=== PATIENT | female | born 1960 | race Caucasian/White ===

== ENCOUNTER → 2016-05-12 | Outpatient (CLI) | payer OTHER ==
[~2016-05-12] MED LIST: /ESOM40CA OR; /MOM400 PO; /MOXI40TA OR; /MOXI40TA PO; /ONDA4TA OR; ALBU17IN INH; ALBU17IN2 INH; ALLE25CA OR; AMBI12.52 PO; ASPI81TA85 PO; BUTRAN TD; BUTRANS PATCH TOP; CARA1TAB2 PO; CIPR500T3 PO; CIPROFLOXACIN AD; CYCL10TA PO; DEXAMETHASONE AD; DEXI60CA PO; DIPH2.5L PO; DULC10SU9 PR; EAR6.5SO3 AS; EYEDRO OD; FENT25DI22 TD; FLEXERIL PO; FLON1SPR; FLUT50SP; HYDROCORTISONE0.5 % TOP; INDE80CA PO; LEVO500T PO; LEVO750T PO; LEVO88TA3 PO; LORA10TA2 PO; LYRI150C PO; LYRI200C PO; LYRI75CA PO; MEDR8TAB PO; METH750T PO; MOME50SP; OXYC15TA76 PO; OXYC30TA84 PO; OXYCONTIN PO; OXYCPOW25 PO; PANT40TA2 PO; PENN1.5S2 TD; PEPC20TA2 OR; PERC5TAB6 PO; PROP60TA OR; PROP80TA PO; RANI300T PO; RIZA10TA2 PO; RIZATRIPTAN PO; SENO8.6T9 PO; SOMA350T PO; STOO100C PO; SUCR1SUS PO; SYNT75TA OR; VICO5TAB PO; VOLT1GEL TOP; ZANA4CAP PO; ZANA4TAB PO; ZEGERID PO; ZOFR4TAB3 PO; ZOLM5TAB PO; [UNRECOGNIZED DRUG - CODE] PO; [UNRECOGNIZED DRUG - CODE] PO; [UNRECOGNIZED DRUG - CODE] PO; [UNRECOGNIZED DRUG - OTHER] PO; [UNRECOGNIZED DRUG - OTHER] PO; [UNRECOGNIZED DRUG - REMARK] PO; depo-provera IM; propanolol PO
[2016-05-12 12:28] LABS: ANION GAP 8 MEQ/L (8-16); BLOOD UREA NITROGEN 4 MG/DL (7-18); CALCIUM LEVEL 8.7 MG/DL (8.5-10.1); CARBON DIOXIDE LEVEL 28 MEQ/L (21-32); CHLORIDE LEVEL 112 MEQ/L (98-107); CREATININE FOR GFR 0.62 MG/DL (0.55-1.02); GLOMERULAR FILTRATION RATE > 60.0 (>51); GLUCOSE, FASTING 81 MG/DL (70-105); POTASSIUM SERUM 3.4 MEQ/L (3.5-5.1); SODIUM LEVEL 148 MEQ/L (136-145)
== END ==
LOC: M LAB 10:55
PROVIDERS: ATTEND Psychiatry & Neurology Neurology
DX: Z86.73 Personal history of transient ischemic attack (TIA), and cerebral infarction without residual deficits (principal)

== ENCOUNTER → 2016-06-14 | Outpatient (CLI) | payer OTHER ==
--- NOTE | 2016-06-14 09:05 | REP ---
Complete abdominal sonography: History: Dysphasia, weight loss, epigastric abdominal pain. Comparison abdominal CT study February 19, 2016. Comparison sonography April 21, 2010. Findings: Scanning through the right upper quadrant of the abdomen in this patient who is status post cholecystectomy demonstrates normal homogeneous liver parenchyma. Common bile duct is at the upper range of normal post cholecystectomy measured at 9.5 mm. This is unchanged from the comparison CT study. Limited views of the pancreas show no abnormality. The pancreatic tail is obscured by abdominal gas. Homogeneous spleen parenchyma is seen. The spleen is not enlarged, 11.5 cm. A normal caliber aorta is seen with atherosclerotic irregularity. No ascites is seen. Renal cortical echogenicity pattern is normal and renal contours are smooth. No evidence of hydronephrosis seen. The right kidney measures 11.1 x 4.8 x 4.0 cm. Left renal dimensions are 11.3 x 4.8 x 3.3 cm. Impression: Post cholecystectomy. Aortic atherosclerosis. No other abnormality. Signed by Axel Barker MD 06/14/2016 02:59 P
== END ==
LOC: M RAD 07:22
PROVIDERS: ATTEND Internal Medicine Gastroenterology
DX: R63.4 Abnormal weight loss (principal); R10.13 Epigastric pain; R13.10 Dysphagia, unspecified

== ENCOUNTER → 2016-06-24 | Outpatient (CLI) | payer OTHER ==
[2016-06-24 10:15] LABS: BASO # 0.1 K/mm3 (0.0-0.2); BASO % 0.9 % (0.0-1.0); EOS # 0.4 K/mm3 (0.0-0.50); EOS % 4.6 % (0.0-3.0); LARGE UNSTAINED CELL # 0.1 K/mm3 (0.0-0.4); LARGE UNSTAINED CELL % 0.9 % (0.0-4.0); LYMPH # 1.8 K/mm3 (1.5-4.5); LYMPH % 20.7 % (24.0-44.0); MEAN CORPUSCULAR HEMOGLOBIN 30.4 pg (27.0-33.0); MEAN CORPUSCULAR HGB CONC 34.7 g/dl (32.0-36.5); MEAN CORPUSCULAR VOLUME 87.6 fl (80.0-96.0); MONO # 0.3 K/mm3 (0.0-0.8); NEUTROPHILS # 5.7 K/mm3 (1.8-7.7); NEUTROPHILS % 68.8 % (36.0-66.0); PLATELET COUNT, AUTOMATED 211 k/mm3 (150-450); RED CELL DISTRIBUTION WIDTH 13.4 % (11.5-14.5); WHITE BLOOD COUNT 8.3 K/mm3 (4.0-10.0)
[2016-06-24 10:49] LABS: ALBUMIN 4.2 GM/DL (3.2-5.2); ALBUMIN/GLOBULIN RATIO 1.56 (1.00-1.93); ALKALINE PHOSPHATASE 153 U/L (45-117); ALT/SGPT 25 U/L (12-78); ANION GAP 11 MEQ/L (8-16); AST/SGOT 35 U/L (15-37); BILIRUBIN,TOTAL 0.9 MG/DL (0.2-1.0); BLOOD UREA NITROGEN 11 MG/DL (7-18); CALCIUM LEVEL 9.2 MG/DL (8.5-10.1); CARBON DIOXIDE LEVEL 29 MEQ/L (21-32); CHLORIDE LEVEL 103 MEQ/L (98-107); CHOLESTEROL LEVEL 153 MG/DL (<200); CREATININE FOR GFR 0.77 MG/DL (0.55-1.02); FREE T4 2.04 NG/DL (0.76-1.46); GLOMERULAR FILTRATION RATE > 60.0 (>51); GLUCOSE, FASTING 91 MG/DL (70-105); POTASSIUM SERUM 3.2 MEQ/L (3.5-5.1); SODIUM LEVEL 143 MEQ/L (136-145); TOTAL PROTEIN 6.9 GM/DL (6.4-8.2); TRIGLYCERIDES LEVEL 135 MG/DL (<150)
== END ==
LOC: M LAB 09:49
PROVIDERS: ATTEND Nurse Practitioner Family
DX: E78.4 Other hyperlipidemia (principal); E55.9 Vitamin D deficiency, unspecified; E03.9 Hypothyroidism, unspecified; K21.9 Gastro-esophageal reflux disease without esophagitis

== ENCOUNTER → 2016-08-04 | Outpatient (CLI) | payer OTHER ==
[2016-08-04 07:36] LABS: ANION GAP 10 MEQ/L (8-16); BLOOD UREA NITROGEN 6 MG/DL (7-18); CALCIUM LEVEL 8.5 MG/DL (8.5-10.1); CARBON DIOXIDE LEVEL 27 MEQ/L (21-32); CHLORIDE LEVEL 109 MEQ/L (98-107); CREATININE FOR GFR 0.65 MG/DL (0.55-1.02); FREE T4 1.42 NG/DL (0.76-1.46); GLOMERULAR FILTRATION RATE > 60.0 (>51); GLUCOSE, FASTING 82 MG/DL (70-105); POTASSIUM SERUM 4.4 MEQ/L (3.5-5.1); SODIUM LEVEL 146 MEQ/L (136-145)
== END ==
LOC: M LAB 06:10
PROVIDERS: ATTEND Nurse Practitioner Family
DX: E03.9 Hypothyroidism, unspecified (principal); I10 Essential (primary) hypertension

== ENCOUNTER 2016-09-25 14:37 | Inpatient (IN) | payer OTHER ==
[~2016-09-25] VITALS: Ht 160 cm; Wt 49.9 kg
[2016-09-25] MEDS ORDERED: CLOPIDOGREL (14:50)
[2016-09-25] MEDS ORDERED: LEVO75TA4 PO (14:50)
[2016-09-25] MEDS ORDERED: TIZANIDINE (14:50)
[2016-09-25] MEDS ORDERED: fentaNYL 100 MCG/2 ML INJECTION (J3010) IM ONE (16:45)
[2016-09-25] MEDS ORDERED: NS 1,000 ML IV ONE (16:45)
[2016-09-25] MEDS ORDERED: METOCLOPRAMIDE INJ 10MG/2ML VIAL (J2765) IV ONE (16:45)
[2016-09-25] MEDS ORDERED: READI-CAT 2 PO ONE (18:00)
--- NOTE | 2016-09-25 18:11 | ED PDOC ---
Post-Departure Follow-Up ASKED TO SPEAK TO PT AT THIS TIME REGARDING IV PLACEMENT. NURSING STAFF WAS UNABLE TO PLACE IV SITE IN THE LEFT ARM AND PT INITIALLY REFUSING USE OF RIGHT ARM DUE TO PRIOR HX OF STROKE AFFECTING THAT SIDE. SPOKE WITH PT AND ASKED PERMISSION TO UTILIZE RIGHT ARM TO ATTEMPT IV PLACEMENT SO WE CAN TREAT WITH FLUIDS AND MEDICATIONS. PT AND DAUGHTER IN AGREEMENT AT THIS TIME. LEW ALVARES PA-C September 25, 2016 18:11
[2016-09-25 19:31] LABS: BASO % 0.1 % (0.0-1.0); EOS # 0.1 K/mm3 (0.0-0.50); EOS % 1.5 % (0.0-3.0); LARGE UNSTAINED CELL # 0.1 K/mm3 (0.0-0.4); LARGE UNSTAINED CELL % 1.1 % (0.0-4.0); LYMPH # 1.2 K/mm3 (1.5-4.5); LYMPH % 24.5 % (24.0-44.0); MEAN CORPUSCULAR HGB CONC 34.2 g/dl (32.0-36.5); MEAN CORPUSCULAR VOLUME 87.8 fl (80.0-96.0); MONO # 0.2 K/mm3 (0.0-0.8); MONO % 4.1 % (0.0-5.0); NEUTROPHILS # 3.3 K/mm3 (1.8-7.7); NEUTROPHILS % 68.6 % (36.0-66.0); PLATELET COUNT, AUTOMATED 182 k/mm3 (150-450); RED CELL DISTRIBUTION WIDTH 13.9 % (11.5-14.5); WHITE BLOOD COUNT 4.8 K/mm3 (4.0-10.0)
[2016-09-25 19:56] LABS: ALBUMIN 3.5 GM/DL (3.2-5.2); ALBUMIN/GLOBULIN RATIO 1.06 (1.00-1.93); ALKALINE PHOSPHATASE 142 U/L (45-117); ALT/SGPT 18 U/L (12-78); AMYLASE 42 U/L (25-115); ANION GAP 19 MEQ/L (8-16); AST/SGOT 27 U/L (15-37); BILIRUBIN,DIRECT 0.2 MG/DL (0.0-0.2); BILIRUBIN,TOTAL 0.7 MG/DL (0.2-1.0); BLOOD UREA NITROGEN 11 MG/DL (7-18); CALCIUM LEVEL 8.4 MG/DL (8.5-10.1); CARBON DIOXIDE LEVEL 15 MEQ/L (21-32); CHLORIDE LEVEL 107 MEQ/L (98-107); CREATININE FOR GFR 0.58 MG/DL (0.55-1.02); GLOMERULAR FILTRATION RATE > 60.0 (>51); GLUCOSE, FASTING 58 MG/DL (70-105); POTASSIUM SERUM 3.7 MEQ/L (3.5-5.1); SODIUM LEVEL 141 MEQ/L (136-145); TOTAL PROTEIN 6.8 GM/DL (6.4-8.2)
[2016-09-25] MEDS ORDERED: TRIMETHOBENZAMIDE HCL INJ 200 MG/2 ML VIAL (J3250) IM ONE (20:30)
--- NOTE | 2016-09-25 21:42 | ECGEPIP ---
Stationary ECG Study [facility] - ED Test Date: 2016-09-25 Pat Name: SINDY ROY Department: Room: - Gender: F Manager Gift: lakhwinder : [id number] Requested By: LEW Tian PA-C Order Number: [id number] Reading MD: Genaro Alberts Measurements Intervals [place] Rate: 66 P: 63 [place]: 124 QRS: 36 QRSD: 90 T: 22 QT: 436 QTc: 458 Interpretive Statements SINUS RHYTHM NONSPECIFIC T-WAVE ABNORMALITY SIMILAR TO 12/02/15 Electronically Signed On 09-25-2016 21:41:56 EDT by Genaro Alberts
[2016-09-25] MEDS ORDERED: DEXTROSE 50% 50 ML SYRINGE IV STA (23:49)
[2016-09-26] MEDS ORDERED: NS 1,000 ML IV SCH
[2016-09-26] MEDS ORDERED: BISACODYL 5 MG TAB PO PRN
[2016-09-26] MEDS ORDERED: ACETAMINOPHEN TAB 650MG DOSE (2X325MG) PO PRN
[2016-09-26] MEDS ORDERED: D5W/0.45% SODIUM CHLORIDE 1,000 ML IV SCH (00:15)
[2016-09-26] MEDS ORDERED: CLOP75TA2 PO (00:23)
[2016-09-26] MEDS ORDERED: TRAM50TA2 PO (00:32)
[2016-09-26] MEDS ORDERED: MOXIFLOXACIN HCL 400 MG in APPROPRIATE DILUENT 1 EA IV ONE (00:45)
[2016-09-26 01:31] LABS: ANION GAP 14 MEQ/L (8-16); BLOOD UREA NITROGEN 8 MG/DL (7-18); CALCIUM LEVEL 8.5 MG/DL (8.5-10.1); CARBON DIOXIDE LEVEL 18 MEQ/L (21-32); CHLORIDE LEVEL 111 MEQ/L (98-107); CREATININE FOR GFR 0.57 MG/DL (0.55-1.02); GLOMERULAR FILTRATION RATE > 60.0 (>51); GLUCOSE, FASTING 127 MG/DL (70-105); POTASSIUM SERUM 3.3 MEQ/L (3.5-5.1); SODIUM LEVEL 143 MEQ/L (136-145)
[2016-09-26] MEDS: SODIUM BICARBONATE 325 MG TAB PO SCH ×4 (01:38→16:09)
[2016-09-26] MEDS ORDERED: LORATADINE 10 MG TAB PO PRN (01:45)
[2016-09-26] MEDS ORDERED: tiZANidine 4 MG TAB PO PRN (01:45)
[2016-09-26] MEDS ORDERED: ALBUTEROL 90 MCG/ACT 8GM HFA INHALER INH PRN (01:45)
[2016-09-26] MEDS ORDERED: RIZATRIPTAN BENZOATE 10 MG TAB PO PRN (01:45)
[2016-09-26] MEDS ORDERED: FLUTICASONE PROP 0.05% NASAL SPRAY 16 GM (FLONASE) PRN (01:45)
[2016-09-26 02:10] VITALS: BP 116/66
--- NOTE | 2016-09-26 02:31 | HPEPDOC ---
General Date of Admission September 26, 2016 at 00:00 Primary Care Physician: Panda Ordaz [facility] Attending Physician: MISTI DE SANTIAGO MD Chief Complaint The patient is a 56-year-old female admitted with a reason for visit of Hypoglycemia/Metabolic Acidosis. Source: Patient, RN notes reviewed, Old records Exam Limitations: No limitations Associated Symptoms: Cough (nonproductive), Loss of appetite, Nausea, Vomiting History of Present Illness Ms. Aguilar is a 56-year-old female presents to [facility]'s emergency Department with vomiting. Past medical history significant for cerebrovascular accident, gastroesophageal reflux disease, asthma, fibromyalgia, chronic back pain, migraine, hiatal hernia , seasonal allergies, hypothyroidism, chronic sinusitis, history of ASCUS, history of HGSIL. Patient reports that vomiting started 4 days ago. Denies prior episodes. She has vomited 2-3 times per day for the last 4 days. Nonbloody vomitus. Reports feeling nauseous with associated abdominal pain. Patient denies any aggravating or alleviating factors. Denies taking any OTC's. Has not been able to keep anything down. Oral intake has been decreased. Patient reports a typical intake of a ham sandwich for lunch and soup for dinner. Denies eating breakfast. Patient reports to the emergency department today secondary to a voluminous episode of emesis. She states that she did fall asleep on the couch and when she woke up she started vomiting. She has noted a nonproductive cough that started today. Patient is alert and oriented to person, place, time, event. Patient does have some difficulty articulating secondary to cerebrovascular accident. Patient admits to a frontal headache, runny nose, mild sore throat, nausea, abdominal pain, chronic joint pain, chronic back pain, unexplained bruising, weakness, lightheadedness, fall secondary to cerebrovascular accident. Patient denies fever, night sweats, chills, blurry vision, diplopia, acute transient vision loss, tinnitus, acute transient hearing loss, chest pain, palpitations, urinary frequency, urinary urgency, hematuria, melena, hematochezia, constipation, diarrhea, peripheral edema, rashes, lesions, dizziness. Hospitalist service was consulted and patient was admitted for further medical management. Home Medications Scheduled Clopidogrel Bisulfate (Clopidogrel) 75 Mg Tab, 75 MG PO DAILY, (Reported) BEEN OFF OF IT SINCE 09/22; FOR A WEEK PRIOR TO SURGERY Levothyroxine Sodium (Synthroid) 75 Mcg Tab, 75 MCG PO DAILY, (Reported) Pregabalin (Lyrica) 200 Mg Cap, 200 MG PO TID, (Reported) Scheduled PRN (Flonase Allergy Relief) 50 Mcg/Act Spr, 2 SPRAYS NA QHS PRN for ALLERGIES, ( Reported) Albuterol Sulfate (Ventolin Hfa) 200 Puff/8 Gm Aers, 2 PUFF INH Q4H PRN for SHORTNESS OF BREATH, (Reported) Loratadine (Loratadine) 10 Mg Tab, 10 MG PO DAILY PRN for ALLERGIES, (Reported) Ondansetron (Zofran Odt) 4 Mg Tab, 4 MG PO Q8H PRN for NAUSEA OR VOMITING, ( Reported) Pantoprazole Sodium (Pantoprazole Sodium) 40 Mg Tab, 40 MG PO QHS PRN for ACID REFLUX, (Reported) Rizatriptan Benzoate (Rizatriptan Benzoate) 10 Mg Tab, 10 MG PO ASDIRECTED PRN for MIGRAINE, (Reported) Tizanidine Hydrochloride (Zanaflex) 4 Mg Tab, 8 MG PO TID PRN for MUSCLE SPASMS, (Reported) Tramadol HCl (Tramadol HCl) 50 Mg Tab, 100 MG PO Q6H PRN for PAIN, (Reported) Allergies Coded Allergies: FISH (Verified Allergy, Severe, TONGUE SWELLING, 09/25/16) Sulfa Drugs (Unverified Allergy, Severe, DYSNPEA/HIVES/VOMITING, 12/27/12) Cephalosporins (Unverified Allergy, Intermediate, HIVES, 09/25/16) Clavulanic Acid (Unverified Allergy, Intermediate, HIVES, 09/25/16) Contrast Media (Verified Allergy, Intermediate, HIVES, 09/25/16) Metronidazole (Verified Allergy, Intermediate, HIVES, 08/06/12) Nitrates, Organic (Verified Allergy, Intermediate, HIVES, 09/25/16) Nitrofurantoin (Verified Allergy, Intermediate, HIVES, 09/25/16) Penicillins (Unverified Allergy, Intermediate, HIVES, 09/25/16) Chlorhexidine (Verified Allergy, Unknown, 08/06/12) Ibuprofen (Verified Allergy, Unknown, 02/12/15) Lidocaine (Verified Allergy, Unknown, 02/12/15) Morphine (Verified Allergy, Unknown, 02/12/15) Procaine (Verified Allergy, Unknown, 02/12/15) TAPE (Verified Allergy, Unknown, 02/12/15) Clarithromycin (Verified Adverse Reaction, Mild, GI UPSET, 09/25/16) Low Fat Milk (Verified Adverse Reaction, Mild, VOMITING, DIARRHEA, 09/25/16 ) Quinolones (Verified Adverse Reaction, Mild, GI UPSET, 09/25/16) Past Medical History Medical History 1. Cerebrovascular accident 2. Asthma 3. Gastroesophageal reflux disease 4. Fibromyalgia 5. Chronic back pain 6. Hypothyroidism 7. Seasonal allergies 8. Migraine 9. Chronic sinusitis 10. Hiatal hernia 11. ASCUS 12. HGSIL Surgical History 1. EGD 2. Colonoscopy 3. Cholecystectomy 4. Surgical removal of teeth 5. Prior epidural steroid injections 6. Partial gastrectomy Family History Father: Colon cancer Mother: Healthy Social History * Smoker: Denies Alcohol: Denies Drugs: denies Recent Travel/Sick Contacts: Denies: Recent travel, Recent sick contacts Pets in the home: Cat(s) Lives independently Review of Symptoms Constitutional: Reports: Weakness, Denies: Chills, Fever, Night Sweats Eyes: Denies: Vision change ENT: Reports: Head Aches (frontal), Sore Throat, Denies: Dysphagia, Sinus Congestion, Post Nasal Drip, Epistaxis Skin: Reports: Bruising, Denies: Rash, Lesions Pulmonary: Reports: Cough (nonproductive), Denies: Dyspnea Cardiovascular: Reports: Lt Headedness, Denies: Chest Pain, Palpitations, Orthopnea, Paroxysmal Noc. Dyspnea, Edema Gastrointestinal: Reports: Nausea, Vomiting, Abdominal Pain, Denies: Diarrhea, Constipation, Melena, Hematochezia Genitourinary: Denies: Dysuria, Frequency, Incontinence, Hematuria Hematologic: Reports: Bruising Musculoskeletal: Reports: Back Pain (chronic), Joint Pain (chronic) Neurological: Reports: Weakness, Denies: Numbness Physical Examination General Exam: Positive: Alert, Cooperative, No Acute Distress Eye Exam: Positive: PERRLA, Conjunctiva & lids normal, EOMI, Negative: Sclera icteric ENT Exam: Positive: Atraumatic, Mucous membr. moist/pink, Tongue Midline, Pharyngeal Edema, Nares Patent, Negative: Pharynx Normal Neck Exam: Positive: Supple, Negative: JVD, thyromegaly, Lymphadenopathy Chest Exam: Positive: Other (coarse breath sounds noted throughout) Heart Exam: Positive: Rate Normal, Regular Rhythm, Normal S1, Normal S2, Negative: Gallops, Murmurs, Rubs Telemetry: Positive: No significant arrhythmia, Sinus Abdomen Exam: Positive: BS Hypoactive, Soft, Tenderness (to palpation), Negative: Hepatospenomegaly, Mass, Hernia Extremity Exam: Positive: Normal pulses, Other (persistent right sided weakness secondary to CVA), Negative: Clubbing, Cyanosis, Edema, Tenderness, Swelling Skin Exam: Negative: Rash, Lesion Neuro Exam: Positive: Strength at 5/5 X4 ext (left side only), Cranial Nerves 3 -12 NL Psych Exam: Positive: Oriented x 3 Vital Signs Vital Signs Date Time Temp Pulse Resp B/P (MAP) Pulse Ox O2 Delivery O2 Flow Rate FiO2 09/25/16 23:43 98.9 70 18 119/67 (84) 99 Room Air Height (in): 68 Weight (kg): 54.431 BMI (kg): 18.2 Laboratory Data Labs 24H Laboratory Tests 2 09/25/16 19:22: White Blood Count 4.8, Red Blood Count 4.82, Hemoglobin 14.4, Hematocrit 42.3, Mean Corpuscular Volume 87.8, Mean Corpuscular Hemoglobin 30.0, Mean Corpuscular Hemoglobin Concent 34.2, Red Cell Distribution Width 13.9, Platelet Count 182, Neutrophils (%) (Auto) 68.6H, Lymphocytes (%) (Auto) 24.5, Monocytes (%) (Auto) 4.1, Eosinophils (%) (Auto) 1.5, Basophils (%) (Auto) 0.1, Neutrophils # (Auto) 3.3, Lymphocytes # (Auto) 1.2L, Monocytes # (Auto) 0.2, Eosinophils # (Auto) 0.1, Basophils # (Auto) 0.0, Large Unclassified Cells % 1.1 , Large Unclassified Cells # 0.1, Anion Gap 19H, Glomerular Filtration Rate > 60.0, Estimated Mean Plasma Glucose 103, Hemoglobin A1c 5.2, Calcium Level 8.4L , Aspartate Amino Transf (AST/SGOT) 27, Alanine Aminotransferase (ALT/SGPT) 18, Alkaline Phosphatase 142H, Total Bilirubin 0.7, Direct Bilirubin 0.2, Total Creatine Kinase 67, Creatine Kinase MB 1.0, Creatine Kinase MB Relative Index 1.49, Troponin I < 0.02, C-Reactive Protein, Quantitative 2.04H, Total Protein 6.8, Albumin 3.5, Albumin/Globulin Ratio 1.06, Amylase Level 42, Lipase 66L, Thyroid Stimulating Hormone (TSH) 0.053L 09/25/16 22:43: Urine Appearance CLEAR, Urine Color YELLOW, Urine pH 6.0, Urine Specific [place] 1.021, Urine Protein 1+H, Urine Glucose (UA) NEGATIVE, Urine Ketones 2+H , Urine Urobilinogen 0.2, Urine Bilirubin NEGATIVE, Urine Leukocyte Esterase NEGATIVE, Urine Blood NEGATIVE, Urine Nitrite NEGATIVE, Urine WBC (Auto) 1, Urine RBC (Auto) 1, Urine Hyaline Casts (Auto) 0, Urine Bacteria (Auto) NEGATIVE , Urine Squamous Epithelial Cells 0, Urine Mucus (Auto) SMALL, Urine Sperm (Auto ) 09/25/16 23:40: Bedside Glucose (Misc Panel) 49L 09/26/16 00:43: Anion Gap 14, Glomerular Filtration Rate > 60.0, Calcium Level 8.5, Lactic Acid Level 0.9, Blood Urea Nitrogen 8, Creatinine 0.57, Sodium Level 143, Potassium Level 3.3L, Chloride Level 111H, Carbon Dioxide Level 18L 09/26/16 01:29: Bedside Glucose (Misc Panel) 92 CBC/BMP Laboratory Tests 09/25/16 19:22 Red Blood Count 4.82, Mean Corpuscular Volume 87.8, Mean Corpuscular Hemoglobin 30.0, Mean Corpuscular Hemoglobin Concent 34.2, Red Cell Distribution Width 13.9 , Neutrophils (%) (Auto) 68.6 H, Lymphocytes (%) (Auto) 24.5, Monocytes (%) ( Auto) 4.1, Eosinophils (%) (Auto) 1.5, Basophils (%) (Auto) 0.1, Neutrophils # ( Auto) 3.3, Lymphocytes # (Auto) 1.2 L, Monocytes # (Auto) 0.2, Eosinophils # ( Auto) 0.1, Basophils # (Auto) 0.0 09/26/16 00:43 Calcium Level 8.5 Assessment/Plan Ms. Aguilar is a 56-year-old female with a past medical history significant for cerebrovascular accident, gastroesophageal reflux disease, asthma, fibromyalgia, chronic back pain, migraine, hiatal hernia, seasonal allergies, hypothyroidism, chronic sinusitis, history of ASCUS, history of HGSIL who presents with vomiting resulting in a metabolic acidosis as well as hypoglycemia secondary to decreased oral intake. Plan / VTE VTE Prophylaxis Ordered?: Yes (heparin 5000 units subcutaneous daily) Plan Plan Vomiting Likely resulting in metabolic acidosis noted on laboratory evaluation. Patient denies alcohol intake, diabetes mellitus, salicylate ingestion, isoniazid administration. Obtain ABG. Provide fluid resuscitation with D5/0.45 NS/K20 and 100 mLs per hour. Hypoglycemia Patient is not a diabetic. Likely related to poor oral intake. Intravenous fluid resuscitation of 100 mLs per hour. Diet with no salt added. Hypokalemia Likely secondary to persistent emesis. EKG shows normal sinus rhythm. Supplementation provided in intravenous fluid resuscitation. Could consider adjusting fluids once potassium stabilizes. Nonproductive cough WBC was in optimal range. Oxygen saturation appropriate. Chest x-ray indicates possible left lower lobe infiltrate. Started patient on moxifloxacin. Obtaining Legionella, MRSA, respiratory panel, sputum culture and Gram stain. Cerebrovascular accident Patient has persistent right-sided weakness. Continue patient on Plavix. Obtain speech therapy evaluation. Obtain esophagram. Aspiration precautions. Hypothyroidism TSH was low and free T4 was high. Holding levothyroxine for the time being. Asthma Continue patient on current home medication regimen. Fibromyalgia Continue patient on current home medication regimen. Migraine Continue patient on current home medication regimen. Seasonal allergies Continue patient on current home medication regimen. Disposition Admit: Progressive care unit Anticipated hospitalization: 2 nights Attending: Dr. Barton IVF: Initiate (K20Meq/D5/0.45NS @ 100 mLs/HR) Diet: Continue Current (no added salt) Activity: Continue Current Therapy: Speech Diagnostics: Check Labs, Repeat Labs in AM, Obtain Cultures Anticipated Discharge: Home LATRELL RUIZ September 26, 2016 02:31
[2016-09-26] MEDS: PREGABALIN 100 MG CAP (LYRICA) PO SCH ×3 (02:33→15:15)
[2016-09-26] MEDS: KCL 20MEQ IN D5/0.45NS 1000ML 1,000 ML IV SCH ×2 (02:33→11:39)
[2016-09-26] MEDS: traMADol 50 MG TAB PO PRN ×3 (02:34→15:16)
[2016-09-26 02:56] LABS: ABG BASE EXCESS -9.5 (-2.0-2.0); ABG HCO3 11.4 MEQ/L (22.0-26.0); ABG PARTIAL PRESSURE O2 132.5 mmHg (75.0-100.0); ABG TOTAL CO2 11.9 MEQ/L (22.0-29.0); ABG pH (ARTERIAL) 7.467 UNITS (7.350-7.450)
[2016-09-26 02:57] LABS: ABG PARTIAL PRESSURE CO2 16.2 mmHg (35.0-45.0)
[2016-09-26 04:52] VITALS: BP 110/66
[2016-09-26 05:39] LABS: BASO % 0.2 % (0.0-1.0); LARGE UNSTAINED CELL # 0.1 K/mm3 (0.0-0.4); LARGE UNSTAINED CELL % 1.3 % (0.0-4.0); LYMPH # 0.7 K/mm3 (1.5-4.5); LYMPH % 15.2 % (24.0-44.0); MEAN CORPUSCULAR HEMOGLOBIN 30.2 pg (27.0-33.0); MEAN CORPUSCULAR HGB CONC 34.1 g/dl (32.0-36.5); MEAN CORPUSCULAR VOLUME 88.6 fl (80.0-96.0); MONO # 0.3 K/mm3 (0.0-0.8); MONO % 6.1 % (0.0-5.0); NEUTROPHILS # 3.3 K/mm3 (1.8-7.7); NEUTROPHILS % 76.3 % (36.0-66.0); PLATELET COUNT, AUTOMATED 149 k/mm3 (150-450); RED CELL DISTRIBUTION WIDTH 13.9 % (11.5-14.5); WHITE BLOOD COUNT 4.3 K/mm3 (4.0-10.0)
[2016-09-26 05:57] LABS: ERYTHROCYTE SEDIMENTATION RATE 11 mm/hr (0-30)
[2016-09-26 05:58] LABS: ANION GAP 11 MEQ/L (8-16); BLOOD UREA NITROGEN 8 MG/DL (7-18); CALCIUM LEVEL 7.8 MG/DL (8.5-10.1); CARBON DIOXIDE LEVEL 18 MEQ/L (21-32); CHLORIDE LEVEL 115 MEQ/L (98-107); CREATININE FOR GFR 0.52 MG/DL (0.55-1.02); GLOMERULAR FILTRATION RATE > 60.0 (>51); GLUCOSE, FASTING 102 MG/DL (70-105); MAGNESIUM LEVEL 1.7 MG/DL (1.8-2.4); POTASSIUM SERUM 3.7 MEQ/L (3.5-5.1); SODIUM LEVEL 144 MEQ/L (136-145)
[2016-09-26] MEDS ORDERED: LEVOTHYROXINE 0.075 MG TAB (75 MCG) PO SCH (06:00)
[2016-09-26] MEDS: HEPARIN SOD (PORCINE) 5000 UNITS/ML VIAL SC SCH ×2 (06:14→14:21)
[2016-09-26 08:00] VITALS: BP 111/71
[2016-09-26] MEDS ORDERED: CALCIUM GLUCONATE 1,000 MG in D5W MINI-BAG PLUS 100 ML IV ONE (08:00)
[2016-09-26] MEDS ORDERED: MAG SULF 1GM/100ML (MAG RUN) 1 GM in APPROPRIATE DILUENT 1 EA IV ONE (08:00)
--- NOTE | 2016-09-26 08:09 | REP ---
Clinical: Lower chest and abdominal pain . Comparison: 04/17/2016 . Technique: PA and lateral. Findings: The mediastinum and cardiac silhouette are normal. The lung rizzo demonstrate stable chronic changes without acute consolidation, effusion, or pneumothorax. The skeletal structures are intact and normal. Impression: No acute cardiopulmonary process. If the patient remains symptomatic consider chest CT for further investigation. Signed by Ron Willett MD 09/26/2016 08:00 A
[2016-09-26] MEDS ORDERED: E-Z-PAQUE 96% w/w SUSP 176GM BTL As Ordered ONE (08:10)
[2016-09-26] MEDS ORDERED: E-Z-GAS II EFFERVESCENT PACKET (SODIUM BICARB./CITRIC ACID/SIMETHICONE) As Ordered ONE (08:11)
[2016-09-26] MEDS ORDERED: E-Z-HD 98% w/w 340GM SUSP BTL As Ordered ONE (08:11)
[2016-09-26] MEDS: CLOPIDOGREL 75 MG TAB PO SCH ×2 (08:14→08:16)
[2016-09-26 09:06] LABS: ABG BASE EXCESS -6.4 (-2.0-2.0); ABG HCO3 16.1 MEQ/L (22.0-26.0); ABG PARTIAL PRESSURE CO2 24.6 mmHg (35.0-45.0); ABG PARTIAL PRESSURE O2 86.7 mmHg (75.0-100.0); ABG STANDARD HCO3 19.2 MEQ/L (22.0-26.0); ABG TOTAL CO2 16.9 MEQ/L (22.0-29.0); ABG pH (ARTERIAL) 7.434 UNITS (7.350-7.450)
[2016-09-26] MEDS: ONDANSETRON 4MG/2ML VIAL (J2405) IV PRN ×2 (10:04→16:09)
[2016-09-26 11:56] VITALS: BP 107/64
--- NOTE | 2016-09-26 12:33 | IPNPDOC ---
Subjective Date Seen The patient was seen on 09/26/16. Subjective Chief Complaint/HPI The patient is a 56-year-old female admitted with a reason for visit of Hypoglycemia/Metabolic Acidosis. General: Denies: Chills, Night Sweats Constitutional: Denies: Chills, Fever Eyes: Denies: Pain, Vision change ENT: Denies: Head Aches, Ear Pain Skin: Denies: Rash, Lesions Pulmonary: Denies: Dyspnea, Cough Cardiovascular: Denies: Chest Pain, Palpitations Gastrointestinal: Reports: Nausea, Vomiting, Denies: Abdominal Pain, Diarrhea Genitourinary: Denies: Dysuria, Frequency Hematologic: Denies: Bruising, Bleeding Excessively Endocrine: Denies: Polydipsia, Polyphagia Objective Physical Examination General Exam: Positive: Alert, Cooperative, No Acute Distress Eye Exam: Positive: PERRLA, Conjunctiva & lids normal, EOMI, Negative: Sclera icteric ENT Exam: Positive: Atraumatic, Mucous membr. moist/pink, Tongue Midline, Pharyngeal Edema, Nares Patent, Negative: Pharynx Normal Neck Exam: Positive: Supple, Negative: JVD, thyromegaly, Lymphadenopathy Chest Exam: Positive: Other (coarse breath sounds noted throughout) Heart Exam: Positive: Rate Normal, Regular Rhythm, Normal S1, Normal S2, Negative: Gallops, Murmurs, Rubs Telemetry: Positive: Sinus Abdomen Exam: Positive: Soft, Negative: Tenderness, Hepatospenomegaly, Mass, Hernia Extremity Exam: Positive: Other (persistent right sided weakness secondary to CVA), Negative: Edema, Tenderness, Swelling Skin Exam: Negative: Rash, Lesion Neuro Exam: Positive: Strength at 5/5 X4 ext (left side only), Cranial Nerves 3 -12 NL Psych Exam: Positive: Oriented x 3 Assessment /Plan Plan/VTE VTE Prophylaxis Ordered?: Yes (heparin 5000 units subcutaneous daily) Plan IVF: Initiate (K20Meq/D5/0.45NS @ 100 mLs/HR) Diet: Continue Current (no added salt) Activity: Continue Current Therapy: Speech Diagnostics: Check Labs, Repeat Labs in AM, Obtain Cultures Anticipated Discharge: Home Nausea and Vomiting 2/2 Rhinovirus/Enterovirus Patient feeling much better this morning after IVF hydration and repletion of electrolytes CT Abd with no acute GI abnormalities Patient advanced to PO diet Hypoglycemia likely 2/2 above Blood Sugar levels have normalized s/p IVF hydration PO Diet started Hx of Cerebrovascular accident Continue Plavix Hypothyroidism TSH was low and free T4 was high Will hold levothyroxine for now Asthma Continue albuterol Fibromyalgia Continue Zanaflex, tramadol, Lyrica Migraine Continue Maxalt prn Seasonal allergies Continue Claritin DVT prophylaxis Heparin subcutaneous Disposition-anticipate discharge in the next 24 hours pending clinical improvement. VS, I&O, 24H, Fishbone Vital Signs/I&O Vital Signs Date Time Temp Pulse Resp B/P (MAP) Pulse Ox O2 Delivery O2 Flow Rate FiO2 09/26/16 11:56 97.0 86 20 107/64 (78) 96 Room Air I&O- Last 24 Hours up to 6 AM 09/26/16 06:00 Intake Total 1690 ml Balance 1690 ml Laboratory Data 24H LABS Laboratory Tests 2 09/25/16 19:22: White Blood Count 4.8, Red Blood Count 4.82, Hemoglobin 14.4, Hematocrit 42.3, Mean Corpuscular Volume 87.8, Mean Corpuscular Hemoglobin 30.0, Mean Corpuscular Hemoglobin Concent 34.2, Red Cell Distribution Width 13.9, Platelet Count 182, Neutrophils (%) (Auto) 68.6H, Lymphocytes (%) (Auto) 24.5, Monocytes (%) (Auto) 4.1, Eosinophils (%) (Auto) 1.5, Basophils (%) (Auto) 0.1, Neutrophils # (Auto) 3.3, Lymphocytes # (Auto) 1.2L, Monocytes # (Auto) 0.2, Eosinophils # (Auto) 0.1, Basophils # (Auto) 0.0, Large Unclassified Cells % 1.1 , Large Unclassified Cells # 0.1, Anion Gap 19H, Glomerular Filtration Rate > 60.0, Estimated Mean Plasma Glucose 103, Hemoglobin A1c 5.2, Calcium Level 8.4L , Aspartate Amino Transf (AST/SGOT) 27, Alanine Aminotransferase (ALT/SGPT) 18, Alkaline Phosphatase 142H, Total Bilirubin 0.7, Direct Bilirubin 0.2, Total Creatine Kinase 67, Creatine Kinase MB 1.0, Creatine Kinase MB Relative Index 1.49, Troponin I < 0.02, C-Reactive Protein, Quantitative 2.04H, Total Protein 6.8, Albumin 3.5, Albumin/Globulin Ratio 1.06, Amylase Level 42, Lipase 66L, Thyroid Stimulating Hormone (TSH) 0.053L 09/25/16 22:43: Urine Appearance CLEAR, Urine Color YELLOW, Urine pH 6.0, Urine Specific [place] 1.021, Urine Protein 1+H, Urine Glucose (UA) NEGATIVE, Urine Ketones 2+H , Urine Urobilinogen 0.2, Urine Bilirubin NEGATIVE, Urine Leukocyte Esterase NEGATIVE, Urine Blood NEGATIVE, Urine Nitrite NEGATIVE, Urine WBC (Auto) 1, Urine RBC (Auto) 1, Urine Hyaline Casts (Auto) 0, Urine Bacteria (Auto) NEGATIVE , Urine Squamous Epithelial Cells 0, Urine Mucus (Auto) SMALL, Urine Sperm (Auto ) 09/25/16 23:40: Bedside Glucose (Misc Panel) 49L 09/26/16 00:43: Anion Gap 14, Glomerular Filtration Rate > 60.0, Calcium Level 8.5, Lactic Acid Level 0.9, Blood Urea Nitrogen 8, Creatinine 0.57, Sodium Level 143, Potassium Level 3.3L, Chloride Level 111H, Carbon Dioxide Level 18L 09/26/16 01:29: Bedside Glucose (Misc Panel) 92 09/26/16 02:23: Free Thyroxine 1.66H 09/26/16 02:46: Blood Gas Bicarbonate Standard 17.0L, Arterial Blood pH 7.467H, Arterial Blood Partial Pressure CO2 16.2*L, Arterial Blood Partial Pressure O2 132.5H, Arterial Blood Total CO2 11.9L, Arterial Blood HCO3 11.4L, Arterial Blood Base Excess -9.5L, Arterial Blood Oxygen Saturation 98.6 09/26/16 05:14: White Blood Count 4.3, Red Blood Count 4.12, Hemoglobin 12.5, Hematocrit 36.5, Mean Corpuscular Volume 88.6, Mean Corpuscular Hemoglobin 30.2, Mean Corpuscular Hemoglobin Concent 34.1, Red Cell Distribution Width 13.9, Platelet Count 149L, Neutrophils (%) (Auto) 76.3H, Lymphocytes (%) (Auto) 15.2L, Monocytes (%) (Auto) 6.1H, Eosinophils (%) (Auto) 1.0, Basophils (%) (Auto) 0.2 , Neutrophils # (Auto) 3.3, Lymphocytes # (Auto) 0.7L, Monocytes # (Auto) 0.3, Eosinophils # (Auto) 0.0, Basophils # (Auto) 0.0, Large Unclassified Cells % 1.3 , Large Unclassified Cells # 0.1, Erythrocyte Sedimentation Rate 11, Anion Gap 11, Glomerular Filtration Rate > 60.0, Blood Urea Nitrogen 8, Creatinine 0.52L, Sodium Level 144, Potassium Level 3.7, Chloride Level 115H, Carbon Dioxide Level 18L, Calcium Level 7.8L, Total Creatine Kinase 214#H, Magnesium Level 1.7L , Creatine Kinase MB 2.8, Creatine Kinase MB Relative Index 1.30, Troponin I < 0.02, Thyroid Stimulating Hormone (TSH) 0.049L 09/26/16 08:56: Blood Gas Bicarbonate Standard 19.2L, Arterial Blood pH 7.434, Arterial Blood Partial Pressure CO2 24.6L, Arterial Blood Partial Pressure O2 86.7, Arterial Blood Total CO2 16.9L, Arterial Blood HCO3 16.1L, Arterial Blood Base Excess - 6.4L, Arterial Blood Oxygen Saturation 96.9 CBC/BMP Laboratory Tests 09/25/16 19:22 Red Blood Count 4.82, Mean Corpuscular Volume 87.8, Mean Corpuscular Hemoglobin 30.0, Mean Corpuscular Hemoglobin Concent 34.2, Red Cell Distribution Width 13.9 , Neutrophils (%) (Auto) 68.6 H, Lymphocytes (%) (Auto) 24.5, Monocytes (%) ( Auto) 4.1, Eosinophils (%) (Auto) 1.5, Basophils (%) (Auto) 0.1, Neutrophils # ( Auto) 3.3, Lymphocytes # (Auto) 1.2 L, Monocytes # (Auto) 0.2, Eosinophils # ( Auto) 0.1, Basophils # (Auto) 0.0 09/26/16 00:43 Calcium Level 8.5 09/26/16 05:14 Red Blood Count 4.12, Mean Corpuscular Volume 88.6, Mean Corpuscular Hemoglobin 30.2, Mean Corpuscular Hemoglobin Concent 34.1, Red Cell Distribution Width 13.9 , Neutrophils (%) (Auto) 76.3 H, Lymphocytes (%) (Auto) 15.2 L, Monocytes (%) ( Auto) 6.1 H, Eosinophils (%) (Auto) 1.0, Basophils (%) (Auto) 0.2, Neutrophils # (Auto) 3.3, Lymphocytes # (Auto) 0.7 L, Monocytes # (Auto) 0.3, Eosinophils # (Auto) 0.0, Basophils # (Auto) 0.0, Calcium Level 7.8 L, Total Creatine Kinase 214 #H Microbiology Microbiology 09/26/16 Blood Culture, Received Pending 09/26/16 Blood Culture, Received Pending 09/26/16 MRSA Screen, Resulted Pending 09/26/16 Respiratory Virus Panel (PCR) ([facility]) - Final, Resulted Human Rhinovirus/Enterovirus MARLENY DUMAS MD September 26, 2016 12:33
[2016-09-27] MEDS ORDERED: MOXIFLOXACIN 400 MG TAB PO SCH (06:00)
--- NOTE | 2016-10-06 07:56 | REP ---
Clinical: Upper abdominal pain with nausea and vomiting. Findings: A very subtle ground-glass opacities in the left lower lobe may reflect acute infiltrate. Liver, spleen, pancreas, bilateral adrenal glands and kidneys are normal. The enteric system is without obstruction or acute inflammatory process. Normal terminal ileum and appendix identified in the right lower quadrant. Pelvis demonstrates normal bladder and age-appropriate uterus/adnexa. No ascites. No free air. No adenopathy. Abdominal aorta without aneurysm. Surrounding musculoskeletal structures intact. Impression: 1. Cannot exclude a very subtle early left lower lobe pneumonia/infiltrate. 2. No acute intra-abdominal or pelvic pathology appreciated. Signed by Ron Willett MD 10/06/2016 07:47 A
== END 2016-09-26 16:56 | disposition left against medical advice (07) | DRG 425 ==
LOC: M ED 16:37 → M ED INP 09-26 → M PCU 09-26 02:03
PROVIDERS: ADMIT General Practice; ATTEND Hospitalist
DX: E87.2 Acidosis (principal); I69.351 Hemiplegia and hemiparesis following cerebral infarction affecting right dominant side; B34.9 Viral infection, unspecified; E16.2 Hypoglycemia, unspecified; E87.6 Hypokalemia; R11.10 Vomiting, unspecified; B97.10 Unspecified enterovirus as the cause of diseases classified elsewhere; E03.9 Hypothyroidism, unspecified; K21.9 Gastro-esophageal reflux disease without esophagitis; J45.909 Unspecified asthma, uncomplicated; M79.7 Fibromyalgia; M54.5 Low back pain; Z79.899 Other long term (current) drug therapy; Z88.2 Allergy status to sulfonamides; Z88.8 Allergy status to other drugs, medicaments and biological substances; Z88.5 Allergy status to narcotic agent; Z91.041 Radiographic dye allergy status; Z91.013 Allergy to seafood; Z88.0 Allergy status to penicillin; Z91.011 Allergy to milk products; K44.9 Diaphragmatic hernia without obstruction or gangrene; J32.9 Chronic sinusitis, unspecified

== ENCOUNTER → 2017-05-03 | Outpatient (CLI) | payer OTHER ==
[2017-05-03 07:15] LABS: BASO # 0.1 10^3/uL (0.0-0.2); BASO % 1.6 % (0.0-1.0); EOS # 0.3 10^3/uL (0.0-0.50); EOS % 3.9 % (0.0-3.0); IMMATURE GRANULOCYTE % 0.2 % (0-0); LYMPH # 1.8 10^3/uL (1.5-4.5); LYMPH % 27.6 % (24.0-44.0); MEAN CORPUSCULAR HEMOGLOBIN 28.9 pg (27.0-33.0); MEAN CORPUSCULAR HGB CONC 33.6 g/dl (32.0-36.5); MEAN CORPUSCULAR VOLUME 86.2 fl (80.0-96.0); MONO # 0.3 10^3/uL (0.0-0.8); MONO % 4.2 % (0.0-5.0); NEUTROPHILS % 62.5 % (36.0-66.0); PLATELET COUNT, AUTOMATED 224 10^3/uL (150-450); RED CELL DISTRIBUTION WIDTH 13.1 % (11.5-14.5); WHITE BLOOD COUNT 6.4 10^3/uL (4.0-10.0)
[2017-05-03 07:48] LABS: ALBUMIN 3.6 GM/DL (3.2-5.2); ALBUMIN/GLOBULIN RATIO 1.44 (1.00-1.93); ALKALINE PHOSPHATASE 142 U/L (45-117); ALT/SGPT 21 U/L (12-78); ANION GAP 6 MEQ/L (8-16); AST/SGOT 33 U/L (7-37); BILIRUBIN,TOTAL 0.7 MG/DL (0.2-1.0); BLOOD UREA NITROGEN 6 MG/DL (7-18); CALCIUM LEVEL 8.6 MG/DL (8.5-10.1); CARBON DIOXIDE LEVEL 28 MEQ/L (21-32); CHLORIDE LEVEL 112 MEQ/L (98-107); CHOLESTEROL LEVEL 98 MG/DL (<200); CREATININE FOR GFR 0.54 MG/DL (0.55-1.02); FREE T4 1.48 NG/DL (0.76-1.46); GLOMERULAR FILTRATION RATE > 60.0 (>51); GLUCOSE, FASTING 104 MG/DL (70-105); POTASSIUM SERUM 3.8 MEQ/L (3.5-5.1); SODIUM LEVEL 146 MEQ/L (136-145); TOTAL PROTEIN 6.1 GM/DL (6.4-8.2); TRIGLYCERIDES LEVEL 73 MG/DL (<150)
== END ==
LOC: M LAB 06:38
DX: I10 Essential (primary) hypertension (principal); E55.9 Vitamin D deficiency, unspecified; E03.9 Hypothyroidism, unspecified; E78.4 Other hyperlipidemia
CPT/HCPCS: 84443

== ENCOUNTER → 2017-07-04 | Outpatient (CLI) | payer OTHER | LOC: M RAD 08:22 | DX: J32.9 Chronic sinusitis, unspecified (principal) | CPT/HCPCS: 70486 ==

== ENCOUNTER → 2017-09-06 | Outpatient (CLI) | payer OTHER ==
[2017-09-06 08:58] LABS: BASO # 0.1 10^3/uL (0.0-0.2); BASO % 0.6 % (0.0-1.0); EOS # 0.1 10^3/uL (0.0-0.50); EOS % 0.8 % (0.0-3.0); HEMATOCRIT 43.6 % (36.0-47.0); HEMOGLOBIN 14.4 g/dl (12.0-15.5); IMMATURE GRANULOCYTE % 0.3 % (0-3.0); LYMPH # 1.5 10^3/uL (1.5-4.5); LYMPH % 16.5 % (24.0-44.0); MEAN CORPUSCULAR HEMOGLOBIN 29.1 pg (27.0-33.0); MEAN CORPUSCULAR VOLUME 88.1 fl (80.0-96.0); MONO # 0.4 10^3/uL (0.0-0.8); MONO % 4.3 % (0.0-5.0); NEUTROPHILS # 6.9 10^3/uL (1.8-7.7); NEUTROPHILS % 77.5 % (36.0-66.0); PLATELET COUNT, AUTOMATED 207 10^3/uL (150-450); RED BLOOD COUNT 4.95 10^6/uL (4.00-5.40); RED CELL DISTRIBUTION WIDTH 13.1 % (11.5-14.5); WHITE BLOOD COUNT 8.9 10^3/uL (4.0-10.0)
[2017-09-06 09:26] LABS: ALBUMIN 4.3 GM/DL (3.2-5.2); ALBUMIN/GLOBULIN RATIO 1.48 (1.00-1.93); ALKALINE PHOSPHATASE 138 U/L (45-117); ALT/SGPT 19 U/L (12-78); ANION GAP 9 MEQ/L (8-16); AST/SGOT 25 U/L (7-37); BILIRUBIN,TOTAL 0.7 MG/DL (0.2-1.0); BLOOD UREA NITROGEN 6 MG/DL (7-18); CALCIUM LEVEL 9.4 MG/DL (8.5-10.1); CARBON DIOXIDE LEVEL 29 MEQ/L (21-32); CHLORIDE LEVEL 108 MEQ/L (98-107); CHOLESTEROL LEVEL 134 MG/DL (<200); FREE T3 2.3 PG/ML (2.2-4.0); FREE T4 1.33 NG/DL (0.76-1.46); GLOMERULAR FILTRATION RATE > 60.0 (>51); GLUCOSE, FASTING 86 MG/DL (70-100); HDL CHOLESTEROL 68 MG/DL (>40); LDL CHOLESTEROL 47.8 MG/DL (<100); MAGNESIUM LEVEL 2.3 MG/DL (1.8-2.4); NON-HDL-C 66 MG/DL; POTASSIUM SERUM 4.3 MEQ/L (3.5-5.1); SODIUM LEVEL 146 MEQ/L (136-145); THYROID STIMULATING HORMONE 0.261 uIU/ML (0.358-3.740); TOTAL PROTEIN 7.2 GM/DL (6.4-8.2); TRIGLYCERIDES LEVEL 91 MG/DL (<150)
== END ==
LOC: M LAB 08:08
DX: E78.4 Other hyperlipidemia (principal); E55.9 Vitamin D deficiency, unspecified; K21.9 Gastro-esophageal reflux disease without esophagitis; E03.9 Hypothyroidism, unspecified
CPT/HCPCS: 83735

== ENCOUNTER 2017-10-01 17:45 | Emergency (ER) | payer OTHER ==
[2017-10-01 18:52] LABS: BASO # 0.1 10^3/uL (0.0-0.2); BASO % 0.6 % (0.0-1.0); EOS # 0.2 10^3/uL (0.0-0.50); EOS % 1.7 % (0.0-3.0); HEMATOCRIT 39.1 % (36.0-47.0); HEMOGLOBIN 13.3 g/dl (12.0-15.5); IMMATURE GRANULOCYTE % 0.3 % (0-3.0); LYMPH # 2.2 10^3/uL (1.5-4.5); LYMPH % 18.1 % (24.0-44.0); MEAN CORPUSCULAR HEMOGLOBIN 29.7 pg (27.0-33.0); MEAN CORPUSCULAR VOLUME 87.3 fl (80.0-96.0); MONO # 0.6 10^3/uL (0.0-0.8); MONO % 4.8 % (0.0-5.0); NEUTROPHILS # 9.1 10^3/uL (1.8-7.7); NEUTROPHILS % 74.5 % (36.0-66.0); PLATELET COUNT, AUTOMATED 231 10^3/uL (150-450); RED BLOOD COUNT 4.48 10^6/uL (4.00-5.40); RED CELL DISTRIBUTION WIDTH 13.4 % (11.5-14.5); WHITE BLOOD COUNT 12.2 10^3/uL (4.0-10.0)
[2017-10-01 19:03] LABS: INR 0.95; PROTHROMBIN TIME 12.8 SECONDS (12.4-14.5)
[2017-10-01 19:04] LABS: PARTIAL THROMBOPLASTIN TIME 29.7 SECONDS (26.8-37.9)
[2017-10-01 19:11] LABS: ANION GAP 6 MEQ/L (8-16); BLOOD UREA NITROGEN 7 MG/DL (7-18); CALCIUM LEVEL 9.3 MG/DL (8.5-10.1); CARBON DIOXIDE LEVEL 29 MEQ/L (21-32); CHLORIDE LEVEL 107 MEQ/L (98-107); CK-MB VALUE MASS < 1.0 NG/ML (<3.6); CPK CREATINE PHOSPHOKINASE 77 U/L (26-192); CREATININE FOR GFR 0.82 MG/DL (0.55-1.30); GLOMERULAR FILTRATION RATE > 60.0 (>51); GLUCOSE, FASTING 69 MG/DL (70-100); MB/CK RELATIVE INDEX 1.29 (< OR =4); POTASSIUM SERUM 3.6 MEQ/L (3.5-5.1); SODIUM LEVEL 142 MEQ/L (136-145); TROPONIN I < 0.02 NG/ML (< 0.10)
[2017-10-01] MEDS: ONDANSETRON 4MG/2ML VIAL (J2405) IV (19:53)
[2017-10-01] MEDS: HYDROmorphone HCL 1 MG/ML SYRINGE (J1170) IV ×2 (19:54→21:21)
[2017-10-01] MEDS: NS 1,000 ML IV (20:00)
== END 2017-10-01 22:50 | disposition left against medical advice (07) ==
LOC: M ED 17:45
DX: R55 Syncope and collapse (principal); M25.571 Pain in right ankle and joints of right foot; R51 Headache; Z86.73 Personal history of transient ischemic attack (TIA), and cerebral infarction without residual deficits; Z76.5 Malingerer [conscious simulation]; Z91.041 Radiographic dye allergy status; Z91.013 Allergy to seafood; Z91.011 Allergy to milk products; Z88.8 Allergy status to other drugs, medicaments and biological substances; Z88.5 Allergy status to narcotic agent; Z88.4 Allergy status to anesthetic agent; Z88.1 Allergy status to other antibiotic agents; Z88.0 Allergy status to penicillin; Z88.2 Allergy status to sulfonamides; Z91.048 Other nonmedicinal substance allergy status; Z79.899 Other long term (current) drug therapy; Z79.02 Long term (current) use of antithrombotics/antiplatelets
CPT/HCPCS: J1170

== ENCOUNTER 2017-10-22 21:15 | Emergency (ER) | payer OTHER ==
[2017-10-22] MEDS: NS 1,000 ML IV (20:31)
[2017-10-22] MEDS: GI COCKTAIL 50ML BTL(HYOSCYAMINE/MAALOX/LIDOCAINE VISCOUS)(1:3:1) PO (20:35)
[2017-10-22 20:38] LABS: BASO # 0.1 10^3/uL (0.0-0.2); BASO % 0.3 % (0.0-1.0); HEMATOCRIT 39.4 % (36.0-47.0); HEMOGLOBIN 13.5 g/dl (12.0-15.5); IMMATURE GRANULOCYTE % 0.3 % (0-3.0); LYMPH # 0.7 10^3/uL (1.5-4.5); LYMPH % 4.6 % (24.0-44.0); MEAN CORPUSCULAR HEMOGLOBIN 29.2 pg (27.0-33.0); MEAN CORPUSCULAR HGB CONC 34.3 g/dl (32.0-36.5); MEAN CORPUSCULAR VOLUME 85.3 fl (80.0-96.0); MONO # 0.6 10^3/uL (0.0-0.8); MONO % 4.2 % (0.0-5.0); NEUTROPHILS # 13.5 10^3/uL (1.8-7.7); NEUTROPHILS % 90.6 % (36.0-66.0); PLATELET COUNT, AUTOMATED 245 10^3/uL (150-450); RED BLOOD COUNT 4.62 10^6/uL (4.00-5.40); RED CELL DISTRIBUTION WIDTH 12.9 % (11.5-14.5); WHITE BLOOD COUNT 14.9 10^3/uL (4.0-10.0)
[2017-10-22 20:48] LABS: ALBUMIN 3.5 GM/DL (3.2-5.2); BLOOD UREA NITROGEN 9 MG/DL (7-18); CALCIUM LEVEL 8.8 MG/DL (8.5-10.1); CARBON DIOXIDE LEVEL 24 MEQ/L (21-32); CHLORIDE LEVEL 104 MEQ/L (98-107); GLUCOSE, FASTING 73 MG/DL (70-100); POTASSIUM SERUM 4.9 MEQ/L (3.5-5.1); SODIUM LEVEL 141 MEQ/L (136-145)
[2017-10-22 20:53] LABS: D-DIMER QUANT 1066.8 ng/ml (<500)
[2017-10-22 20:55] LABS: LACTIC ACID SEPSIS PROTOCOL 1.6 MMOL/L (0.4-2.0)
[2017-10-22 21:02] LABS: ALKALINE PHOSPHATASE 186 U/L (45-117); ALT/SGPT 12 U/L (12-78); AST/SGOT 39 U/L (7-37); BILIRUBIN,DIRECT 0.1 MG/DL (0.0-0.2); BILIRUBIN,TOTAL 1.2 MG/DL (0.2-1.0); CK-MB VALUE MASS < 1.0 NG/ML (<3.6); CPK CREATINE PHOSPHOKINASE 102 U/L (26-192); CREATININE FOR GFR 0.69 MG/DL (0.55-1.30); TOTAL PROTEIN 7.1 GM/DL (6.4-8.2)
[2017-10-22] MEDS: ACETAMINOPHEN TAB 650MG DOSE (2X325MG) PO (21:07)
[2017-10-22 21:24] LABS: LIPASE 55 U/L (73-393); TROPONIN I < 0.02 NG/ML (< 0.10)
[2017-10-22 22:11] LABS: ANION GAP 13 MEQ/L (8-16); MB/CK RELATIVE INDEX 0.98 (< OR =4)
[2017-10-22 22:12] LABS: ALBUMIN/GLOBULIN RATIO 0.97 (1.00-1.93)
[2017-10-22 22:20] LABS: INR 1.03; PROTHROMBIN TIME 13.6 SECONDS (12.4-14.5)
[2017-10-22] MEDS ORDERED: ISOVUE-370 76% 100ML VIAL (Q9967) As Ordered (23:42)
[2017-10-23] MEDS: AZITHROMYCIN INJ 500 MG, VIAL MATE ADAPTER 1 EACH in D5W 250 ML IV (01:15)
[2017-10-23] MEDS: cefTRIAXone SOD 1 GM in D5W MINI-BAG PLUS 50 ML IV (01:28)
== END 2017-10-23 03:15 | disposition home or self-care (01) ==
LOC: M ED 10-23 03:15
DX: J18.9 Pneumonia, unspecified organism (principal); R00.0 Tachycardia, unspecified; E07.9 Disorder of thyroid, unspecified; K21.9 Gastro-esophageal reflux disease without esophagitis; M79.7 Fibromyalgia; M54.9 Dorsalgia, unspecified; K44.9 Diaphragmatic hernia without obstruction or gangrene; G43.909 Migraine, unspecified, not intractable, without status migrainosus; Z86.73 Personal history of transient ischemic attack (TIA), and cerebral infarction without residual deficits; Z91.041 Radiographic dye allergy status; Z91.013 Allergy to seafood; Z91.011 Allergy to milk products; Z88.1 Allergy status to other antibiotic agents; Z88.8 Allergy status to other drugs, medicaments and biological substances; Z88.5 Allergy status to narcotic agent; Z88.4 Allergy status to anesthetic agent; Z88.0 Allergy status to penicillin; Z88.2 Allergy status to sulfonamides; Z79.899 Other long term (current) drug therapy; Z79.02 Long term (current) use of antithrombotics/antiplatelets
CPT/HCPCS: J0456

== ENCOUNTER 2018-01-02 10:14 | Emergency (ER) | payer OTHER ==
[2018-01-02 13:09] LABS: ANION GAP 6 MEQ/L (8-16); BLOOD UREA NITROGEN 4 MG/DL (7-18); CALCIUM LEVEL 9.3 MG/DL (8.5-10.1); CARBON DIOXIDE LEVEL 28 MEQ/L (21-32); CHLORIDE LEVEL 107 MEQ/L (98-107); CPK CREATINE PHOSPHOKINASE 65 U/L (26-192); CREATININE FOR GFR 0.68 MG/DL (0.55-1.30); GLOMERULAR FILTRATION RATE > 60.0 (>51); GLUCOSE, FASTING 76 MG/DL (70-100); POTASSIUM SERUM 3.4 MEQ/L (3.5-5.1); SODIUM LEVEL 141 MEQ/L (136-145)
== END 2018-01-02 13:41 | disposition home or self-care (01) ==
LOC: M ED 10:14
DX: R55 Syncope and collapse (principal); K21.9 Gastro-esophageal reflux disease without esophagitis; G89.4 Chronic pain syndrome; M79.7 Fibromyalgia; Z86.73 Personal history of transient ischemic attack (TIA), and cerebral infarction without residual deficits; F17.200 Nicotine dependence, unspecified, uncomplicated; Z91.041 Radiographic dye allergy status; Z91.013 Allergy to seafood; Z88.3 Allergy status to other anti-infective agents; Z88.8 Allergy status to other drugs, medicaments and biological substances; Z88.4 Allergy status to anesthetic agent; Z88.1 Allergy status to other antibiotic agents; Z88.5 Allergy status to narcotic agent; Z88.0 Allergy status to penicillin; Z88.2 Allergy status to sulfonamides; Z91.048 Other nonmedicinal substance allergy status; Z79.899 Other long term (current) drug therapy; Z79.02 Long term (current) use of antithrombotics/antiplatelets
CPT/HCPCS: 70450

== ENCOUNTER 2018-06-03 15:47 | Emergency (ER) | payer OTHER ==
[~2018-06-03] VITALS: Ht 172.7 cm; Wt 45.5 kg
[~2018-06-03 15:47] MED LIST changes: +CLOP75TA2 PO; +CLOPIDOGREL; +LEVO75TA4 PO; +LORA-243 PO; -LORA10TA2 PO; -PANT40TA2 PO; +PANT40TA3 PO; +PERC5TAB12 PO; -PERC5TAB6 PO; +TIZANIDINE; +TRAM50TA2 PO; +ZITHTAB PO; +ZOFR4TAB14 PO; -ZOFR4TAB3 PO
--- NOTE | 2018-06-03 16:40 | REP ---
CHEST, SINGLE VIEW: AP view of the chest was performed and compared to prior study of 10/22/2017. There is no acute infiltrate or pulmonary edema. The heart is normal in size. There is tortuosity of the thoracic aorta. Mediastinal silhouette is unchanged. IMPRESSION: No acute infiltrate. Electronically Signed by Vickey Blevins MD 06/03/2018 04:57 P
--- NOTE | 2018-06-03 16:52 | REP ---
CT study of the brain without contrast: History: Altered mental status. Comparison CT studies are reviewed. The most recent of these is from January 02, 2018. 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 There is a benign rim calcification superior to the left carotid siphon unchanged from multiple prior CT studies. There is exvacuo enlargement of the left lateral ventricle and there is diffuse cerebral atrophy. There is no evidence of intracranial hemorrhage. Cisterna magna is developmentally prominent as before. There is no mass or extra-axial fluid collection. No midline shift is seen. Vascular calcifications again noted. Visualized paranasal sinuses are clear. No bony defect is seen. Impression: Stable chronic changes including old infarction. Diffuse atrophy and vascular calcification. No acute intracranial abnormality. Electronically Signed by Axel Barker MD 06/03/2018 04:56 P
[2018-06-03 17:21] LABS: BASO # 0.1 10^3/uL (0.0-0.2); BASO % 0.5 % (0.0-1.0); EOS # 0.1 10^3/uL (0.0-0.50); EOS % 0.5 % (0.0-3.0); HEMATOCRIT 45.6 % (36.0-47.0); HEMOGLOBIN 15.8 g/dl (12.0-15.5); LYMPH # 2.2 10^3/uL (1.5-4.5); LYMPH % 13.4 % (24.0-44.0); MEAN CORPUSCULAR HEMOGLOBIN 31.3 pg (27.0-33.0); MEAN CORPUSCULAR HGB CONC 34.6 g/dl (32.0-36.5); MEAN CORPUSCULAR VOLUME 90.3 fl (80.0-96.0); MONO # 0.7 10^3/uL (0.0-0.8); MONO % 4.4 % (0.0-5.0); NEUTROPHILS % 80.8 % (36.0-66.0); PLATELET COUNT, AUTOMATED 315 10^3/uL (150-450); RED BLOOD COUNT 5.05 10^6/uL (4.00-5.40); WHITE BLOOD COUNT 16.1 10^3/uL (4.0-10.0)
[2018-06-03 18:05] LABS: ACETAMINOPHEN LEVEL < 2.0 UG/ML (10.0-30.0); ALBUMIN 4.4 GM/DL (3.2-5.2); ALT/SGPT 14 U/L (12-78); BILIRUBIN,DIRECT 0.3 MG/DL (0.0-0.2); BILIRUBIN,TOTAL 0.7 MG/DL (0.2-1.0); BLOOD UREA NITROGEN 22 MG/DL (7-18); CALCIUM LEVEL 9.9 MG/DL (8.5-10.1); CARBON DIOXIDE LEVEL 23 MEQ/L (21-32); CHLORIDE LEVEL 110 MEQ/L (98-107); CPK CREATINE PHOSPHOKINASE 52 U/L (26-192); CREATININE FOR GFR 0.54 MG/DL (0.55-1.30); ETHYL ALCOHOL (ETHANOL) < 0.003 % (0.000-0.010); GLOMERULAR FILTRATION RATE > 60.0 (>51); GLUCOSE, FASTING 89 MG/DL (70-100); MB/CK RELATIVE INDEX 2.12 (< OR =4); POTASSIUM SERUM 3.6 MEQ/L (3.5-5.1); SALICYLATE LEVEL < 1.7 MG/DL (5.0-30.0); SODIUM LEVEL 146 MEQ/L (136-145); THYROID STIMULATING HORMONE 0.044 uIU/ML (0.358-3.740); TOTAL PROTEIN 7.4 GM/DL (6.4-8.2); TROPONIN I < 0.02 NG/ML (< 0.10)
[2018-06-03 20:12] LABS: AMPHETAMINES LEVEL URINE NEGATIVE (NEGATIVE); BARBITURATES URINE NEGATIVE (NEGATIVE); BENZODIAZEPINES URINE NEGATIVE (NEGATIVE); CANNABINOIDS URINE NEGATIVE (NEGATIVE); COCAINE METABOLITE URINE NEGATIVE (NEGATIVE); METHADONE URINE NEGATIVE (NEGATIVE); OPIATES URINE POSITIVE (NEGATIVE); PHENCYCLIDINE URINE NEGATIVE (NEGATIVE)
[2018-06-03] MEDS ORDERED: NS 1,000 ML IV ONE (20:15)
[2018-06-03 20:28] LABS: FREE THYROXINE INDEX 5.6 % (1.3-4.8); T UPTAKE 33 % (30-39); THYROXINE (T4) 16.9 UG/DL (4.5-12.0)
[2018-06-03 21:57] VITALS: BP 132/87
--- NOTE | 2018-06-04 21:12 | ECGEPIP ---
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
== END 2018-06-03 22:03 | disposition home or self-care (01) ==
LOC: M ED 15:47
DX: E86.0 Dehydration (principal); J45.909 Unspecified asthma, uncomplicated; K21.9 Gastro-esophageal reflux disease without esophagitis; M79.7 Fibromyalgia; G89.29 Other chronic pain; M54.9 Dorsalgia, unspecified; G43.909 Migraine, unspecified, not intractable, without status migrainosus; J30.2 Other seasonal allergic rhinitis; J01.90 Acute sinusitis, unspecified; Z86.19 Personal history of other infectious and parasitic diseases; Z79.899 Other long term (current) drug therapy; Z91.013 Allergy to seafood; Z88.2 Allergy status to sulfonamides; Z88.8 Allergy status to other drugs, medicaments and biological substances; Z91.041 Radiographic dye allergy status; Z88.0 Allergy status to penicillin; Z88.6 Allergy status to analgesic agent; Z88.5 Allergy status to narcotic agent; Z91.89 Other specified personal risk factors, not elsewhere classified; Z91.011 Allergy to milk products
CPT/HCPCS: 51701; 70450; 71045; 80048; 80076; 80307; 81001; 82140; 82550; 82553; 84436; 84443; 84479; 85025; 87040; 87086; 93005; 93041; 94760; 96360; 96361; 99285; G0480

== ENCOUNTER 2018-06-26 09:04 | Emergency (ER) | payer OTHER ==
[~2018-06-26] VITALS: Ht 172.7 cm; Wt 48.2 kg
[2018-06-26] MEDS ORDERED: PROP80TA (09:25)
[2018-06-26] MEDS ORDERED: ATOR80TA59 (09:25)
[2018-06-26] MEDS ORDERED: ARNU1INH (09:25)
[2018-06-26] MEDS ORDERED: PROC10TA4 (09:25)
[2018-06-26] MEDS ORDERED: LIDOCAINE 1% MDV 20ML VIAL As Ordered ONE (09:28)
[2018-06-26] MEDS ORDERED: LIDOCAINE 1% MDV 20ML VIAL SC ONE (09:30)
[2018-06-26 09:44] LABS: BASO # 0.1 10^3/uL (0.0-0.2); BASO % 1.1 % (0.0-1.0); EOS # 0.3 10^3/uL (0.0-0.50); EOS % 3.1 % (0.0-3.0); HEMOGLOBIN 14.2 g/dl (12.0-15.5); LYMPH # 2.1 10^3/uL (1.5-4.5); LYMPH % 25.3 % (24.0-44.0); MEAN CORPUSCULAR HEMOGLOBIN 30.6 pg (27.0-33.0); MEAN CORPUSCULAR VOLUME 92.7 fl (80.0-96.0); MONO # 0.5 10^3/uL (0.0-0.8); MONO % 5.4 % (0.0-5.0); NEUTROPHILS # 5.4 10^3/uL (1.8-7.7); NEUTROPHILS % 64.9 % (36.0-66.0); PLATELET COUNT, AUTOMATED 240 10^3/uL (150-450); RED BLOOD COUNT 4.64 10^6/uL (4.00-5.40); WHITE BLOOD COUNT 8.4 10^3/uL (4.0-10.0)
[2018-06-26] MEDS ORDERED: NS 500 ML IV ONE (09:45)
[2018-06-26 09:57] LABS: INR 0.92; PROTHROMBIN TIME 12.4 SECONDS (12.1-14.4)
[2018-06-26 09:58] LABS: PARTIAL THROMBOPLASTIN TIME 27.8 SECONDS (25.4-37.6)
[2018-06-26 10:06] LABS: BLOOD UREA NITROGEN 7 MG/DL (7-18); CALCIUM LEVEL 8.8 MG/DL (8.5-10.1); CARBON DIOXIDE LEVEL 26 MEQ/L (21-32); CHLORIDE LEVEL 106 MEQ/L (98-107); CK-MB VALUE MASS < 1.0 NG/ML (<3.6); CPK CREATINE PHOSPHOKINASE 66 U/L (26-192); CREATININE FOR GFR 0.64 MG/DL (0.55-1.30); FREE T4 1.38 NG/DL (0.76-1.46); GLOMERULAR FILTRATION RATE > 60.0 (>51); GLUCOSE, FASTING 98 MG/DL (70-100); MAGNESIUM LEVEL 1.8 MG/DL (1.8-2.4); MB/CK RELATIVE INDEX 1.52 (< OR =4); SODIUM LEVEL 140 MEQ/L (136-145); TROPONIN I < 0.02 NG/ML (< 0.10)
--- NOTE | 2018-06-26 10:26 | REP ---
CT Head without contrast HISTORY: Trauma COMPARISON: 06/03/2018 An area of decreased attenuation is present in the anterior left temporal lobe. There is dilatation of the overlying cortical sulci and body of the left lateral ventricle. This represents an old infarction. Areas of decreased attenuation are present in the periventricular white matter. This represents small-vessel ischemic disease. There is no intraparenchymal hemorrhage, acute infarct, mass or midline shift. The ventricular system and cortical sulci are dilated consistent with mild volume loss. A nadiya cisterna magna is present. There is no extra cerebral collection. A 12 mm calcification is present in the left parasellar suprasellar area. There is no fracture. The visualized sinuses are clear. IMPRESSION: 1. 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 2. Small vessel ischemic disease. 3. Mild volume loss. Electronically Signed by Saturnino Mccall MD 06/26/2018 10:17 A
--- NOTE | 2018-06-26 10:37 | REP ---
CT Lumbar Spine without contrast HISTORY: Trauma COMPARISON: None There is no disc bulge or herniation at the L1-2 through L3-4 levels. The nerves exit the neural foramina without compression. A diffuse disc bulge is present at the L4-5 level. There is hypertrophy of the ligamenta flava and posterior articulating facets. These findings produce minimal central canal stenosis. The L4 nerves exit the neural foramina without compression. A diffuse disc bulge is present at the L5 S1 level. There is minimal compression of the thecal sac. There is hypertrophy of the posterior to the facets. The L5 nerves exit the neural foramina without compression. The L4-5 intervertebral disc is decreased in height consistent with disc degeneration. There is no fracture or subluxation. IMPRESSION: Minimal central canal stenosis at the L4-5 level secondary to disc bulge, ligamentous and facet hypertrophy. Electronically Signed by Saturnino Mccall MD 06/26/2018 10:29 A
--- NOTE | 2018-06-26 10:44 | REP ---
CT thoracic spine without contrast. HISTORY: Trauma COMPARISON : None There is no acute fracture or subluxation. There is an old compression fracture of the T11 vertebral body with minimal height loss. There is no disc bulge or herniation. The spinal canal and neural foramina are patent. The intervertebral discs are normal in height. IMPRESSION: There is no acute fracture or subluxation. Electronically Signed by Saturnino Mccall MD 06/26/2018 10:37 A
--- NOTE | 2018-06-26 10:56 | REP ---
CT cervical spine without contrast HISTORY: Trauma COMPARISON: 10/01/2017 There is no acute fracture or subluxation. A disc bulge is present at the C3-4 level. Disc bulges with osteophyte formation are present at the C4-5 and C5-6 levels. There is minimal narrowing of the spinal canal. Uncinate process hypertrophy is present at the C4-5 and C5-6 levels. This produces minimal narrowing of the neural foramina. There is no other disc bulge or herniation. The remaining neural foramina are patent. The C5-6 intervertebral disc is decreased in height consistent with disc degeneration. IMPRESSION: 1. There is no acute fracture or subluxation. 2. There is cervical spondylosis at the C3-4 through C6-7 levels. Electronically Signed by Saturnino Mccall MD 06/26/2018 10:48 A
[2018-06-26 16:12] VITALS: BP 95/65
--- NOTE | 2018-06-27 07:52 | ECGEPIP ---
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
== END 2018-06-26 16:19 | disposition home or self-care (01) ==
LOC: M ED 09:04 → EDBD 09:04 → M ED 16:19
DX: S01.81XA Laceration without foreign body of other part of head, initial encounter (principal); W01.198A Fall on same level from slipping, tripping and stumbling with subsequent striking against other object, initial encounter; Y92.012 Bathroom of single-family (private) house as the place of occurrence of the external cause; R90.82 White matter disease, unspecified; J45.909 Unspecified asthma, uncomplicated; K21.9 Gastro-esophageal reflux disease without esophagitis; M79.7 Fibromyalgia; E07.9 Disorder of thyroid, unspecified; Z79.899 Other long term (current) drug therapy; Z88.1 Allergy status to other antibiotic agents; Z88.5 Allergy status to narcotic agent; Z88.8 Allergy status to other drugs, medicaments and biological substances; Z91.011 Allergy to milk products; Z91.013 Allergy to seafood

== ENCOUNTER → 2018-06-27 | Outpatient (CLI) | payer OTHER ==
[~2018-06-27] MED LIST changes: +ARNU1INH; +ATOR80TA59; +PROC10TA4; +PROP80TA
[2018-06-27 10:51] LABS: BASO # 0.1 10^3/uL (0.0-0.2); BASO % 0.6 % (0.0-1.0); EOS # 0.2 10^3/uL (0.0-0.50); EOS % 1.6 % (0.0-3.0); HEMATOCRIT 38.9 % (36.0-47.0); HEMOGLOBIN 13.2 g/dl (12.0-15.5); LYMPH # 1.8 10^3/uL (1.5-4.5); LYMPH % 12.5 % (24.0-44.0); MEAN CORPUSCULAR HEMOGLOBIN 31.1 pg (27.0-33.0); MEAN CORPUSCULAR HGB CONC 33.9 g/dl (32.0-36.5); MEAN CORPUSCULAR VOLUME 91.7 fl (80.0-96.0); MONO # 0.4 10^3/uL (0.0-0.8); MONO % 2.9 % (0.0-5.0); NEUTROPHILS % 82.1 % (36.0-66.0); PLATELET COUNT, AUTOMATED 202 10^3/uL (150-450); RED BLOOD COUNT 4.24 10^6/uL (4.00-5.40); WHITE BLOOD COUNT 14.7 10^3/uL (4.0-10.0)
[2018-06-27 11:39] LABS: BLOOD UREA NITROGEN 5 MG/DL (7-18); CARBON DIOXIDE LEVEL 26 MEQ/L (21-32); CHLORIDE LEVEL 107 MEQ/L (98-107); CREATININE FOR GFR 0.61 MG/DL (0.55-1.30); GLOMERULAR FILTRATION RATE > 60.0 (>51); GLUCOSE, FASTING 93 MG/DL (70-100); IRON (FE) 71 UG/DL (50-170); POTASSIUM SERUM 3.7 MEQ/L (3.5-5.1); SODIUM LEVEL 141 MEQ/L (136-145)
== END ==
LOC: M LAB 10:11
PROVIDERS: ATTEND Nurse Practitioner Family
DX: G25.3 Myoclonus (principal)

== ENCOUNTER → 2018-09-19 | Outpatient (CLI) | payer OTHER ==
[~2018-09-19] MED LIST changes: -/ESOM40CA OR; -/MOM400 PO; -/MOXI40TA OR; -/MOXI40TA PO; -/ONDA4TA OR; +AVEL1TAB2 OR; +AVEL1TAB2 PO; +MILK10SU PO; +NEXI1CAP3 OR; +ONDA-1 OR
[2018-09-19 08:27] LABS: BASO # 0.1 10^3/uL (0.0-0.2); BASO % 1.9 % (0.0-1.0); EOS # 0.2 10^3/uL (0.0-0.50); EOS % 2.9 % (0.0-3.0); HEMATOCRIT 39.1 % (36.0-47.0); HEMOGLOBIN 12.2 g/dl (12.0-15.5); LYMPH # 1.9 10^3/uL (1.5-4.5); LYMPH % 33.2 % (24.0-44.0); MEAN CORPUSCULAR HEMOGLOBIN 31.9 pg (27.0-33.0); MEAN CORPUSCULAR HGB CONC 31.2 g/dl (32.0-36.5); MEAN CORPUSCULAR VOLUME 102.1 fl (80.0-96.0); MONO # 0.5 10^3/uL (0.0-0.8); MONO % 7.8 % (0.0-5.0); NEUTROPHILS # 3.1 10^3/uL (1.8-7.7); PLATELET COUNT, AUTOMATED 184 10^3/uL (150-450); RED BLOOD COUNT 3.83 10^6/uL (4.00-5.40); WHITE BLOOD COUNT 5.8 10^3/uL (4.0-10.0)
[2018-09-19 09:06] LABS: ALBUMIN 3.2 GM/DL (3.2-5.2); ALT/SGPT 10 U/L (12-78); BILIRUBIN,TOTAL 0.4 MG/DL (0.2-1.0); BLOOD UREA NITROGEN 17 MG/DL (7-18); CALCIUM LEVEL 8.8 MG/DL (8.5-10.1); CARBON DIOXIDE LEVEL 30 MEQ/L (21-32); CHLORIDE LEVEL 108 MEQ/L (98-107); CHOLESTEROL LEVEL 144 MG/DL (<200); CHOLESTEROL RISK RATIO 2.618 (<5); CREATININE FOR GFR 0.49 MG/DL (0.55-1.30); FREE T3 2.9 PG/ML (2.2-4.0); FREE T4 1.15 NG/DL (0.76-1.46); GLOMERULAR FILTRATION RATE > 60.0 (>51); GLUCOSE, FASTING 67 MG/DL (70-100); HDL CHOLESTEROL 55 MG/DL (>40); LDL CHOLESTEROL 67 MG/DL (<100); NON-HDL-C 89 MG/DL; POTASSIUM SERUM 4.5 MEQ/L (3.5-5.1); SODIUM LEVEL 143 MEQ/L (136-145); THYROID STIMULATING HORMONE 0.209 uIU/ML (0.358-3.740); TOTAL PROTEIN 5.5 GM/DL (6.4-8.2); TRIGLYCERIDES LEVEL 110 MG/DL (<150)
[2018-09-19 10:20] LABS: TOTAL 25(OH) VITAMIN D 24.4 NG/ML (30.0-100.0)
== END ==
LOC: M LAB 07:32
PROVIDERS: ATTEND Nurse Practitioner Family
DX: K21.9 Gastro-esophageal reflux disease without esophagitis (principal); E55.9 Vitamin D deficiency, unspecified; E03.9 Hypothyroidism, unspecified; E78.49 Other hyperlipidemia

== ENCOUNTER 2018-10-05 12:56 | Emergency (ER) | payer OTHER ==
[2018-10-05] MEDS ORDERED: IPRATROPIUM 0.5MG/ALBUTEROL 2.5MG INH SOL UD 3ML (DUONEB)(J7620) NEB ONE (13:30)
--- NOTE | 2018-10-05 13:39 | REP ---
Clinical: Cough and shortness of breath . Comparison: 06/03/2018 Findings: The mediastinum and cardiac silhouette are stable and within normal limits for portable technique. The lung rizzo demonstrate chronic changes without acute consolidation, effusion, or pneumothorax. Skeletal structures are intact. Impression: No acute cardiopulmonary process appreciated. Electronically Signed by Ron Willett MD 10/05/2018 01:30 P
[2018-10-05 14:15] LABS: VENOUS BASE EXCESS -1.7 (-2.0-2.0); VENOUS HCO3 26.3 MEQ/L (23.0-27.0); VENOUS O2 SATURATION 86.2 % (60.0-80.0); VENOUS PARTIAL PRESSURE CO2 58.4 mmHg (38.0-50.0); VENOUS PARTIAL PRESSURE O2 58.8 mmHg (30.0-50.0); VENOUS PH 7.272 UNITS (7.330-7.430); VENOUS STANDARD HCO3 22.8 MEQ/L; VENOUS TOTAL CO2 28.1 MEQ/L (24.0-28.0)
[2018-10-05 14:21] LABS: HEMATOCRIT 43.8 % (36.0-47.0); MEAN CORPUSCULAR HEMOGLOBIN 31.7 pg (27.0-33.0); MEAN CORPUSCULAR VOLUME 99.3 fl (80.0-96.0); PLATELET COUNT, AUTOMATED 246 10^3/uL (150-450); RED BLOOD COUNT 4.41 10^6/uL (4.00-5.40)
[2018-10-05 14:51] LABS: ALBUMIN 3.3 GM/DL (3.2-5.2); ALT/SGPT 23 U/L (12-78); BILIRUBIN,TOTAL 0.3 MG/DL (0.2-1.0); BLOOD UREA NITROGEN 7 MG/DL (7-18); CALCIUM LEVEL 8.4 MG/DL (8.5-10.1); CARBON DIOXIDE LEVEL 28 MEQ/L (21-32); CHLORIDE LEVEL 108 MEQ/L (98-107); CREATININE FOR GFR 0.61 MG/DL (0.55-1.30); GLOMERULAR FILTRATION RATE > 60.0 (>51); GLUCOSE, FASTING 90 MG/DL (70-100); POTASSIUM SERUM 3.4 MEQ/L (3.5-5.1); SODIUM LEVEL 143 MEQ/L (136-145); TOTAL PROTEIN 6.8 GM/DL (6.4-8.2)
[2018-10-05 15:30] VITALS: BP 116/73
--- NOTE | 2018-10-05 19:22 | ECGEPIP ---
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
== END 2018-10-05 15:55 | disposition home or self-care (01) ==
LOC: EDBD 12:56 → M ED 12:56
DX: T17.928A Food in respiratory tract, part unspecified causing other injury, initial encounter (principal); X58.XXXA Exposure to other specified factors, initial encounter; Y92.89 Other specified places as the place of occurrence of the external cause; K21.9 Gastro-esophageal reflux disease without esophagitis; J45.909 Unspecified asthma, uncomplicated; M79.7 Fibromyalgia; M54.9 Dorsalgia, unspecified; G43.909 Migraine, unspecified, not intractable, without status migrainosus; E03.9 Hypothyroidism, unspecified; Z86.73 Personal history of transient ischemic attack (TIA), and cerebral infarction without residual deficits; Z91.041 Radiographic dye allergy status; Z88.0 Allergy status to penicillin; Z88.1 Allergy status to other antibiotic agents; Z88.2 Allergy status to sulfonamides; Z88.8 Allergy status to other drugs, medicaments and biological substances; Z88.5 Allergy status to narcotic agent; Z88.6 Allergy status to analgesic agent; Z88.4 Allergy status to anesthetic agent; Z91.011 Allergy to milk products; Z91.013 Allergy to seafood; Z91.048 Other nonmedicinal substance allergy status; Z79.899 Other long term (current) drug therapy; Z79.02 Long term (current) use of antithrombotics/antiplatelets

== ENCOUNTER → 2018-11-13 | Outpatient (CLI) | payer OTHER ==
--- NOTE | 2018-11-13 15:28 | NUR ---
Pt seen for swallow evaluation d/t recent downgrade in consistency to ground solids. Modified Barium Swallow Study to determine safest/least restrictive diet. Pt study was unremarkable for dysphagia. Study included trials of thin liquid (vis straw), puree, sandwich, canned fruit, saltine cracker and barium tablet (taken whole with thin liquid wash). Recommend: Regular solids and liquids. Meds whole with thin liquid wash. Recommend: Slow intake pace. Chew foods thoroughly. Alternate solids/liquids more frequently throughout meals. Addendum: 11/13/18 at 1531 by JOSE DAVIS [facility] Amended: Links added.
--- NOTE | 2018-11-13 20:37 | REP ---
COOKIE SWALLOW The procedure was performed under the direct supervision of Dr. Blevins. The procedure was performed with Poppy Galvez from speech pathology present. 5 ml aliquots of thin, pudding, mixed fruit, solid, soft food and a barium pill were administered. With thin consistency barium there is laryngeal penetration. The detailed report of this examination will be provided by speech pathology. 1 minute of fluoroscopy time was utilized for this procedure. Reviewed by TERA Smith 11/13/2018 02:54 P Electronically Signed by Vickey Blevins MD 11/13/2018 08:28 P
== END ==
LOC: M ST 13:01
PROVIDERS: ATTEND Family Medicine
DX: R13.12 Dysphagia, oropharyngeal phase (principal)

== ENCOUNTER 2018-12-02 13:40 | Outpatient (RCR) | payer OTHER | END 2018-12-04 | LOC: M ST 13:40 | PROVIDERS: ATTEND Family Medicine | DX: Z51.89 Encounter for other specified aftercare (principal); I63.50 Cerebral infarction due to unspecified occlusion or stenosis of unspecified cerebral artery ==

== ENCOUNTER 2019-01-02 14:15 | Outpatient (RCR) | payer OTHER | END 2019-01-04 | LOC: M PT 14:15 | PROVIDERS: ATTEND Family Medicine | DX: Z51.89 Encounter for other specified aftercare (principal); I63.50 Cerebral infarction due to unspecified occlusion or stenosis of unspecified cerebral artery ==

== ENCOUNTER 2019-01-09 13:45 | Emergency (ER) | payer OTHER ==
[~2019-01-09] VITALS: Ht 172.7 cm; Wt 52.1 kg
[2019-01-09] MEDS ORDERED: RANI1SYP PO (15:28)
--- NOTE | 2019-01-09 15:56 | REP ---
Clinical: Weakness . Comparison: 10/05/2018 . Technique: PA and lateral. Findings: The mediastinum and cardiac silhouette are normal. The lung rizzo are clear and without acute consolidation, effusion, or pneumothorax. The skeletal structures are intact and normal. Impression: 1. No acute cardiopulmonary process. Electronically Signed by Ron Willett MD 01/09/2019 03:47 P
[2019-01-09 17:03] LABS: BASO # 0.1 10^3/uL (0.0-0.2); BASO % 0.5 % (0.0-1.0); EOS % 0.2 % (0.0-3.0); HEMATOCRIT 43.8 % (36.0-47.0); HEMOGLOBIN 14.1 g/dl (12.0-15.5); LYMPH # 0.9 10^3/uL (1.5-5.0); LYMPH % 8.3 % (24.0-44.0); MEAN CORPUSCULAR HEMOGLOBIN 28.5 pg (27.0-33.0); MEAN CORPUSCULAR HGB CONC 32.2 g/dl (32.0-36.5); MEAN CORPUSCULAR VOLUME 88.5 fl (80.0-96.0); MONO # 0.5 10^3/uL (0.0-0.8); MONO % 4.6 % (0.0-5.0); NEUTROPHILS # 9.4 10^3/uL (1.5-8.5); PLATELET COUNT, AUTOMATED 196 10^3/uL (150-450); RED BLOOD COUNT 4.95 10^6/uL (4.00-5.40)
[2019-01-09 17:30] LABS: BLOOD UREA NITROGEN 14 MG/DL (7-18); CALCIUM LEVEL 9.2 MG/DL (8.5-10.1); CARBON DIOXIDE LEVEL 27 MEQ/L (21-32); CHLORIDE LEVEL 109 MEQ/L (98-107); CK-MB VALUE MASS < 1.0 NG/ML (<3.6); CPK CREATINE PHOSPHOKINASE 50 U/L (26-192); CREATININE FOR GFR 0.63 MG/DL (0.55-1.30); FREE T4 1.59 NG/DL (0.76-1.46); GLOMERULAR FILTRATION RATE > 60.0 (>51); GLUCOSE, FASTING 96 MG/DL (70-100); POTASSIUM SERUM 4.1 MEQ/L (3.5-5.1); SODIUM LEVEL 143 MEQ/L (136-145); THYROID STIMULATING HORMONE 0.015 uIU/ML (0.358-3.740); TROPONIN I < 0.02 NG/ML (< 0.10)
[2019-01-09 19:36] VITALS: BP 119/61
--- NOTE | 2019-01-10 07:10 | ECGEPIP ---
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
== END 2019-01-09 19:36 | disposition home or self-care (01) ==
LOC: M ED 13:45
DX: I69.998 Other sequelae following unspecified cerebrovascular disease (principal); R53.1 Weakness; R51 Headache; E05.90 Thyrotoxicosis, unspecified without thyrotoxic crisis or storm; J45.909 Unspecified asthma, uncomplicated; M54.9 Dorsalgia, unspecified; Z79.891 Long term (current) use of opiate analgesic; Z79.899 Other long term (current) drug therapy; Z91.041 Radiographic dye allergy status; Z91.011 Allergy to milk products; Z91.013 Allergy to seafood; Z91.048 Other nonmedicinal substance allergy status; Z88.0 Allergy status to penicillin; Z88.1 Allergy status to other antibiotic agents; Z88.2 Allergy status to sulfonamides; Z88.5 Allergy status to narcotic agent; Z88.8 Allergy status to other drugs, medicaments and biological substances; Z90.49 Acquired absence of other specified parts of digestive tract; Z87.01 Personal history of pneumonia (recurrent)

== ENCOUNTER 2019-01-27 14:15 | Outpatient (RCR) | payer OTHER ==
[~2019-01-27 14:15] MED LIST changes: +RANI1SYP PO
== END 2019-02-03 ==
LOC: M ST 14:15
PROVIDERS: ATTEND Family Medicine
DX: Z51.89 Encounter for other specified aftercare (principal); I63.50 Cerebral infarction due to unspecified occlusion or stenosis of unspecified cerebral artery

== ENCOUNTER → 2019-02-28 | Outpatient (CLI) | payer OTHER ==
[2019-02-28 07:57] LABS: BASO # 0.1 10^3/uL (0.0-0.2); EOS # 0.3 10^3/uL (0.0-0.5); EOS % 4.7 % (0.0-3.0); HEMATOCRIT 44.4 % (36.0-47.0); HEMOGLOBIN 14.3 g/dl (12.0-15.5); LYMPH # 2.1 10^3/uL (1.5-5.0); LYMPH % 35.8 % (24.0-44.0); MEAN CORPUSCULAR HEMOGLOBIN 28.3 pg (27.0-33.0); MEAN CORPUSCULAR HGB CONC 32.2 g/dl (32.0-36.5); MEAN CORPUSCULAR VOLUME 87.7 fl (80.0-96.0); MONO # 0.4 10^3/uL (0.0-0.8); MONO % 7.1 % (0.0-5.0); NEUTROPHILS # 2.9 10^3/uL (1.5-8.5); NEUTROPHILS % 51.1 % (36.0-66.0); PLATELET COUNT, AUTOMATED 208 10^3/uL (150-450); RED BLOOD COUNT 5.06 10^6/uL (4.00-5.40); WHITE BLOOD COUNT 5.8 10^3/uL (4.0-10.0)
[2019-02-28 08:08] LABS: INR 0.99; PROTHROMBIN TIME 12.8 SECONDS (11.8-14.0)
[2019-02-28 08:31] LABS: ALBUMIN 3.4 GM/DL (3.2-5.2); ALT/SGPT 15 U/L (12-78); BILIRUBIN,TOTAL 0.4 MG/DL (0.2-1.0); BLOOD UREA NITROGEN 11 MG/DL (7-18); CALCIUM LEVEL 9.5 MG/DL (8.5-10.1); CARBON DIOXIDE LEVEL 31 MEQ/L (21-32); CHLORIDE LEVEL 108 MEQ/L (98-107); CHOLESTEROL LEVEL 143 MG/DL (<200); CHOLESTEROL RISK RATIO 2.698 (<5); CREATININE FOR GFR 0.58 MG/DL (0.55-1.30); FREE T4 1.42 NG/DL (0.76-1.46); GLOMERULAR FILTRATION RATE > 60.0 (>51); GLUCOSE, FASTING 82 MG/DL (70-100); HDL CHOLESTEROL 53 MG/DL (>40); LDL CHOLESTEROL 64 MG/DL (<100); NON-HDL-C 90 MG/DL; POTASSIUM SERUM 3.9 MEQ/L (3.5-5.1); SODIUM LEVEL 145 MEQ/L (136-145); THYROID STIMULATING HORMONE 0.027 uIU/ML (0.358-3.740); TOTAL PROTEIN 6.4 GM/DL (6.4-8.2); TRIGLYCERIDES LEVEL 129 MG/DL (<150); VALPROIC ACID (DEPAKOTE) 60.8 UG/ML (50.0-100.0)
[2019-02-28 09:28] LABS: TOTAL 25(OH) VITAMIN D 105.1 NG/ML (30.0-100.0)
[2019-02-28 10:49] LABS: HEMOGLOBIN A1c 4.7 %
== END ==
LOC: M LAB 07:10
PROVIDERS: ATTEND Nurse Practitioner Family
DX: Z00.01 Encounter for general adult medical examination with abnormal findings (principal)

== ENCOUNTER 2019-03-03 13:22 | Outpatient (RCR) | payer OTHER | END 2019-03-06 | LOC: M PT 13:22 | PROVIDERS: ATTEND Family Medicine | DX: Z51.89 Encounter for other specified aftercare (principal); I63.89 Other cerebral infarction ==

== ENCOUNTER 2019-04-02 13:28 | Outpatient (RCR) | payer OTHER ==
[~2019-04-02 13:28] MED LIST changes: -ARNU1INH; +ARNU1INH INH; -ATOR80TA59; +ATOR80TA59 PO; -PROC10TA4; +PROC10TA4 PO
== END 2019-04-05 | disposition home or self-care (01) ==
LOC: M ST 13:28 → M PT 13:28
PROVIDERS: ATTEND Family Medicine
DX: Z51.89 Encounter for other specified aftercare (principal); I63.89 Other cerebral infarction

== ENCOUNTER 2019-04-08 17:48 | Inpatient (IN) | payer OTHER ==
[~2019-04-08] VITALS: Ht 172.7 cm; Wt 51.4 kg
--- NOTE | 2019-04-08 18:27 | REPVR ---
PROCEDURE INFORMATION: Exam: CT Head Without Contrast Exam date and time: 04/08/2019 5:59 PM Age: 58 years old Clinical history: Weakness, extremity; Left; Additional info: Possible CVA TECHNIQUE: Imaging protocol: Computed tomography of the head without contrast. Radiation optimization: All CT scans at this facility use at least one of these dose optimization techniques: automated exposure control; mA and/or kV adjustment per patient size (includes targeted exams where dose is matched to clinical indication); or iterative reconstruction. Other technique: STROKE PROTOCOL was implemented. COMPARISON: CT Head without contrast 06/26/2018 9:35 AM FINDINGS: Brain: Redemonstration of encephalomalacia in the left frontal and temporal lobes, with involvement of the left basal ganglia and left insula. Findings are suggestive of a remote infarct. Chronic small vessel ischemic changes in the bilateral periventricular white matter. Moderate diffuse cortical volume loss. No acute intracranial hemorrhage. No midline shift. Levon cisterna magna. Ventricles: Unchanged ex vacuo dilatation of the left lateral ventricle. Bones/joints: No acute fracture. Sinuses: Unremarkable as visualized. No acute sinusitis. Mastoid air cells: Visualized mastoid air cells are well aerated. Soft tissues: Unremarkable. IMPRESSION: No acute intracranial abnormality is identified. Early cerebral infarct may be occult on CT in the first 12 hours. ASSESSMENT: ASPECTS (Gretchen Stroke Program Early CT Score) is 10. Electronically signed by: Autumn Rodriguez On 04/08/2019 18:26:46 PM
[2019-04-08 19:03] LABS: HEMATOCRIT 44.9 % (36.0-47.0); HEMOGLOBIN 14.6 g/dl (12.0-15.5); MEAN CORPUSCULAR HEMOGLOBIN 28.5 pg (27.0-33.0); MEAN CORPUSCULAR HGB CONC 32.5 g/dl (32.0-36.5); MEAN CORPUSCULAR VOLUME 87.7 fl (80.0-96.0); PLATELET COUNT, AUTOMATED 197 10^3/uL (150-450); RED BLOOD COUNT 5.12 10^6/uL (4.00-5.40); WHITE BLOOD COUNT 16.5 10^3/uL (4.0-10.0)
[2019-04-08 19:14] LABS: INR 0.98; PROTHROMBIN TIME 12.6 SECONDS (11.8-14.0)
[2019-04-08 19:23] LABS: ALBUMIN 3.1 GM/DL (3.2-5.2); ALT/SGPT 13 U/L (12-78); BILIRUBIN,TOTAL 0.6 MG/DL (0.2-1.0); BLOOD UREA NITROGEN 10 MG/DL (7-18); CALCIUM LEVEL 9.5 MG/DL (8.5-10.1); CARBON DIOXIDE LEVEL 27 MEQ/L (21-32); CHLORIDE LEVEL 104 MEQ/L (98-107); GLOMERULAR FILTRATION RATE > 60.0 (>51); GLUCOSE, FASTING 106 MG/DL (70-100); POTASSIUM SERUM 3.9 MEQ/L (3.5-5.1); SODIUM LEVEL 140 MEQ/L (136-145); TOTAL PROTEIN 6.7 GM/DL (6.4-8.2)
[2019-04-08 20:02] LABS: CK-MB VALUE MASS < 1.0 NG/ML (<3.6); CPK CREATINE PHOSPHOKINASE 53 U/L (26-192); MB/CK RELATIVE INDEX 1.89 (< OR =4); TROPONIN I < 0.02 NG/ML (< 0.10); VALPROIC ACID (DEPAKOTE) 62.4 UG/ML (50.0-100.0)
--- NOTE | 2019-04-08 20:13 | REP ---
Clinical: Weakness . Comparison: 01/09/2019 . Findings: The mediastinum and cardiac silhouette are stable and within normal limits for portable technique. The lung rizzo demonstrate diffuse chronic interstitial changes without acute consolidation, effusion, or pneumothorax. Skeletal structures are intact. Impression: No acute cardiopulmonary process appreciated. Electronically Signed by Ron Willett MD 04/08/2019 08:05 P
[2019-04-08 20:43] LABS: BASOPHILS 1 % (0-1); LYMPHOCYTES 3 % (16-44); MONOCYTES 2 % (0-5); NEUTROPHILS 92 % (28-66); PLATELET ESTIMATE NORMAL (NORMAL)
[2019-04-08] MEDS: ATORVASTATIN 20 MG TAB PO SCH (21:00)
[2019-04-08] MEDS ORDERED: ISOVUE-370 76% 100ML VIAL (Q9967) As Ordered ONE (21:02)
[2019-04-08] MEDS ORDERED: TIZA2TAB4 PO (21:10)
[2019-04-08] MEDS ORDERED: VALP250S PO (21:10)
[2019-04-08] MEDS ORDERED: RANI75TA PO (21:10)
--- NOTE | 2019-04-08 22:09 | REPVR ---
PROCEDURE INFORMATION: Exam: CT Abdomen And Pelvis With Contrast Exam date and time: 04/08/2019 9:07 PM Age: 58 years old Clinical history: Abdominal pain; Additional info: Pyelonephritis TECHNIQUE: Imaging protocol: Computed tomography of the abdomen and pelvis with intravenous contrast. Radiation optimization: All CT scans at this facility use at least one of these dose optimization techniques: automated exposure control; mA and/or kV adjustment per patient size (includes targeted exams where dose is matched to clinical indication); or iterative reconstruction. Contrast material: ISOVUE 370; Contrast volume: 100 ml; Contrast route: IV; COMPARISON: CT ABD PELVIS WITH CONTRAST 11/25/2015 7:16 PM FINDINGS: Lungs: The visualized lung bases demonstrate mild dependent atelectasis. Mediastinum: Question mild wall thickening of the distal esophagus. Liver: Normal. No mass. Gallbladder and bile ducts: Cholecystectomy clips are again present. The common bile duct is again prominent in caliber, symmetric cholecystectomy. Pancreas: Normal. No ductal dilation. Spleen: Normal. No splenomegaly. Adrenals: Normal. No mass. Kidneys and ureters: The kidneys demonstrate some cortical atrophy. The left demonstrates cortical scarring. The nephrograms have a homogeneous appearance, and the kidneys appear otherwise unremarkable. Stomach and bowel: The unopacified small bowel is not significantly distended to suggest obstruction. The large bowel is grossly unremarkable in appearance. Appendix: The appendix appears normal. Intraperitoneal space: No free air or significant free fluid. Vasculature: The abdominal aorta is nonaneurysmal. Atherosclerotic vascular calcifications are again present. Lymph nodes: Unremarkable. No enlarged lymph nodes. Bladder: The urinary bladder is not distended, but appears mildly thickwalled. Reproductive: No gross adnexal abnormality is apparent, but ultrasound would be more appropriate in this regard. Bones/joints: Degenerative changes again involve the spine and hips. Soft tissues: Unremarkable. IMPRESSION: 1. Mildly thickwalled appearance of the urinary bladder, suggesting cystitis. 2. No CT evidence for pyelonephritis. 3. Question mild wall thickening of the distal esophagus. Correlate as to possible nonspecific esophagitis and consider dedicated evaluation. Electronically signed by: Wilfredo Doran On 04/08/2019 22:08:58 PM
[2019-04-08] MEDS ORDERED: cefTRIAXone SOD 1 GM in D5W MINI-BAG PLUS 50 ML IV ONE (22:30)
[2019-04-08 23:16] LABS: ABG BASE EXCESS 2.8 (-2.0-2.0); ABG HCO3 26.3 MEQ/L (22.0-26.0); ABG O2 SATURATION 96.7 % (95.0-99.0); ABG PARTIAL PRESSURE CO2 36.9 mmHg (35.0-45.0); ABG PARTIAL PRESSURE O2 84.2 mmHg (75.0-100.0); ABG STANDARD HCO3 26.9 MEQ/L (22.0-26.0); ABG TOTAL CO2 27.4 MEQ/L (22.0-29.0); ABG pH (ARTERIAL) 7.471 UNITS (7.350-7.450)
--- NOTE | 2019-04-08 23:51 | HPEPDOC ---
[facility] Medical History & Physical Date of Admission Apr 08, 2019 Date of Service: Apr 08, 2019 Primary Care Physician: A Other Provider Unknown Attending Physician: SCAR CARBONE MD History and Physical TIME OF SERVICE: 11:55 PM CHIEF COMPLAINT: Weakness HISTORY OF PRESENT ILLNESS: The patient was unable to provide any history; the history was obtained from the ER attending. This is a 59-year-old female who was brought to the hospital after a friend fo und her lying on the floor covered in urine. At the time of my exam she was unable to contribute much to the history was not sure where she was, the a time or the date. She did admit to feeling weak and thirsty. REVIEW OF SYSTEMS: Unable to obtain PAST MEDICAL/ SURGICAL HISTORY: History of CVAs Chronic Asthma. Dyslipidemia GERD Fibromyalgia. Chronic back pain Migraines. History of hiatal hernia. Hypothyroidism. Status post cholecystectomy Status post partial gastrectomy SOCIAL HISTORY: Per ER attending. The patient lives alone. Per chart review, she is not a smoker FAMILY HISTORY: Per chart review. Colon cancer ALLERGIES: Please see below. HOME MEDICATIONS: Please see below. PHYSICAL EXAMINATION: VITAL SIGNS: Please see below. GENERAL APPEARANCE: Slim built, does not appear toxic HEENT: Normocephalic, atraumatic. Mucous membranes dry. Sclera anicteric CARDIOVASCULAR: Regular rate and rhythm. No murmurs, rubs or gallops. There is no lower extremity edema LUNGS: She is not coughing. Her lungs are clear to auscultation bilaterally ABDOMEN:Bowel sounds are hypoactive. Abdomen is soft and nontender on palpation INTEGUMENT: She's not flushed or jaundice PSYCHIATRIC: Alert and oriented to person. Occasionally, her voice is very low. She is not speaking, other times she speaking and answering questions appropriately LABORATORY DATA: See below. IMAGING: CT head " IMPRESSION: No acute intracranial abnormality is identified. Early cerebral infarct may be occult on CT in the first 12 hours. " Chest x-ray "Impression: No acute cardiopulmonary process appreciated." CT abdomen pelvis "IMPRESSION: 1. Mildly thickwalled appearance of the urinary bladder, suggesting cystitis. 2. No CT evidence for pyelonephritis. 3. Question mild wall thickening of the distal esophagus. Correlate as to possible nonspecific esophagitis and consider dedicated evaluation." MICROBIOLOGY: Please see below. ASSESSMENT: Ms. Aguilar is a 59-year-old with a past medical history of CVAs, hypothyroidism, asthma, fibromyalgia, migraines, and chronic back pain who will be admitted for evaluation of altered mental status and management of sepsis secondary to cystitis. PLAN: 1.Altered Mental Status / Encephalopathy Cause to be determined Plan: admit to medical floor/frequent neuro checks/follow-up TSH, and ammonia / if her mental status doesn't improve the daytime team may consider MRI brain & or psych consult to rule out catatonia / hold Lyrica tramadol and tizanidine as these can cause sedation 2. Sepsis possibly secondary to Cystitis SIRS criteria include fever, tachycardia, leukocytosis CTA UA findings source is likely cystitis. She received IV fluids and antibiotics in the ED Plan: Follow up blood and urine culture. Continue with levofloxacin / Continue with IV fluids 3. Esophageal wall thickening? Plan: Swallow eval prior to starting diet / daytime team may consider barium swallow 4. History of CVAs / dyslipidemia Plan: Resume home meds 5. Chronic Asthma. Stable. Plan : Resume home meds 6. Hypothyroidism Plan resume home meds 7. Migraines. Plan resume home meds DVT prophylaxis with Lovenox. Disposition likely home versus placement after more than 2 midnight's stay Vital Signs Vital Signs Date Time Temp Pulse Resp B/P (MAP) Pulse Ox O2 Delivery O2 Flow Rate FiO2 04/08/19 20:26 99.5 04/08/19 18:56 101 16 134/84 (101) 97 Room Air Laboratory Data Labs 24H Laboratory Tests 2 04/08/19 18:37: Nucleated Red Blood Cells % (auto) 0.0, Neutrophils 92H, Band Neutrophils 2, Lymphocytes (Manual) 3L, Monocytes (Manual) 2, Basophils (Manual) 1, Red Blood Cell Morphology NORMAL, Platelet Estimate NORMAL, Prothrombin Time 12.6, Prothromb Time International Ratio 0.98, Anion Gap 9, Glomerular Filtration Rate > 60.0, Calcium Level 9.5, Total Bilirubin 0.6, Aspartate Amino Transf (AST/SGOT) 16, Alanine Aminotransferase (ALT/SGPT) 13, Alkaline Phosphatase 102, Total Creatine Kinase 53, Creatine Kinase MB < 1.0, Creatine Kinase MB Relative Index 1.89, Troponin I < 0.02, Total Protein 6.7, Albumin 3.1L, Albumin/Globulin Ratio 0.86L, Valproic Acid (Depakene) Level 62.4 04/08/19 18:46: Lactic Acid Level 1.7 04/08/19 19:42: Urine Color YELLOW, Urine Appearance HAZY, Urine pH 7.0, Urine Specific [place] 1.011, Urine Protein NEGATIVE, Urine Glucose (UA) NEGATIVE, Urine Ketones TRACEH , Urine Blood NEGATIVE, Urine Nitrite POSITIVEH, Urine Bilirubin NEGATIVE, Urine Urobilinogen 0.2, Urine Leukocyte Esterase 2+H, Urine WBC (Auto) 70H, Urine RBC (Auto) 2, Urine Hyaline Casts (Auto) 0, Urine Bacteria (Auto) 1+H, Urine Squamous Epithelial Cells 0, Urine Sperm (Auto) 04/08/19 22:57: Blood Gas Bicarbonate Standard 26.9H, Arterial Blood pH 7.471H, Arterial Blood P artial Pressure CO2 36.9, Arterial Blood Partial Pressure O2 84.2, Arterial Blood Total CO2 27.4, Arterial Blood HCO3 26.3H, Arterial Blood Base Excess 2.8H, Arterial Blood Oxygen Saturation 96.7 CBC/BMP Laboratory Tests 04/08/19 18:37 Microbiology Microbiology 04/08/19 Blood Culture, Received Pending 04/08/19 Blood Culture, Received Pending 04/08/19 Urine Culture, Received Pending Home Medications Scheduled Atorvastatin Calcium (Atorvastatin Calcium) 80 Mg Tab, 80 MG PO QHS Clopidogrel Bisulfate (Clopidogrel) 75 Mg Tab, 75 MG PO DAILY Fluticasone Furoate (Arnuity Ellipta) 100 Mcg/Act Inh, 1 PUFF INH DAILY Levothyroxine Sodium (Levothyroxine Sodium) 75 Mcg Tab, 75 MCG PO DAILY Pregabalin (Lyrica) 200 Mg Cap, 200 MG PO TID Ranitidine HCl (Acid Precision Assembler Bench) 75 Mg Tablet, 75 MG PO BID Tizanidine HCl (Tizanidine HCl) 2 Mg Tablet, 4 MG PO TID Valproic Acid (As Sodium Salt) (Valproic Acid) 250 Mg/5 Ml Solution, 250 MG PO Q8H Scheduled PRN Fluticasone Propionate (Flonase Allergy Relief) 50 Mcg/Act Spr, 2 SPRAYS NA QHS PRN for ALLERGIES Loratadine (Loratadine) 10 Mg Tab, 10 MG PO DAILY PRN for ALLERGIES Prochlorperazine Maleate (Prochlorperazine Maleate) 10 Mg Tab, 10 MG PO BID PRN for NAUSEA OR VOMITING Rizatriptan Benzoate (Rizatriptan) 10 Mg Tab, 10 MG PO ASDIRECTED PRN for MIGRAINE Tramadol HCl (Tramadol HCl) 50 Mg Tab, 100 MG PO Q6H PRN for PAIN Allergies Coded Allergies: FISH (Verified Allergy, Severe, TONGUE SWELLING, 06/26/18) Sulfa (Sulfonamide Antibiotics) (Verified Allergy, Severe, dyspnea/hives/vomiting, 10/05/18) Cephalosporins (Verified Allergy, Intermediate, hives, 10/05/18) Contrast Media (Verified Allergy, Intermediate, HIVES, 10/05/18) Nitrate Analogues (Verified Allergy, Intermediate, HIVES, 10/05/18) Penicillins (Verified Allergy, Intermediate, HIVES, 10/05/18) clavulanic acid (Verified Allergy, Intermediate, hives, 10/05/18) metronidazole (Verified Allergy, Intermediate, HIVES, 10/05/18) nitrofurantoin (Verified Allergy, Intermediate, HIVES, 10/05/18) TAPE (Verified Allergy, Unknown, 06/26/18) chlorhexidine (Verified Allergy, Unknown, UNKNOWN TO PATIENT, 10/05/18) ibuprofen (Verified Allergy, Unknown, UNKNOWN TO PATIENT, 10/05/18) morphine (Verified Allergy, Unknown, UNKNOWN TO PATIENT, 10/05/18) procaine (Verified Allergy, Unknown, UNKNOWN TO PATIENT, 10/05/18) Low Fat Milk (Verified Adverse Reaction, Mild, VOMITING, DIARRHEA, 06/26/18) Quinolones (Verified Adverse Reaction, Mild, GI upset, 10/05/18) clarithromycin (Verified Adverse Reaction, Mild, GI upset, 10/05/18) milk (Verified Adverse Reaction, Mild, vomiting/diarrhea, 10/05/18) A-FIB/CHADSVASC A-FIB History Current/History of A-Fib/PAF?: No Current PO Anticoag Therapy: SCAR Holland MD Apr 08, 2019 23:50
[2019-04-09 00:35] VITALS: BP 117/77
[2019-04-09] MEDS ORDERED: RIZATRIPTAN BENZOATE 10 MG TAB PO PRN (05:00)
[2019-04-09] MEDS ORDERED: FLUTICASONE PROP 0.05% NASAL SPRAY 16 GM (FLONASE) PRN (05:00)
[2019-04-09] MEDS ORDERED: PROCHLORPERAZINE 5 MG TAB (S0183) PO PRN (05:00)
[2019-04-09] MEDS ORDERED: LORATADINE 10 MG TAB PO PRN (05:00)
[2019-04-09] MEDS: D5W/0.9% SODIUM CHLORIDE 1,000 ML IV SCH (05:34)
[2019-04-09] MEDS: VALPROIC ACID 250 MG CAP PO SCH ×3 (05:53→21:50)
[2019-04-09 06:00] VITALS: BP 113/73
[2019-04-09 07:00] LABS: HEMATOCRIT 41.4 % (36.0-47.0); HEMOGLOBIN 13.6 g/dl (12.0-15.5); MEAN CORPUSCULAR HEMOGLOBIN 29.2 pg (27.0-33.0); MEAN CORPUSCULAR HGB CONC 32.9 g/dl (32.0-36.5); MEAN CORPUSCULAR VOLUME 88.8 fl (80.0-96.0); PLATELET COUNT, AUTOMATED 174 10^3/uL (150-450); RED BLOOD COUNT 4.66 10^6/uL (4.00-5.40); WHITE BLOOD COUNT 13.8 10^3/uL (4.0-10.0)
[2019-04-09 07:19] LABS: BLOOD UREA NITROGEN 13 MG/DL (7-18); CALCIUM LEVEL 8.8 MG/DL (8.5-10.1); CARBON DIOXIDE LEVEL 25 MEQ/L (21-32); CHLORIDE LEVEL 108 MEQ/L (98-107); CREATININE FOR GFR 0.52 MG/DL (0.55-1.30); GLOMERULAR FILTRATION RATE > 60.0 (>51); GLUCOSE, FASTING 90 MG/DL (70-100); POTASSIUM SERUM 3.8 MEQ/L (3.5-5.1); SODIUM LEVEL 141 MEQ/L (136-145); THYROID STIMULATING HORMONE 0.018 uIU/ML (0.358-3.740)
[2019-04-09] MEDS: CLOPIDOGREL 75 MG TAB PO SCH (08:20)
[2019-04-09] MEDS: LEVOTHYROXINE 75MCG TABLET (0.075MG) PO SCH (08:20)
[2019-04-09] MEDS: ENOXAPARIN 40 MG/0.4 ML SYRINGE (J1650) SC SCH (08:20)
[2019-04-09] MEDS ORDERED: LevoFLOXacin IV 500 MG in IV 1 EA IV ONE (09:00)
[2019-04-09 14:00] VITALS: BP 117/88
--- NOTE | 2019-04-09 15:37 | ECGEPIP ---
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
[2019-04-09] MEDS: ATORVASTATIN 20 MG TAB PO SCH (20:00)
[2019-04-09] MEDS: LevoFLOXacin IV 750 MG in IV 1 EA IV SCH (20:00)
--- NOTE | 2019-04-09 20:12 | IPNPDOC ---
Date Seen The patient was seen on 04/09/19. Progress Note SUBJECTIVE: 59-year-old female with past medical history of CVA, hypothyroidism, fibromyalgia, was admitted for altered mental status and UTI. Patient continues to be confused, has difficulty with finding words, unsure if baseline or acute. Patient without any complaints, denies short of breath, chest pain, nausea, vomiting, abdominal pain or diarrhea. PHYSICAL EXAMINATION: VITAL SIGNS: Please see below. GENERAL: No distress HEENT: Normocephalic, atraumatic, moist mucous membranes NECK: Supple CARDIOVASCULAR EXAMINATION: S1, S2, no murmurs RESPIRATORY EXAMINATION: Clear to auscultation, no wheezing ABDOMINAL EXAMINATION: Soft, nontender, nondistended, positive bowel sounds EXTREMITIES: Range of motion intact SKIN: No rash NEUROLOGICAL EXAMINATION: no focal deficits PSYCHIATRIC EXAMINATION: Calm and cooperative LABORATORY DATA, IMAGING STUDIES, MICROBIOLOGY: Please see below. 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 PROBLEMS: 1. Altered mental status: Unsure if acute or baseline, possibly due to UTI, patient with difficulty with word finding, MRI ordered. 2. UTI:. Levaquin. 3. CVA: Continue Plavix and statin. 4. Hypothyroidism: Continue levothyroxine DVT prophylaxis: Lovenox. GI prophylaxis: Not needed VS, [facility]&O Vital Signs Date Time Temp Pulse Resp B/P (MAP) Pulse Ox O2 Delivery O2 Flow Rate FiO2 04/09/19 14:00 98.2 98 26 117/88 (98) 98 Room Air I&O- Last 24 Hours up to 6 AM 04/09/19 06:00 Intake Total 70 ml Output Total 100 ml Balance -30 ml Laboratory Data 24H LABS Laboratory Tests 2 04/08/19 22:57: Blood Gas Bicarbonate Standard 26.9H, Arterial Blood pH 7.471H, Arterial Blood Partial Pressure CO2 36.9, Arterial Blood Partial Pressure O2 84.2, Arterial Blood Total CO2 27.4, Arterial Blood HCO3 26.3H, Arterial Blood Base Excess 2.8H, Arterial Blood Oxygen Saturation 96.7 04/09/19 06:33: Nucleated Red Blood Cells % (auto) 0.0, Anion Gap 8, Glomerular Filtration Rate > 60.0, Calcium Level 8.8, Thyroid Stimulating Hormone (TSH) 0.018L CBC/BMP Laboratory Tests 04/09/19 06:33 Microbiology Microbiology 04/08/19 Blood Culture, Received Pending 04/08/19 Blood Culture, Received Pending 04/08/19 Urine Culture, Received Pending KAMALJIT ISIDRO MD Apr 09, 2019 20:12
[2019-04-09] MEDS: ACETAMINOPHEN TAB 650MG DOSE (2X325MG) PO PRN (21:51)
[2019-04-09 22:00] VITALS: BP 130/81
[2019-04-10] MEDS ORDERED: SIMETHICONE 80 MG CHEW TAB PO PRN (02:45)
[2019-04-10] MEDS: D5W/0.9% SODIUM CHLORIDE 1,000 ML IV SCH (05:20)
[2019-04-10] MEDS: VALPROIC ACID 250 MG CAP PO SCH ×3 (05:20→22:39)
[2019-04-10 06:00] VITALS: BP 117/76
[2019-04-10 06:33] LABS: ALBUMIN 2.5 GM/DL (3.2-5.2); ALT/SGPT 9 U/L (12-78); BILIRUBIN,TOTAL 0.5 MG/DL (0.2-1.0); BLOOD UREA NITROGEN 16 MG/DL (7-18); CALCIUM LEVEL 8.5 MG/DL (8.5-10.1); CARBON DIOXIDE LEVEL 25 MEQ/L (21-32); CHLORIDE LEVEL 113 MEQ/L (98-107); CREATININE FOR GFR 0.46 MG/DL (0.55-1.30); GLOMERULAR FILTRATION RATE > 60.0 (>51); GLUCOSE, FASTING 102 MG/DL (70-100); MAGNESIUM LEVEL 1.9 MG/DL (1.8-2.4); PHOSPHORUS LEVEL 2.8 MG/DL (2.5-4.9); POTASSIUM SERUM 3.5 MEQ/L (3.5-5.1); SODIUM LEVEL 144 MEQ/L (136-145); TOTAL PROTEIN 5.6 GM/DL (6.4-8.2)
[2019-04-10] MEDS: ACETAMINOPHEN TAB 650MG DOSE (2X325MG) PO PRN (07:11)
[2019-04-10] MEDS: LEVOTHYROXINE 75MCG TABLET (0.075MG) PO SCH (08:17)
[2019-04-10] MEDS: CLOPIDOGREL 75 MG TAB PO SCH (08:17)
[2019-04-10] MEDS: ENOXAPARIN 40 MG/0.4 ML SYRINGE (J1650) SC SCH (08:19)
[2019-04-10] MEDS ORDERED: FLUBLOK(EGG FREE)(QUAD)INFLUENZA VACC 0.5ML SYRINGE (90682)18YRS&OLDER IM ONE (09:00)
[2019-04-10] MEDS ORDERED: ARNUITY ELLIPTA 100 MCG INH SCH (09:00)
[2019-04-10] MEDS ORDERED: POTASSIUM CHLORIDE 10 MEQ SR TABLET PO ONE (09:00)
[2019-04-10 14:00] VITALS: BP 120/84
--- NOTE | 2019-04-10 18:18 | IPNPDOC ---
Date Seen The patient was seen on 04/10/19. Progress Note SUBJECTIVE: 59-year-old female with past medical history of CVA, hypothyroidism, fibromyalgia, was admitted for altered mental status and UTI. Patient continues to be confused, has difficulty with finding words, unsure if baseline or acute. Patient without any complaints, denies short of breath, chest pain, nausea, vomiting, abdominal pain or diarrhea. 04/10/2019 Patient comfortable, remains confused, no changes from yesterday, without complaints. PHYSICAL EXAMINATION: VITAL SIGNS: Please see below. GENERAL: No distress HEENT: Normocephalic, atraumatic, moist mucous membranes NECK: Supple CARDIOVASCULAR EXAMINATION: S1, S2, no murmurs RESPIRATORY EXAMINATION: Clear to auscultation, no wheezing ABDOMINAL EXAMINATION: Soft, nontender, nondistended, positive bowel sounds EXTREMITIES: Range of motion intact SKIN: No rash NEUROLOGICAL EXAMINATION: no focal deficits PSYCHIATRIC EXAMINATION: Calm and cooperative LABORATORY DATA, IMAGING STUDIES, MICROBIOLOGY: Please see below. DVT prophylaxis ordered?: Yes ASSESSMENT AND PLAN: 59-year-old female with past medical history of CVA, h ypothyroidism and pharmacology admitted for altered mental status and UTI. PROBLEMS: 1. Altered mental status: Possibly patient's baseline, patient with difficulty with word finding, MRI ordered. 2. UTI: Continue Levaquin. 3. CVA: Continue Plavix and statin. 4. Hypothyroidism: Continue levothyroxine DVT prophylaxis: Lovenox. GI prophylaxis: Not needed VS, I&O, 24H, Fishbone Vital Signs/I&O Vital Signs Date Time Temp Pulse Resp B/P (MAP) Pulse Ox O2 Delivery O2 Flow Rate FiO2 04/10/19 14:00 97.9 90 18 120/84 (96) 97 Room Air I&O- Last 24 Hours up to 6 AM 04/10/19 06:00 Intake Total 1240 ml Output Total 175 ml Balance 1065 ml Laboratory Data 24H LABS Laboratory Tests 2 04/10/19 05:48: Anion Gap 6L, Glomerular Filtration Rate > 60.0, Calcium Level 8.5, Phosphorus Level 2.8, Magnesium Level 1.9, Total Bilirubin 0.5, Aspartate Amino Transf (AST/SGOT) 11, Alanine Aminotransferase (ALT/SGPT) 9L, Alkaline Phosphatase 83, Total Protein 5.6L, Albumin 2.5L, Albumin/Globulin Ratio 0.81L CBC/BMP Laboratory Tests 04/10/19 05:48 Microbiology Microbiology 04/08/19 Blood Culture - Preliminary, Resulted No growth after 24 hours . All specim... 04/08/19 Blood Culture - Preliminary, Resulted No growth after 24 hours . All specim... 04/08/19 Urine Culture - Final, Complete Escherichia Coli KAMALJIT ISIDRO MD Apr 10, 2019 18:18
[2019-04-10] MEDS: LevoFLOXacin IV 750 MG in IV 1 EA IV SCH (20:08)
[2019-04-10] MEDS: ATORVASTATIN 20 MG TAB PO SCH (20:08)
[2019-04-10 22:00] VITALS: BP 153/57
[2019-04-11] MEDS: VALPROATE SOD INJ 250 MG in D5W 50 ML IV SCH ×2 (01:40→10:56)
[2019-04-11] MEDS: D5W/0.9% SODIUM CHLORIDE 1,000 ML IV SCH (05:00)
[2019-04-11 06:00] VITALS: BP 120/86
[2019-04-11] MEDS ORDERED: LEVOTHYROXINE 50MCG TABLET (0.05MG) PO SCH (06:00)
[2019-04-11] MEDS: CLOPIDOGREL 75 MG TAB PO SCH (10:53)
[2019-04-11] MEDS: ENOXAPARIN 40 MG/0.4 ML SYRINGE (J1650) SC SCH (10:54)
[2019-04-11] MEDS ORDERED: LEVA750T7 PO (11:43)
--- NOTE | 2019-04-11 18:45 | DS.PDOC ---
Discharge Summary General Date of Admission Apr 08, 2019 at 23:49 Date of Discharge 04/11/2019 Attending Physician: KAMALJIT ISIDRO MD Discharge Summary PROCEDURES PERFORMED DURING STAY: None. ADMITTING DIAGNOSES: 1. UTI. DISCHARGE DIAGNOSES: 1. UTI. COMPLICATIONS/CHIEF COMPLAINT: Cystitis. HISTORY OF PRESENT ILLNESS: 59-year-old female was admitted for questionable altered mental status and UTI. It appears the patient's mentation is at baseline, urine culture grew Escherichia coli sensitive to Levaquin. Patient w ithout any complaints, cognitively and physically at baseline, will be discharged with near 24-hour home care provided by her friend. Patient will be discharged on Levaquin to complete a total of 5 days of antibiotics. Patient is clinically and hemodynamically stable for discharge and outpatient follow-up. HOSPITAL COURSE: As above. DISCHARGE MEDICATIONS: Please see below. ALLERGIES: Please see below. PHYSICAL EXAMINATION: VITAL SIGNS: Please see below. GENERAL: No distress HEENT: Normocephalic, atraumatic, moist mucous membranes NECK: Supple CARDIOVASCULAR EXAMINATION: S1, S2, no murmurs RESPIRATORY EXAMINATION: Clear to auscultation, no wheezing ABDOMINAL EXAMINATION: Soft, nontender, nondistended, positive bowel sounds EXTREMITIES: Range of motion intact SKIN: No rash NEUROLOGICAL EXAMINATION: no focal deficits PSYCHIATRIC EXAMINATION: Calm and cooperative LABORATORY DATA: Please see below. PROGNOSIS: Guarded ACTIVITY: As tolerated. DIET: Mechanical soft, as advised by outpatient speech therapist DISCHARGE PLAN: Patient will follow with PCP in 1-2 weeks DISPOSITION: 01 Home, Self-Care. DISCHARGE INSTRUCTIONS: 1. As above. DISCHARGE CONDITION: Stable. TIME SPENT ON DISCHARGE: Greater than 34 minutes. Vital Signs/I&Os Vital Signs Date Time Temp Pulse Resp B/P (MAP) Pulse Ox O2 Delivery O2 Flow Rate FiO2 04/11/19 06:00 98.0 83 16 120/86 (97) 99 Room Air I&O- Last 24 Hours up to 6 AM 04/11/19 06:00 Intake Total 1122.5 ml Output Total 0 ml Balance 1122.5 ml Microbiology Microbiology 04/08/19 Blood Culture - Preliminary, Resulted No Growth after 48 hours. All Specime... 04/08/19 Blood Culture - Preliminary, Resulted No Growth after 48 hours. All Specime... 04/08/19 Urine Culture - Final, Complete Escherichia Coli Discharge Medications Scheduled Atorvastatin Calcium (Atorvastatin Calcium) 80 Mg Tab, 80 MG PO QHS, (Reported) Clopidogrel Bisulfate (Clopidogrel) 75 Mg Tab, 75 MG PO DAILY, (Reported) Fluticasone Furoate (Arnuity Ellipta) 100 Mcg/Act Inh, 1 PUFF INH DAILY, ( Reported) Levofloxacin (Levaquin) 750 Mg Tablet, 1 TAB PO DAILY Levothyroxine Sodium (Levothyroxine Sodium) 75 Mcg Tab, 75 MCG PO DAILY, (Reported) Pregabalin (Lyrica) 200 Mg Cap, 200 MG PO TID, (Reported) Ranitidine HCl (Acid Stock Unloader) 75 Mg Tablet, 75 MG PO BID, (Reported) Tizanidine HCl (Tizanidine HCl) 2 Mg Tablet, 4 MG PO TID, (Reported) Valproic Acid (As Sodium Salt) (Valproic Acid) 250 Mg/5 Ml Solution, 250 MG PO Q8H, (Reported) Scheduled PRN Fluticasone Propionate (Flonase Allergy Relief) 50 Mcg/Act Spr, 2 SPRAYS NA QHS PRN for ALLERGIES, (Reported) Loratadine (Loratadine) 10 Mg Tab, 10 MG PO DAILY PRN for ALLERGIES, (Reported) Prochlorperazine Maleate (Prochlorperazine Maleate) 10 Mg Tab, 10 MG PO BID PRN for NAUSEA OR VOMITING, (Reported) Rizatriptan Benzoate (Rizatriptan) 10 Mg Tab, 10 MG PO ASDIRECTED PRN for MIGRAINE, (Reported) Tramadol HCl (Tramadol HCl) 50 Mg Tab, 100 MG PO Q6H PRN for PAIN, (Reported) Allergies Coded Allergies: FISH (Verified Allergy, Severe, TONGUE SWELLING, 06/26/18) Sulfa (Sulfonamide Antibiotics) (Verified Allergy, Severe, dyspnea/hives/vomiting, 10/05/18) Cephalosporins (Verified Allergy, Intermediate, hives, 10/05/18) Contrast Media (Verified Allergy, Intermediate, HIVES, 10/05/18) Nitrate Analogues (Verified Allergy, Intermediate, HIVES, 10/05/18) Penicillins (Verified Allergy, Intermediate, HIVES, 10/05/18) clavulanic acid (Verified Allergy, Intermediate, hives, 10/05/18) metronidazole (Verified Allergy, Intermediate, HIVES, 10/05/18) nitrofurantoin (Verified Allergy, Intermediate, HIVES, 10/05/18) TAPE (Verified Allergy, Unknown, 06/26/18) chlorhexidine (Verified Allergy, Unknown, UNKNOWN TO PATIENT, 10/05/18) ibuprofen (Verified Allergy, Unknown, UNKNOWN TO PATIENT, 10/05/18) morphine (Verified Allergy, Unknown, UNKNOWN TO PATIENT, 10/05/18) procaine (Verified Allergy, Unknown, UNKNOWN TO PATIENT, 10/05/18) Low Fat Milk (Verified Adverse Reaction, Mild, VOMITING, DIARRHEA, 06/26/18) Quinolones (Verified Adverse Reaction, Mild, GI upset, 10/05/18) clarithromycin (Verified Adverse Reaction, Mild, GI upset, 10/05/18) milk (Verified Adverse Reaction, Mild, vomiting/diarrhea, 10/05/18) KAMALJIT ISIDRO MD Apr 11, 2019 18:45
== END 2019-04-11 13:16 | disposition home or self-care (01) | DRG 463 ==
LOC: EDBD 17:48 → M ED 17:48 → M ED INP 23:49 → M MSPAV 04-09 00:30
PROVIDERS: ADMIT Internal Medicine; ATTEND Internal Medicine
DX: N39.0 Urinary tract infection, site not specified (principal); G93.40 Encephalopathy, unspecified; J45.909 Unspecified asthma, uncomplicated; E78.5 Hyperlipidemia, unspecified; K21.9 Gastro-esophageal reflux disease without esophagitis; K44.9 Diaphragmatic hernia without obstruction or gangrene; Z86.73 Personal history of transient ischemic attack (TIA), and cerebral infarction without residual deficits; M79.7 Fibromyalgia; E03.9 Hypothyroidism, unspecified; G43.909 Migraine, unspecified, not intractable, without status migrainosus; Z90.49 Acquired absence of other specified parts of digestive tract; B96.20 Unspecified Escherichia coli [E. coli] as the cause of diseases classified elsewhere; N30.90 Cystitis, unspecified without hematuria

== ENCOUNTER 2019-04-24 13:00 | Outpatient (RCR) | payer OTHER ==
[~2019-04-24 13:00] MED LIST changes: +LEVA750T7 PO; +RANI75TA PO; +TIZA2TAB4 PO; +VALP250S PO
== END 2019-05-06 ==
LOC: M ST 13:00
PROVIDERS: ATTEND Family Medicine
DX: Z51.89 Encounter for other specified aftercare (principal); I63.89 Other cerebral infarction

== ENCOUNTER 2019-06-06 12:22 | Inpatient (IN) | payer OTHER ==
[~2019-06-06] VITALS: Ht 172.7 cm; Wt 49.5 kg
[~2019-06-06 12:22] MED LIST changes: +SUCR1ORA PO; -SUCR1SUS PO
[2019-06-06 13:30] LABS: BASO % 0.5 % (0.0-1.0); EOS # 0.2 10^3/uL (0.0-0.5); HEMATOCRIT 47.4 % (36.0-47.0); HEMOGLOBIN 15.2 g/dl (12.0-15.5); LYMPH # 1.5 10^3/uL (1.5-5.0); MEAN CORPUSCULAR HEMOGLOBIN 30.1 pg (27.0-33.0); MEAN CORPUSCULAR HGB CONC 32.1 g/dl (32.0-36.5); MEAN CORPUSCULAR VOLUME 93.9 fl (80.0-96.0); MONO # 0.7 10^3/uL (0.0-0.8); MONO % 9.5 % (0.0-5.0); NEUTROPHILS # 5.1 10^3/uL (1.5-8.5); NEUTROPHILS % 67.7 % (36.0-66.0); PLATELET COUNT, AUTOMATED 163 10^3/uL (150-450); RED BLOOD COUNT 5.05 10^6/uL (4.00-5.40); WHITE BLOOD COUNT 7.5 10^3/uL (4.0-10.0)
[2019-06-06] MEDS ORDERED: NS 1,000 ML IV ONE (13:30)
--- NOTE | 2019-06-06 13:33 | ECGEPIP ---
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
--- NOTE | 2019-06-06 13:59 | REPVR ---
PROCEDURE INFORMATION: Exam: CT Head Without Contrast Exam date and time: 06/06/2019 1:41 PM Age: 59 years old Clinical indication: Weakness, extremity TECHNIQUE: Imaging protocol: Computed tomography of the head without contrast. Radiation optimization: All CT scans at this facility use at least one of these dose optimization techniques: automated exposure control; mA and/or kV adjustment per patient size (includes targeted exams where dose is matched to clinical indication); or iterative reconstruction. COMPARISON: CT Head without contrast 04/08/2019 6:11 PM FINDINGS: Brain: There is low attenuation abnormality in the periventricular white matter, likely reflecting chronic microvascular ischemic disease. There is an old left MCA territory infarct. There is moderate cerebral atrophy. Ventricles: There is mild ventriculomegaly, similar to prior study. Bones/joints: Unremarkable. No acute fracture. Sinuses: Visualized sinuses are unremarkable. No fluid levels. Mastoid air cells: Visualized mastoid air cells are well aerated. Soft tissues: Unremarkable. Vasculature: There is moderate intracranial vascular calcification. IMPRESSION: 1. There is low attenuation abnormality in the periventricular white matter, likely reflecting chronic microvascular ischemic disease. If an acute infarct is clinically suspected, consider MRI with diffusion imaging. 2. There is an old left MCA territory infarct. Electronically signed by: Tian Long On 06/06/2019 14:01:06 PM
[2019-06-06 14:02] LABS: ALBUMIN 3.4 GM/DL (3.2-5.2); ALT/SGPT 10 U/L (12-78); BILIRUBIN,DIRECT 0.2 MG/DL (0.0-0.2); BILIRUBIN,TOTAL 0.5 MG/DL (0.2-1.0); BLOOD UREA NITROGEN 19 MG/DL (7-18); CALCIUM LEVEL 9.4 MG/DL (8.5-10.1); CARBON DIOXIDE LEVEL 30 MEQ/L (21-32); CHLORIDE LEVEL 106 MEQ/L (98-107); CK-MB VALUE MASS < 1.0 NG/ML (<3.6); CPK CREATINE PHOSPHOKINASE 57 U/L (26-192); CREATININE FOR GFR 0.53 MG/DL (0.55-1.30); GLOMERULAR FILTRATION RATE > 60.0 (>51); GLUCOSE, FASTING 81 MG/DL (70-100); MB/CK RELATIVE INDEX 1.75 (< OR =4); POTASSIUM SERUM 3.8 MEQ/L (3.5-5.1); SODIUM LEVEL 145 MEQ/L (136-145); TOTAL PROTEIN 6.2 GM/DL (6.4-8.2); TROPONIN I < 0.02 NG/ML (< 0.10)
[2019-06-06] MEDS ORDERED: ATOR40TA75 PO (14:17)
[2019-06-06] MEDS ORDERED: LEVO112T2 PO (14:17)
[2019-06-06] MEDS ORDERED: APAP325T4 PO (14:17)
[2019-06-06] MEDS ORDERED: PATIENT COMMENT (14:19)
--- NOTE | 2019-06-06 14:23 | REP ---
Portable chest, one freezing p.m., single AP view with the the patient sitting: Comparison is 04/08/2020. The lung rizzo are clear. The cardiac size is normal. The carlos, mediastinum, and skeletal structures are unremarkable. Impression: Negative portable chest. There is no interval change. Electronically Signed by Vickey Starr MD 06/06/2019 02:15 P
[2019-06-06] MEDS ORDERED: RIZATRIPTAN BENZOATE 10 MG TAB PO PRN (17:45)
[2019-06-06] MEDS ORDERED: LORATADINE 10 MG TAB PO PRN (17:45)
[2019-06-06] MEDS ORDERED: ACETAMINOPHEN 325 MG TAB PO PRN (17:45)
[2019-06-06] MEDS ORDERED: PROCHLORPERAZINE 5 MG TAB (S0183) PO PRN (17:45)
[2019-06-06] MEDS ORDERED: FLUTICASONE PROP 0.05% NASAL SPRAY 16 GM (FLONASE) PRN (17:45)
--- NOTE | 2019-06-06 17:51 | HPEPDOC ---
[facility] Medical History & Physical Date of Admission Jun 06, 2019 Date of Service: Jun 06, 2019 Attending Physician: KAMALJIT ISIDRO MD History and Physical CHIEF COMPLAINT: Sent over from PCPs office for failure to thrive HISTORY OF PRESENT ILLNESS: 59-year-old female with past medical history of m ultiple CVAs and hypothyroidism presents from PCPs office for fatigue and failure to thrive. Patient was admitted in April 2019 for UTI, has very low mobility at baseline, requires [id number] help, which is provided by her friend and neighbor. Patient has expressive aphasia and weakness secondary to her strokes. Patient seen in the ED, unable to relate to me why her PCP sent her here, has no complaint at this time, reports she is at her baseline. As per ED physician. Her PCP believe that she has very poor oral intake, has lost weight and appears more fatigued from her baseline. Workup in the ED shows possible UTI, otherwise within normal limits. Patient denies any short of breath, chest pain, nausea, vomiting, abdominal pain or diarrhea. 10 point review of system is negative except for above PAST MEDICAL HISTORY: 1. CVA. 2. Hypothyroidism. PAST SURGICAL HISTORY: 1. None. SOCIAL HISTORY: Denies smoking. Denies overuse. Denies drug use FAMILY HISTORY: Father had PA ALLERGIES: Please see below. HOME MEDICATIONS: Please see below. PHYSICAL EXAMINATION: VITAL SIGNS: Please see below. GENERAL: Frail HEENT: Normocephalic, atraumatic, dry mucous membranes NECK: Supple CARDIOVASCULAR EXAMINATION: S1, S2, no murmurs RESPIRATORY EXAMINATION: Scattered rhonchi, no wheezing ABDOMINAL EXAMINATION: Soft, nontender, nondistended, positive bowel sounds EXTREMITIES: Range of motion intact SKIN: No rash NEUROLOGICAL EXAMINATION: no focal deficits PSYCHIATRIC EXAMINATION: Calm and cooperative LABORATORY DATA: See below. IMAGING: CT head and chest x-ray negative for acute pathology MICROBIOLOGY: Please see below. ASSESSMENT: 59-year-old female with past medical history of CVA, hypothyroidism is being admitted for failure to thrive a UTI. PLAN: 1. UTI. Multiple allergies listed, has tolerated Levaquin in the past, continue Levaquin 750 mg daily, urine cultures pending. 2. Failure to thrive. Chronic, based on previous admission, PT/OT eval ordered, patient family services evaluation requested for possible placement. 3. CVA. Continue Plavix and statin, swallow eval ordered. 4. Hypothyroidism. Continue levothyroxine DVT prophylaxis: Heparin subcutaneous. GI prophylaxis: Not needed Vital Signs Vital Signs Date Time Temp Pulse Resp B/P (MAP) Pulse Ox O2 Delivery O2 Flow Rate FiO2 06/06/19 16:30 90 18 113/72 (86) 99 06/06/19 12:45 99.7 Laboratory Data Labs 24H Laboratory Tests 2 06/06/19 12:59: Immature Granulocyte % (Auto) 0.3, Neutrophils (%) (Auto) 67.7H, Lymphocytes (%) (Auto) 20.0L, Monocytes (%) (Auto) 9.5H, Eosinophils (%) (Auto) 2.0, Basophils (%) (Auto) 0.5, Neutrophils # (Auto) 5.1, Lymphocytes # (Auto) 1.5, Monocytes # (Auto) 0.7, Eosinophils # (Auto) 0.2, Basophils # (Auto) 0.0, Nucleated Red Blood Cells % (auto) 0.0, Anion Gap 9, Glomerular Filtration Rate > 60.0, Calcium Level 9.4, Total Bilirubin 0.5, Direct Bilirubin 0.2, Aspartate Amino Transf (AST/SGOT) 19, Alanine Aminotransferase (ALT/SGPT) 10L, Alkaline Phosphatase 95, Total Creatine Kinase 57, Creatine Kinase MB < 1.0, Creatine Kinase MB Relative Index 1.75, Troponin I < 0.02, Total Protein 6.2L, Albumin 3.4, Albumin/Globulin Ratio 1.21, Thyroid Stimulating Hormone (TSH) 0.010L 06/06/19 13:31: Bedside Glucose (Misc Panel) 86 06/06/19 15:45: Urine Color ANGIE, Urine Appearance HAZY, Urine pH 5.0, Urine Specific [place] 1.027, Urine Protein 1+H, Urine Glucose (UA) NEGATIVE, Urine Ketones TRACEH, Ur ine Blood NEGATIVE, Urine Nitrite NEGATIVE, Urine Bilirubin NEGATIVE, Urine Urobilinogen 2.0H, Urine Leukocyte Esterase 1+H, Urine WBC (Auto) 33H, Urine RBC (Auto) 7H, Urine Hyaline Casts (Auto) 0, Urine Bacteria (Auto) NEGATIVE, Urine Squamous Epithelial Cells 1, Urine Mucus (Auto) LARGE, Urine Sperm (Auto) CBC/BMP Laboratory Tests 06/06/19 12:59 Microbiology Microbiology 1/31/20 Urine Culture, Received Pending Home Medications Scheduled Atorvastatin Calcium (Atorvastatin Calcium) 40 Mg Tablet, 40 MG PO QHS Clopidogrel Bisulfate (Clopidogrel) 75 Mg Tab, 75 MG PO DAILY Fluticasone Furoate (Arnuity Ellipta) 100 Mcg/Act Inh, 1 PUFF INH DAILY Levothyroxine Sodium (Levothyroxine Sodium) 112 Mcg Tablet, 112 MCG PO DAILY Pregabalin (Lyrica) 200 Mg Cap, 200 MG PO TID Ranitidine HCl (Acid Microelectronics Engineer) 75 Mg Tablet, 75 MG PO BID Valproic Acid (As Sodium Salt) (Valproic Acid) 250 Mg/5 Ml Solution, 250 MG PO BID Scheduled PRN Acetaminophen (Acetaminophen) 325 Mg Tablet, 650 MG PO Q6H PRN for PAIN Fluticasone Propionate (Flonase Allergy Relief) 50 Mcg/Act Spr, 2 SPRAYS NA QHS PRN for ALLERGIES Loratadine (Loratadine) 10 Mg Tab, 10 MG PO DAILY PRN for ALLERGIES Prochlorperazine Maleate (Prochlorperazine Maleate) 10 Mg Tab, 10 MG PO BID PRN for NAUSEA OR VOMITING Rizatriptan Benzoate (Rizatriptan) 10 Mg Tab, 10 MG PO ASDIRECTED PRN for MIGRAINE Tizanidine HCl (Tizanidine HCl) 2 Mg Tablet, 2 MG PO BID PRN for SPASMS Tramadol HCl (Tramadol HCl) 50 Mg Tab, 100 MG PO Q6H PRN for PAIN Miscellaneous Medications [Patient Comment] MED LIST OBTAINED FROM DR OFFICE Allergies Coded Allergies: FISH (Verified Allergy, Severe, TONGUE SWELLING, 06/26/18) Sulfa (Sulfonamide Antibiotics) (Verified Allergy, Severe, dyspnea/hives/vomiting, 10/05/18) Cephalosporins (Verified Allergy, Intermediate, hives, 10/05/18) Contrast Media (Verified Allergy, Intermediate, HIVES, 10/05/18) Nitrate Analogues (Verified Allergy, Intermediate, HIVES, 10/05/18) Penicillins (Verified Allergy, Intermediate, HIVES, 10/05/18) clavulanic acid (Verified Allergy, Intermediate, hives, 10/05/18) metronidazole (Verified Allergy, Intermediate, HIVES, 10/05/18) nitrofurantoin (Verified Allergy, Intermediate, HIVES, 10/05/18) TAPE (Verified Allergy, Unknown, 06/26/18) chlorhexidine (Verified Allergy, Unknown, UNKNOWN TO PATIENT, 10/05/18) ibuprofen (Verified Allergy, Unknown, UNKNOWN TO PATIENT, 10/05/18) morphine (Verified Allergy, Unknown, UNKNOWN TO PATIENT, 10/05/18) procaine (Verified Allergy, Unknown, UNKNOWN TO PATIENT, 10/05/18) Low Fat Milk (Verified Adverse Reaction, Mild, VOMITING, DIARRHEA, 06/26/18) Quinolones (Verified Adverse Reaction, Mild, GI upset, 10/05/18) clarithromycin (Verified Adverse Reaction, Mild, GI upset, 10/05/18) milk (Verified Adverse Reaction, Mild, vomiting/diarrhea, 10/05/18) A-FIB/CHADSVASC A-FIB History Current/History of A-Fib/PAF?: No KAMALJIT ISIDRO MD Jun 06, 2019 17:50
[2019-06-06 18:00] VITALS: BP 99/68
[2019-06-06] MEDS: NS 1,000 ML IV SCH (18:03)
[2019-06-06] MEDS ORDERED: ACETAMINOPHEN TAB 650MG DOSE (2X325MG) PO PRN (18:20)
[2019-06-06] MEDS: LevoFLOXacin 500 MG TABLET PO SCH (18:59)
[2019-06-06 21:26] VITALS: BP 115/79
[2019-06-06] MEDS: PREGABALIN 100 MG CAP (LYRICA) PO SCH (21:31)
[2019-06-06] MEDS: ATORVASTATIN 20 MG TAB PO SCH (21:31)
[2019-06-06] MEDS: VALPROIC ACID 250MG/5ML SOL ORAL SYRINGE *DRAW UP EXACT DOSE PO SCH (21:32)
[2019-06-06] MEDS: HEPARIN SOD (PORCINE) 5000 UNITS/ML VIAL (J1644 PER 1000UNITS) SC SCH (21:32)
[2019-06-07 06:00] VITALS: BP 114/79
[2019-06-07] MEDS: LEVOTHYROXINE 112MCG TABLET (0.112MG) PO SCH (06:18)
[2019-06-07] MEDS: NS 1,000 ML IV SCH ×2 (06:18→17:57)
[2019-06-07 07:07] LABS: MEAN CORPUSCULAR HEMOGLOBIN 30.1 pg (27.0-33.0); MEAN CORPUSCULAR HGB CONC 31.8 g/dl (32.0-36.5); MEAN CORPUSCULAR VOLUME 94.8 fl (80.0-96.0); PLATELET COUNT, AUTOMATED 134 10^3/uL (150-450); RED BLOOD COUNT 4.22 10^6/uL (4.00-5.40); WHITE BLOOD COUNT 6.9 10^3/uL (4.0-10.0)
[2019-06-07 07:08] LABS: HEMOGLOBIN 12.7 g/dl (12.0-15.5)
[2019-06-07 07:33] LABS: ALBUMIN 2.5 GM/DL (3.2-5.2); ALT/SGPT 7 U/L (12-78); BILIRUBIN,TOTAL 0.4 MG/DL (0.2-1.0); BLOOD UREA NITROGEN 12 MG/DL (7-18); CALCIUM LEVEL 8.3 MG/DL (8.5-10.1); CARBON DIOXIDE LEVEL 29 MEQ/L (21-32); CHLORIDE LEVEL 113 MEQ/L (98-107); CREATININE FOR GFR 0.38 MG/DL (0.55-1.30); GLOMERULAR FILTRATION RATE > 60.0 (>51); GLUCOSE, FASTING 77 MG/DL (70-100); MAGNESIUM LEVEL 1.8 MG/DL (1.8-2.4); POTASSIUM SERUM 3.3 MEQ/L (3.5-5.1); SODIUM LEVEL 146 MEQ/L (136-145); TOTAL PROTEIN 5.3 GM/DL (6.4-8.2)
[2019-06-07] MEDS: VALPROIC ACID 250MG/5ML SOL ORAL SYRINGE *DRAW UP EXACT DOSE PO SCH ×2 (09:12→20:47)
[2019-06-07] MEDS: CLOPIDOGREL 75 MG TAB PO SCH (09:12)
[2019-06-07] MEDS: PREGABALIN 100 MG CAP (LYRICA) PO SCH ×3 (09:12→20:47)
[2019-06-07] MEDS: HEPARIN SOD (PORCINE) 5000 UNITS/ML VIAL (J1644 PER 1000UNITS) SC SCH ×2 (09:12→20:47)
[2019-06-07] MEDS: POTASSIUM CHLORIDE 10 MEQ SR TABLET PO SCH ×2 (10:45→16:43)
[2019-06-07 14:00] VITALS: BP 140/94
[2019-06-07] MEDS: LevoFLOXacin 500 MG TABLET PO SCH (17:57)
[2019-06-07] MEDS: ATORVASTATIN 20 MG TAB PO SCH (20:47)
[2019-06-07 22:00] VITALS: BP 138/94
--- NOTE | 2019-06-07 23:21 | IPNPDOC ---
Date Seen The patient was seen on 06/07/19. Progress Note HISTORY OF PRESENT ILLNESS: 59-year-old female with past medical history of multiple CVAs and hypothyroidism presents from PCPs office for fatigue and failure to thrive. Patient was admitted in April 2019 for UTI, has very low mobility at baseline, requires [id number] help, which is provided by her friend and neighbor. Patient has expressive aphasia and weakness secondary to her strokes. Patient seen in the ED, unable to relate to me why her PCP sent her here, has no complaint at this time, reports she is at her baseline. As per ED physician. Her PCP believe that she has very poor oral intake, has lost weight and appears more fatigued from her baseline. Workup in the ED shows possible UTI, otherwise within normal limits. Patient denies any short of breath, chest pain, nausea, vomiting, abdominal pain or diarrhea. 06/07/19 Comfortable in bed, without any complaints, more alert compared to yesterday, appears to be at her baseline mentation, wishes to eat. 10 point review of system is negative except for above PHYSICAL EXAMINATION: VITAL SIGNS: Please see below. GENERAL: Frail HEENT: Normocephalic, atraumatic, moist mucous membranes NECK: Supple CARDIOVASCULAR EXAMINATION: S1, S2, no murmurs RESPIRATORY EXAMINATION: Scattered rhonchi, no wheezing ABDOMINAL EXAMINATION: Soft, nontender, nondistended, positive bowel sounds EXTREMITIES: Range of motion intact SKIN: No rash NEUROLOGICAL EXAMINATION: no focal deficits PSYCHIATRIC EXAMINATION: Calm and cooperative LABORATORY DATA: See below. ASSESSMENT: 59-year-old female with past medical history of CVA, hypothyroidism is being admitted for failure to thrive a UTI. PLAN: 1. UTI. continue Levaquin, cultures pending. 2. Failure to thrive. Chronic, lives alone, PT/OT, patient family services evaluation requested for possible placement. 3. CVA. Continue Plavix and statin 4. Hypothyroidism. Continue levothyroxine DVT prophylaxis: Heparin subcutaneous. GI prophylaxis: Not needed VS, I&O, 24H, Fishbone Vital Signs/I&O Vital Signs Date Time Temp Pulse Resp B/P (MAP) Pulse Ox O2 Delivery O2 Flow Rate FiO2 06/07/19 22:00 99.5 100 18 138/94 (109) 95 Room Air I&O- Last 24 Hours up to 6 AM 06/07/19 06:00 Intake Total 1120 ml Balance 1120 ml Laboratory Data 24H LABS Laboratory Tests 2 06/07/19 06:53: Nucleated Red Blood Cells % (auto) 0.0 06/07/19 06:54: Anion Gap 4L, Glomerular Filtration Rate > 60.0, Calcium Level 8.3L, Magnesium Level 1.8, Total Bilirubin 0.4, Aspartate Amino Transf (AST/SGOT) 13, Alanine Aminotransferase (ALT/SGPT) 7L, Alkaline Phosphatase 71, Total Protein 5.3L, Albumin 2.5#L, Albumin/Globulin Ratio 0.89L CBC/BMP Laboratory Tests 06/07/19 06:53 06/07/19 06:54 Microbiology Microbiology 06/06/19 Urine Culture - Final, Complete KAMALJIT ISIDRO MD Jun 07, 2019 23:21
[2019-06-08] MEDS: LEVOTHYROXINE 112MCG TABLET (0.112MG) PO SCH (05:24)
[2019-06-08 06:00] VITALS: BP 134/80
[2019-06-08 06:46] LABS: HEMATOCRIT 41.1 % (36.0-47.0); HEMOGLOBIN 13.5 g/dl (12.0-15.5); MEAN CORPUSCULAR HEMOGLOBIN 30.3 pg (27.0-33.0); MEAN CORPUSCULAR HGB CONC 32.8 g/dl (32.0-36.5); MEAN CORPUSCULAR VOLUME 92.4 fl (80.0-96.0); PLATELET COUNT, AUTOMATED 164 10^3/uL (150-450); RED BLOOD COUNT 4.45 10^6/uL (4.00-5.40); WHITE BLOOD COUNT 8.8 10^3/uL (4.0-10.0)
[2019-06-08 07:10] LABS: BLOOD UREA NITROGEN 7 MG/DL (7-18); CALCIUM LEVEL 8.9 MG/DL (8.5-10.1); CARBON DIOXIDE LEVEL 23 MEQ/L (21-32); CHLORIDE LEVEL 108 MEQ/L (98-107); GLOMERULAR FILTRATION RATE > 60.0 (>51); GLUCOSE, FASTING 68 MG/DL (70-100); POTASSIUM SERUM 3.8 MEQ/L (3.5-5.1); SODIUM LEVEL 141 MEQ/L (136-145)
[2019-06-08] MEDS ORDERED: POTASSIUM CHLORIDE 10 MEQ SR TABLET PO ONE (09:00)
[2019-06-08] MEDS: CLOPIDOGREL 75 MG TAB PO SCH (09:23)
[2019-06-08] MEDS: PREGABALIN 100 MG CAP (LYRICA) PO SCH ×3 (09:23→21:00)
[2019-06-08] MEDS: VALPROIC ACID 250MG/5ML SOL ORAL SYRINGE *DRAW UP EXACT DOSE PO SCH ×2 (09:23→21:00)
[2019-06-08] MEDS: HEPARIN SOD (PORCINE) 5000 UNITS/ML VIAL (J1644 PER 1000UNITS) SC SCH ×2 (09:24→21:24)
[2019-06-08] MEDS: D5W/0.45% SODIUM CHLORIDE 1,000 ML IV SCH (10:59)
[2019-06-08 14:00] VITALS: BP 149/91
[2019-06-08] MEDS: LevoFLOXacin 500 MG TABLET PO SCH (16:55)
--- NOTE | 2019-06-08 19:17 | IPNPDOC ---
Date Seen The patient was seen on 06/08/19. Progress Note HISTORY OF PRESENT ILLNESS: 59-year-old female with past medical history of multiple CVAs and hypothyroidism presents from PCPs office for fatigue and failure to thrive. Patient was admitted in April 2019 for UTI, has very low mobility at baseline, requires [id number] help, which is provided by her friend and neighbor. Patient has expressive aphasia and weakness secondary to her strokes. Patient seen in the ED, unable to relate to me why her PCP sent her here, has no complaint at this time, reports she is at her baseline. As per ED physician. Her PCP believe that she has very poor oral intake, has lost weight and appears more fatigued from her baseline. Workup in the ED shows possible UTI, otherwise within normal limits. Patient denies any short of breath, chest pain, nausea, vomiting, abdominal pain or diarrhea. 06/07/19 Comfortable in bed, without any complaints, more alert compared to yesterday, appears to be at her baseline mentation, wishes to eat. 06/08/19 Patient comfortable in bed, no new complaints today, not tolerating oral intake, concerning for possible aspiration, wishes to make her neighbor her healthcare proxy, paperwork filled out. 10 point review of system is negative except for above PHYSICAL EXAMINATION: VITAL SIGNS: Please see below. GENERAL: Frail HEENT: Normocephalic, atraumatic, moist mucous membranes NECK: Supple CARDIOVASCULAR EXAMINATION: S1, S2, no murmurs RESPIRATORY EXAMINATION: Scattered rhonchi, no wheezing ABDOMINAL EXAMINATION: Soft, nontender, nondistended, positive bowel sounds EXTREMITIES: Range of motion intact SKIN: No rash NEUROLOGICAL EXAMINATION: no focal deficits PSYCHIATRIC EXAMINATION: Calm and cooperative LABORATORY DATA: See below. ASSESSMENT: 59-year-old female with past medical history of CVA, hypothyroidism is being admitted for failure to thrive a UTI. PLAN: 1. Dysphasia. Concern for aspiration, nothing by mouth, IV fluids, official swallow eval tomorrow. 2. Failure to thrive. Chronic, lives alone, PT/OT, patient family services evaluation requested for placement, patient in agreement, neighbor is now her official healthcare proxy. 3. CVA. Continue Plavix and statin 4. Hypothyroidism. Continue levothyroxine 5. UTI. Completed treatment course with Levaquin DVT prophylaxis: Heparin subcutaneous. GI prophylaxis: Not needed VS, I&O, 24H, Fishbone Vital Signs/I&O Vital Signs Date Time Temp Pulse Resp B/P (MAP) Pulse Ox O2 Delivery O2 Flow Rate FiO2 06/08/19 14:00 98.9 112 18 149/91 (110) 90 Room Air I&O- Last 24 Hours up to 6 AM 06/08/19 06:00 Intake Total 180 ml Balance 180 ml Laboratory Data 24H LABS Laboratory Tests 2 06/08/19 06:32: Nucleated Red Blood Cells % (auto) 0.0, Anion Gap 10, Glomerular Filtration Rate > 60.0, Calcium Level 8.9 CBC/BMP Laboratory Tests 06/08/19 06:32 Microbiology Microbiology 06/06/19 Urine Culture - Final, Complete KAMALJIT ISIDRO MD Jun 08, 2019 19:17
[2019-06-08 20:38] VITALS: O2SAT 94
[2019-06-08] MEDS: ATORVASTATIN 20 MG TAB PO SCH (21:00)
[2019-06-08 21:28] LABS: ABG BASE EXCESS 2.4 (-2.0-2.0); ABG O2 SATURATION 93.3 % (95.0-99.0); ABG STANDARD HCO3 26.5 MEQ/L (22.0-26.0); ABG TOTAL CO2 26.1 MEQ/L (22.0-29.0); ABG pH (ARTERIAL) 7.498 UNITS (7.350-7.450)
[2019-06-08 21:30] VITALS: BP 146/98
[2019-06-08 21:40] VITALS: BP 146/98
[2019-06-08 22:00] VITALS: BP 155/82
[2019-06-09] VITALS (24 sets, daily range): BP systolic 117–146; BP diastolic 69–94; O2SAT 72–97
[2019-06-09] MEDS: D5W/0.45% SODIUM CHLORIDE 1,000 ML IV SCH ×2 (01:28→23:43)
--- NOTE | 2019-06-09 03:56 | REP ---
Clinical: Possible aspiration pneumonia . Comparison: 06/06/2019. Findings: Mediastinum and cardiac silhouette are relatively stable/normal. Lung rizzo demonstrate stable chronic changes. No focal consolidation, effusion, or pneumothorax. Skeletal structures demonstrate osteopenia and degenerative changes. Impression: No acute cardiopulmonary process appreciated. No focal consolidation or effusion. Electronically Signed by Ron Willett MD 06/09/2019 03:47 A
[2019-06-09 04:13] LABS: ABG BASE EXCESS 1.9 (-2.0-2.0); ABG HCO3 25.1 MEQ/L (22.0-26.0); ABG O2 SATURATION 93.9 % (95.0-99.0); ABG PARTIAL PRESSURE CO2 34.8 mmHg (35.0-45.0); ABG PARTIAL PRESSURE O2 67.1 mmHg (75.0-100.0); ABG STANDARD HCO3 26.1 MEQ/L (22.0-26.0); ABG TOTAL CO2 26.2 MEQ/L (22.0-29.0); ABG pH (ARTERIAL) 7.476 UNITS (7.350-7.450)
[2019-06-09 04:16] LABS: HEMATOCRIT 44.1 % (36.0-47.0); HEMOGLOBIN 14.9 g/dl (12.0-15.5); MEAN CORPUSCULAR HEMOGLOBIN 30.8 pg (27.0-33.0); MEAN CORPUSCULAR HGB CONC 33.8 g/dl (32.0-36.5); MEAN CORPUSCULAR VOLUME 91.3 fl (80.0-96.0); PLATELET COUNT, AUTOMATED 165 10^3/uL (150-450); RED BLOOD COUNT 4.83 10^6/uL (4.00-5.40); WHITE BLOOD COUNT 10.7 10^3/uL (4.0-10.0)
[2019-06-09 04:39] LABS: BLOOD UREA NITROGEN 5 MG/DL (7-18); CALCIUM LEVEL 8.6 MG/DL (8.5-10.1); CARBON DIOXIDE LEVEL 26 MEQ/L (21-32); CHLORIDE LEVEL 106 MEQ/L (98-107); GLOMERULAR FILTRATION RATE > 60.0 (>51); GLUCOSE, FASTING 109 MG/DL (70-100); POTASSIUM SERUM 3.3 MEQ/L (3.5-5.1); SODIUM LEVEL 143 MEQ/L (136-145)
[2019-06-09] MEDS: VALPROIC ACID 250MG/5ML SOL ORAL SYRINGE *DRAW UP EXACT DOSE PO SCH (09:00)
[2019-06-09] MEDS: HEPARIN SOD (PORCINE) 5000 UNITS/ML VIAL (J1644 PER 1000UNITS) SC SCH ×2 (09:00→21:05)
[2019-06-09] MEDS: CLOPIDOGREL 75 MG TAB PO SCH (09:00)
[2019-06-09] MEDS: PREGABALIN 100 MG CAP (LYRICA) PO SCH ×3 (09:00→20:27)
--- NOTE | 2019-06-09 09:15 | REP ---
Portable chest, 08:54 a.m., single AP view with the patient upright: Comparison is 06/08/2019 at 05:37 p.m.: There is a large opacity occupying the inferior half of the right hemithorax as a definite interval change. This could represent an effusion, infiltrate or combination. Left lung is clear. Cardiac size cannot be determined, the right cardiac margin is obscured. Impression: New large opacity in the inferior half of the right hemithorax as an interval change. Infiltrate, effusion versus combination. Electronically Signed by Vickey Starr MD 06/09/2019 09:07 A
[2019-06-09] MEDS: LEVOTHYROXINE 100 MCG (0.1MG) VIAL IV SCH (10:08)
[2019-06-09] MEDS: KCL 10MEQ/100ML SWI (KRUN) 10 MEQ in IV 1 EA IV SCH ×4 (10:09→18:07)
[2019-06-09 11:16] LABS: ABG BASE EXCESS -0.6 (-2.0-2.0); ABG HCO3 20.3 MEQ/L (22.0-26.0); ABG O2 SATURATION 61.1 % (95.0-99.0); ABG PARTIAL PRESSURE CO2 25.2 mmHg (35.0-45.0); ABG pH (ARTERIAL) 7.523 UNITS (7.350-7.450)
--- NOTE | 2019-06-09 11:18 | PHACANCOPD ---
PHARMACY VANCOMYCIN DOSING Pt Demographics Demographics Patient Age:59 , Weight:49.300 , Gender: female Adjusted Body Weight Date: 06/09/19, Adjusted Body Weight: Kg Events Past 24 Hours Events Past 24 Hours: YES: Elevation in WBC Vancomycin Vancomycin Target Ranges: 15-20 mcg/ml Vancomycin Load Y/N: Yes Load Dose Date Time Vancomycin Load Dose: 1 GM Date: 06/09/19 Time: 1200 Vancomycin Dose Date: 06/09/19. Current Vancomycin Dose: [750 MG IV Q12H] Intermittent Dosing?: No Labs Labs Item Value Date Time White Blood Count 8.8 10^3/uL 06/08/19 0632 White Blood Count 10.7 10^3/uL H 06/09/19 0406 Micro Microbiology 06/06/19 Urine Culture - Final, Complete Creatinine Clearance Date:06/09/19. Creatinine Clearance: . Assessment and Plan Maintaining Current Dose?: Yes Reason for dose change: No Dose Change Pharmacist Note Pharmacist Note Date: 06/09/19. Pharmacist note: Pharmacy consulted for possible aspiration pneumonia with a goal trough of 15 -20 mcg/ml. Patient has no history of Vanco or MRSA here at [facility]. MRSA PCR has been ordered. We'll load her with 1 gm and follow with 750 mg IV q12h. Pharmacy will continue to monitor and make adjustments as needed. [facility] Jun 09, 2019 11:18
[2019-06-09 11:19] LABS: ABG PARTIAL PRESSURE O2 30.5 mmHg (75.0-100.0)
[2019-06-09 11:38] LABS: ABG BASE EXCESS -2.6 (-2.0-2.0); ABG HCO3 18.7 MEQ/L (22.0-26.0); ABG O2 SATURATION 75.5 % (95.0-99.0); ABG STANDARD HCO3 21.8 MEQ/L (22.0-26.0); ABG TOTAL CO2 19.5 MEQ/L (22.0-29.0); ABG pH (ARTERIAL) 7.492 UNITS (7.350-7.450)
[2019-06-09 11:40] LABS: ABG PARTIAL PRESSURE O2 40.1 mmHg (75.0-100.0)
[2019-06-09] MEDS ORDERED: SODIUM CHLORIDE HYPERTONIC 3% 15ML NEB SOL INH SCH (12:00)
[2019-06-09] MEDS ORDERED: VANCOMYCIN HCL 1,000 MG, VIAL MATE ADAPTER 1 EACH in D5W 250 ML IV ONE (12:00)
[2019-06-09 12:57] LABS: MAGNESIUM LEVEL 1.7 MG/DL (1.8-2.4); NT-PRO BNP 1339 PG/ML (<125)
[2019-06-09 13:33] LABS: CLOSTRIDIUM DIFFICILE PCR NEGATIVE (NEGATIVE)
[2019-06-09] MEDS ORDERED: MAG SULF 1GM/100ML (MAG RUN) 1 GM in IV 1 EA IV ONE (14:00)
--- NOTE | 2019-06-09 14:27 | CR ---
DATE OF CONSULTATION: 06/09/2019 HISTORY OF PRESENT ILLNESS: Ms. Aguilar is a 59-year-old female with a history of multiple cerebrovascular accidents(CVAs), hypothyroidism, history of failure to thrive, who is at baseline limited functionally due to her previous strokes with expressive aphasia and generalized weakness. She was referred from primary care for fatigue and for failure to thrive. She had previously been admitted in April of 2019 for a urinary tract infection (UTI). The patient is unable to provide a clear history due to her expressive aphasia. As per collateral information, the patient was thought to have poor oral intake and weight loss and appeared more fatigued than baseline. She was initially admitted on 06/06/2019 and started on Levaquin for a possible UTI. The patient has had previous issues with swallowing, and there was concern for aspiration with her history of CVAs and dysphasia. The patient was seen by speech and swallow earlier today and was recommended to have a cookie swallow evaluation after their visit. After her evaluation by speech, the patient was noted to have increasing respiratory distress with tachypnea, as well as hypoxia. The patient was previously on high-flow nasal cannula, as well as a VentiMask and had been saturating in the 90s. They did have issues with getting a good reading, and so she also had an arterial blood gas (ABG) done earlier this morning which did show her pO2 was 67. Later on in the morning, however, she continued to have worsening respiratory distress, and her chest x-ray had showed evidence of new right lower lobe collapse. The patient was, therefore, brought to the intensive care unit (ICU) for worsening hypoxic respiratory failure and further management. PAST MEDICAL AND SURGICAL HISTORY: CVA, hypothyroidism, dysphagia, hyperlipidemia. HOME MEDICATIONS: - atorvastatin - Plavix - Arnuity - Synthroid - Lyrica - ranitidine - valproic acid - Flonase as needed - loratadine as needed - rizatriptan as needed - prochlorperazine as needed - tramadol as needed - tizanidine as needed ALLERGIES: To FISH, SULFA, CEPHALOSPORIN, CONTRAST MEDIA, NITRATES, PENICILLINS, CLAVULANIC ACID, METRONIDAZOLE, NITROFURANTOIN, CHLORHEXIDINE, IBUPROFEN, MORPHINE, PROCAINE, QUINOLONES, CLARITHROMYCIN, MILK. FAMILY HISTORY: Father with history of myocardial infarction ([place]). SOCIAL HISTORY: No history of smoking or alcohol use. PHYSICAL EXAMINATION: Temperature 98.6, pulse 102, respirations 20s-30s, blood pressure 170/81, oxygen (O2) saturation 92% on 10 liters a minute nasal cannula. General: The patient is a frail female, is lying in bed, appears to be tachypneic with some mild diaphoresis. She is awake and alert, is able to answer questions by shaking and nodding her head but has expressive aphasia at baseline. HEENT: Normocephalic, atraumatic. Pupils are reactive to light bilaterally. Mucous membranes are moist. Neck is supple. Trachea is midline. No palpable adenopathy. Cardiovascular: Tachycardic, regular rate and rhythm. Normal S1, S2. Unable to appreciate any murmurs. Pulmonary: Significantly diminished breath sounds on the right side with a few scattered rhonchi noted on the left. Abdomen is soft, nontender, nondistended. No palpable masses. Extremities: There is no significant lower extremity edema noted bilaterally. There is chronic muscle wasting noted. LABORATORIES: WBC 10.7, hemoglobin 14.9, platelets are 105. Chemistry: Sodium is 143, potassium 3.3, chloride is 106, bicarbonate is 20, BUN 5, creatinine 0.40, glucose is 109, magnesium is 1.7. Initial troponins are negative. BNP was added on and elevated at 1339. Albumin is 2.5, TSH 0.010. Arterial blood gas (ABG) this morning: pH 7.476, pCO2 of 34.8, pO2 of 67.1. Repeat ABG: pH 7.492, pCO2 of 25, pO2 of 40.1. MICROBIOLOGY: Urine culture specimen appear contaminated. IMAGING: Initial head CT on 06/06/2019 showed chronic microvascular ischemic disease and an old left MCA territory infarct. Initial chest x-ray showed no focal opacities or effusions. Then repeat chest x-ray 06/09/2019 showed a new opacity in the right lower lobe with evidence of mediastinal shift to the right suggesting right lower lobe atelectasis/collapse but possible trace effusion. ASSESSMENT AND PLAN: Ms. Aguilar is a 59-year-old female with a history of multiple CVAs who is at baseline, very functionally limited with expressive aphasia and has chronic weakness. She requires 24-hour care which is provided by her friend and neighbor. She was sent to the ED for by her primary care provider for her failure to thrive and increased fatigue. Initially on admission, the patient was being treated for possible UTI with Levaquin. She has had a chronic history of dysphagia and some concern for aspiration. She was being evaluated by speech and swallow but was noted to have worsening hypoxemia and increased respiratory distress. Her initial x-ray did not show any focal opacities or infiltrates. However, her repeat x-ray this morning shows new right lower lobe collapse likely from aspiration. The patient was noted to have worsening hypoxia in the setting of her right lower lobe collapse requiring increasing amounts of oxygen supplementation. She was transferred to the ICU for further management. 1. Acute hypoxemic respiratory failure in the setting of aspiration and right lower lobe collapse. - The patient will require aggressive chest physical therapy (PT) with a percussion vest, as well as physical chest percussion for pulmonary toilet. The patient was also positioned with the right lung up, and her oxygenation started to improve on the pulse oximeter with the positioning and chest PT to 94%-95%. - The patient was changed to Vapotherm for her acute hypoxemic respiratory failure. As she is having concern for aspiration and difficulty with secretions, she would not be a good candidate for a noninvasive positive pressure ventilation, and she also has no evidence of hypercarbia or difficulty with ventilation. The Vapotherm is humidified, which will also help with her secretions and pulmonary toilet hopefully and also allow her to cough. Will continue to adjust and wean down her Vapotherm settings as tolerated to maintain O2 sat above 90%. - Would have the patient positioned right side up as much as possible. - Can continue with nebulizer treatment with her chest PT. If there is still difficulty with mucus clearance, can consider starting her on hypertonic nebulizers or Mucomyst if tolerated. - Will repeat a chest x-ray later this afternoon. Would hold off on CT chest at this time. - The patient's antibiotics were broadened from Levaquin to vancomycin and meropenem. Will check a sputum culture and a procalcitonin to adobe layer helper with de-escalation of her antibiotics. - Hypokalemia. The patient was being repleted with potassium, but her magnesium level was added on and noted to be low. Will also replete magnesium and then continue with potassium repletion. Will continue with gentle fluid hydration with D5 half normal saline (NS), as she is nothing by mouth for now pending a [facility] swallow, although suspect she is having significant aspiration. - TSH is low, will check a free T4. Continue with her Synthroid for now. - Continue the rest of her home medications as per primary team. Deep venous thrombosis (DVT) prophylaxis with heparin. CODE STATUS: FULL CODE. The patient's neighbor was made her healthcare proxy; and after discussion, they did want intubation if needed. If the patient has worsening respiratory distress, she is not a candidate for bilateral positive airway pressure (BiPAP). She would need to be intubated for her hypoxic respiratory failure. Total critical care time spent not including procedures approximately 1 hour and 50 minutes. FREDDY
[2019-06-09] MEDS: MEROPENEM INJ 1 GM in IV 1 EA IV SCH ×2 (14:40→21:04)
--- NOTE | 2019-06-09 17:06 | REP ---
Portable chest chest, 04:20 p.m., single AP view with the the patient upright: Comparison is the portable chest from earlier today at 08:54 a.m. The large opacity inferiorly in the right lung is again identified. The right upper lobe is clear. The left lung is clear. Cardiac size cannot be assessed as the right cardiac margin is obscured. Impression: Persisting opacification of the right lung inferiorly. Electronically Signed by Vickey Starr MD 06/09/2019 04:57 P
--- NOTE | 2019-06-09 18:01 | IPNPDOC ---
Date Seen The patient was seen on 06/09/19. Progress Note HISTORY OF PRESENT ILLNESS: 59-year-old female with past medical history of multiple CVAs and hypothyroidism presents from PCPs office for fatigue and failure to thrive. Patient was admitted in April 2019 for UTI, has very low mobility at baseline, requires [id number] help, which is provided by her friend and neighbor. Patient has expressive aphasia and weakness secondary to her strokes. Patient seen in the ED, unable to relate to me why her PCP sent her here, has no complaint at this time, reports she is at her baseline. As per ED physician. Her PCP believe that she has very poor oral intake, has lost weight and appears more fatigued from her baseline. Workup in the ED shows possible UTI, otherwise within normal limits. Patient denies any short of breath, chest pain, nausea, vomiting, abdominal pain or diarrhea. 06/07/19 Comfortable in bed, without any complaints, more alert compared to yesterday, appears to be at her baseline mentation, wishes to eat. 06/08/19 Patient comfortable in bed, no new complaints today, not tolerating oral intake, concerning for possible aspiration, wishes to make her neighbor her healthcare proxy, paperwork filled out. 06/09/19 Patient seen in the morning, requiring an extensive amount of supplemental oxygen to maintain adequate saturation, had multiple hypoxemic episodes overnight requiring deep suctioning with improvement in saturation, patient has been aspirating her oral secretions for the past 24-48 hours, likely has chronic microaspiration. Chest x-ray repeated in the morning shows white out of the right lower lung, likely due to aspiration/mucous plugging, patient requiring 100% FiO2 and despite that, PCO2 on ABG was 30, ICU was consulted for possible intubation. Had a discussion with patient's healthcare proxy, who wishes to keep the patient fell code for now, agreeable to endotracheal intubation and mechanical ventilation if needed. Patient reports mild dyspnea, otherwise at her baseline and without additional complaints. 10 point review of system is negative except for above PHYSICAL EXAMINATION: VITAL SIGNS: Please see below. GENERAL: Frail HEENT: Normocephalic, atraumatic, moist mucous membranes NECK: Supple CARDIOVASCULAR EXAMINATION: S1, S2, no murmurs RESPIRATORY EXAMINATION: Absent in the right lower lung, scattered rhonchi, no wheezing ABDOMINAL EXAMINATION: Soft, nontender, nondistended, positive bowel sounds EXTREMITIES: Range of motion intact SKIN: No rash NEUROLOGICAL EXAMINATION: no focal deficits PSYCHIATRIC EXAMINATION: Calm and cooperative LABORATORY DATA: See below. ASSESSMENT: 59-year-old female with past medical history of CVA, hypothyroidism is being admitted for failure to thrive a UTI. PLAN: 1. Aspiration pneumonia Likely has chronic microaspiration with further aspiration of oral secretions for the past 24-48 hours, worsened today after swallow evaluation, possibly aspirated during swallow evaluation, chest x-ray showing right lower lobe opacity, concerning for mucous plugging/aspiration pneumonia. Patient is requiring 100% FiO2 to maintain adequate saturation, will transfer to the ICU, right side up, chest PT, hypertonic saline nebulizers, empiric vancomycin/meropenem for aspiration pneumonia, freelance data entry consulted. Nothing by mouth, maintenance IV fluids. 2. Failure to thrive. Chronic, lives alone, PT/OT, patient family services arranging for placement options when patient is stable. 3. CVA. Continue Plavix and statin 4. Hypothyroidism. Continue levothyroxine 5. UTI. Completed treatment course with Levaquin DVT prophylaxis: Heparin subcutaneous. GI prophylaxis: Not needed VS, I&O, 24H, Fishbone Vital Signs/I&O Vital Signs Date Time Temp Pulse Resp B/P (MAP) Pulse Ox O2 Delivery O2 Flow Rate FiO2 06/09/19 16:08 99.2 112 18 119/69 (86) 96 HVNI-Vapotherm 40.0 100 I&O- Last 24 Hours up to 6 AM 06/09/19 06:00 Intake Total 50 ml Balance 50 ml Laboratory Data 24H LABS Laboratory Tests 2 06/08/19 21:17: Blood Gas Bicarbonate Standard 26.5H, Arterial Blood pH 7.498H, Arterial Blood Partial Pressure CO2 33.0L, Arterial Blood Partial Pressure O2 67.0L, Arterial Blood Total CO2 26.1, Arterial Blood HCO3 25.0, Arterial Blood Base Excess 2.4H, Arterial Blood Oxygen Saturation 93.3L 06/08/19 21:42: Bedside Glucose (Misc Panel) 107H 06/09/19 03:49: Blood Gas Bicarbonate Standard 26.1H, Arterial Blood pH 7.476H, Arterial Blood Partial Pressure CO2 34.8L, Arterial Blood Partial Pressure O2 67.1L, Arterial Blood Total CO2 26.2, Arterial Blood HCO3 25.1, Arterial Blood Base Excess 1.9, Arterial Blood Oxygen Saturation 93.9L 06/09/19 04:06: Nucleated Red Blood Cells % (auto) 0.0, Anion Gap 11, Glomerular Filtration Rate > 60.0, Calcium Level 8.6, Magnesium Level 1.7L, UF-Wkw-F-Type Natriuretic Peptide 1339H 06/09/19 11:06: Blood Gas Bicarbonate Standard 23.0, Arterial Blood pH 7.523H, Arterial Blood Partial Pressure CO2 25.2L, Arterial Blood Partial Pressure O2 30.5*L, Arterial Blood Total CO2 21.0L, Arterial Blood HCO3 20.3L, Arterial Blood Base Excess - 0.6, Arterial Blood Oxygen Saturation 61.1L 06/09/19 11:28: Blood Gas Bicarbonate Standard 21.8L, Arterial Blood pH 7.492H, Arterial Blood Partial Pressure CO2 25.0L, Arterial Blood Partial Pressure O2 40.1*L, Arterial Blood Total CO2 19.5L, Arterial Blood HCO3 18.7L, Arterial Blood Base Excess - 2.6L, Arterial Blood Oxygen Saturation 75.5L 06/09/19 12:23: Clostridium difficile [id number] PRESUMPTIVE NEGATIVE, Clostridium difficile Toxin (PCR) NEGATIVE, Methicillin-Resist S.aureus DNA PCR DETECTEDH 06/09/19 14:10: Free Thyroxine 2.06H CBC/BMP Laboratory Tests 06/09/19 04:06 Microbiology Microbiology 06/09/19 Blood Culture, Received Pending 06/09/19 Blood Culture, Received Pending 06/06/19 Urine Culture - Final, Complete KAMALJIT ISIDRO MD Jun 09, 2019 18:01
[2019-06-09] MEDS ORDERED: KCL 10MEQ IN STERILE WATER 100ML As Ordered ONE (18:06)
[2019-06-09] MEDS: ATORVASTATIN 20 MG TAB PO SCH (20:27)
[2019-06-09] MEDS: VALPROATE SOD INJ 500 MG in D5W 50 ML IV SCH (21:50)
[2019-06-10] VITALS (16 sets, daily range): BP systolic 124–151; BP diastolic 80–98; O2SAT 85–94
[2019-06-10] MEDS: MEROPENEM INJ 1 GM in IV 1 EA IV SCH ×3 (04:08→18:21)
[2019-06-10 05:06] LABS: BASO # 0.1 10^3/uL (0.0-0.2); BASO % 0.3 % (0.0-1.0); EOS % 0.1 % (0.0-3.0); HEMATOCRIT 43.4 % (36.0-47.0); HEMOGLOBIN 14.6 g/dl (12.0-15.5); LYMPH # 1.1 10^3/uL (1.5-5.0); LYMPH % 7.7 % (24.0-44.0); MEAN CORPUSCULAR HEMOGLOBIN 30.9 pg (27.0-33.0); MEAN CORPUSCULAR HGB CONC 33.6 g/dl (32.0-36.5); MEAN CORPUSCULAR VOLUME 91.8 fl (80.0-96.0); MONO # 0.5 10^3/uL (0.0-0.8); MONO % 3.2 % (0.0-5.0); NEUTROPHILS # 12.8 10^3/uL (1.5-8.5); NEUTROPHILS % 88.4 % (36.0-66.0); PLATELET COUNT, AUTOMATED 197 10^3/uL (150-450); RED BLOOD COUNT 4.73 10^6/uL (4.00-5.40); WHITE BLOOD COUNT 14.5 10^3/uL (4.0-10.0)
[2019-06-10 05:31] LABS: BLOOD UREA NITROGEN 5 MG/DL (7-18); CARBON DIOXIDE LEVEL 26 MEQ/L (21-32); CHLORIDE LEVEL 104 MEQ/L (98-107); CREATININE FOR GFR 0.41 MG/DL (0.55-1.30); GLOMERULAR FILTRATION RATE > 60.0 (>51); GLUCOSE, FASTING 121 MG/DL (70-100); MAGNESIUM LEVEL 2.1 MG/DL (1.8-2.4); PHOSPHORUS LEVEL 2.3 MG/DL (2.5-4.9); POTASSIUM SERUM 3.5 MEQ/L (3.5-5.1); SODIUM LEVEL 137 MEQ/L (136-145)
[2019-06-10 05:43] LABS: ABG BASE EXCESS 1.6 (-2.0-2.0); ABG O2 SATURATION 99.1 % (95.0-99.0); ABG PARTIAL PRESSURE CO2 35.7 mmHg (35.0-45.0); ABG PARTIAL PRESSURE O2 139.3 mmHg (75.0-100.0); ABG STANDARD HCO3 25.9 MEQ/L (22.0-26.0); ABG TOTAL CO2 26.1 MEQ/L (22.0-29.0); ABG pH (ARTERIAL) 7.464 UNITS (7.350-7.450)
--- NOTE | 2019-06-10 07:44 | REP ---
Portable chest, 07:12 a.m., single AP view with the patient upright: Comparison is 06/09 2019 at 04:20 p.m.: The large opacity inferiorly in the right lung is unchanged. Left lung is clear. Cardiac size cannot be determined as previously, the right cardiac margin is obscured. Impression: There is no interval change. Electronically Signed by Vickey Starr MD 06/10/2019 07:35 A
[2019-06-10] MEDS: SODIUM CHLORIDE 0.9% 3ML NEB SOLUTION FOR INHALATION INH SCH ×3 (08:30→20:10)
[2019-06-10] MEDS: CLOPIDOGREL 75 MG TAB PO SCH (09:00)
[2019-06-10] MEDS: PREGABALIN 100 MG CAP (LYRICA) PO SCH ×3 (09:00→20:30)
[2019-06-10] MEDS: LEVOTHYROXINE 100 MCG (0.1MG) VIAL IV SCH (09:47)
[2019-06-10] MEDS: VALPROATE SOD INJ 500 MG in D5W 50 ML IV SCH (09:48)
[2019-06-10] MEDS: KCL 10MEQ/100ML SWI (KRUN) 10 MEQ in IV 1 EA IV SCH ×4 (09:48→15:27)
[2019-06-10] MEDS: HEPARIN SOD (PORCINE) 5000 UNITS/ML VIAL (J1644 PER 1000UNITS) SC SCH ×2 (09:48→20:35)
[2019-06-10] MEDS ORDERED: LIDOCAINE 1% MDV 20ML VIAL As Ordered ONE (11:39)
[2019-06-10] MEDS: VANCOMYCIN HCL 750 MG, VIAL MATE ADAPTER 1 EACH in D5W 250 ML IV SCH ×4 (12:47)
[2019-06-10] MEDS ORDERED: VANCOMYCIN HCL 500 MG in D5W MINI-BAG PLUS 100 ML IV ONE (13:00)
--- NOTE | 2019-06-10 14:11 | IPNPDOC ---
Date Seen The patient was seen on 06/10/19. Progress Note HISTORY OF PRESENT ILLNESS: 59-year-old female with past medical history of multiple CVAs and hypothyroidism presents from PCPs office for fatigue and failure to thrive. Patient was admitted in April 2019 for UTI, has very low mobility at baseline, requires [id number] help, which is provided by her friend and neighbor. Patient has expressive aphasia and weakness secondary to her strokes. Patient seen in the ED, unable to relate to me why her PCP sent her here, has no complaint at this time, reports she is at her baseline. As per ED physician. Her PCP believe that she has very poor oral intake, has lost weight and appears more fatigued from her baseline. Workup in the ED shows possible UTI, otherwise within normal limits. Patient denies any short of breath, chest pain, nausea, vomiting, abdominal pain or diarrhea. 06/07/19 Comfortable in bed, without any complaints, more alert compared to yesterday, appears to be at her baseline mentation, wishes to eat. 06/08/19 Patient comfortable in bed, no new complaints today, not tolerating oral intake, concerning for possible aspiration, wishes to make her neighbor her healthcare proxy, paperwork filled out. 06/09/19 Patient seen in the morning, requiring an extensive amount of supplemental oxygen to maintain adequate saturation, had multiple hypoxemic episodes overnight requiring deep suctioning with improvement in saturation, patient has been aspirating her oral secretions for the past 24-48 hours, likely has chronic microaspiration. Chest x-ray repeated in the morning shows white out of the right lower lung, likely due to aspiration/mucous plugging, patient requiring 100% FiO2 and despite that, PCO2 on ABG was 30, ICU was consulted for possible intubation. Had a discussion with patient's healthcare proxy, who wishes to keep the patient fell code for now, agreeable to endotracheal intubation and mechanical ventilation if needed. Patient reports mild dyspnea, otherwise at her baseline and without additional complaints. 06/10/19 Patient remains on Vapotherm, FiO2 down to 60% in the morning, repeat x-ray in the morning, unchanged is not slightly worsened from yesterday, patient otherwise comfortable, without any new complaints. She denies any chest pain, nausea, vomiting, abdominal pain or diarrhea. 10 point review of system is negative except for above PHYSICAL EXAMINATION: VITAL SIGNS: Please see below. GENERAL: Frail, cachectic HEENT: Normocephalic, atraumatic, moist mucous membranes NECK: Supple CARDIOVASCULAR EXAMINATION: S1, S2, no murmurs RESPIRATORY EXAMINATION: Absent in the right lower lung, scattered rhonchi, no wheezing ABDOMINAL EXAMINATION: Soft, nontender, nondistended, positive bowel sounds EXTREMITIES: Range of motion intact SKIN: No rash NEUROLOGICAL EXAMINATION: no focal deficits PSYCHIATRIC EXAMINATION: Calm and cooperative LABORATORY DATA: See below. ASSESSMENT: 59-year-old female with past medical history of CVA, hypothyroidism is being admitted for failure to thrive a UTI. PLAN: 1. Aspiration pneumonia Likely has chronic microaspiration, had multiple episodes of aspiration. Over the past 24-48 hours, requiring deep suctioning, right lower lobe aspiration pneumonia, remains unchanged on today's x-ray, FiO2 requirements down to 60% via Vapotherm, continue chest PT and broad-spectrum antibiotics, senior ui software engineer following, nothing by mouth, IV fluids. 2. Severe protein malnutrition Chronic, has had dysphagia since CVA, chronically aspirating with recent worsening, nothing by mouth, will discuss PEG tube placement with healthcare proxy. 3. CVA. Continue Plavix and statin 4. Hypothyroidism. TSH 0.01, increased levothyroxine dose. DVT prophylaxis: Heparin subcutaneous. GI prophylaxis: Not needed VS, I&O, 24H, [facility] Vital Signs/I&O Vital Signs Date Time Temp Pulse Resp B/P (MAP) Pulse Ox O2 Delivery O2 Flow Rate FiO2 06/10/19 12:30 93 HVNI-Vapotherm 40.0 60 06/10/19 12:10 101 24 06/10/19 12:08 149/95 (113) 06/10/19 08:00 97.8 I&O- Last 24 Hours up to 6 AM 06/10/19 06:00 Intake Total 1940 ml Balance 1940 ml Laboratory Data 24H LABS Laboratory Tests 2 06/09/19 14:10: Free Thyroxine 2.06H 06/09/19 17:37: Bedside Glucose (Misc Panel) 136H 06/10/19 04:17: Immature Granulocyte % (Auto) 0.3, Neutrophils (%) (Auto) 88.4H, Lymphocytes (%) (Auto) 7.7L, Monocytes (%) (Auto) 3.2, Eosinophils (%) (Auto) 0.1, Basophils (%) (Auto) 0.3, Neutrophils # (Auto) 12.8H, Lymphocytes # (Auto) 1.1L, Monocytes # (Auto) 0.5, Eosinophils # (Auto) 0.0, Basophils # (Auto) 0.1, Nucleated Red Blood Cells % (auto) 0.0, Anion Gap 7L, Glomerular Filtration Rate > 60.0, Calcium Level 9.0, Phosphorus Level 2.3L, Magnesium Level 2.1 06/10/19 05:33: Blood Gas Bicarbonate Standard 25.9, Arterial Blood pH 7.464H, Arterial Blood Partial Pressure CO2 35.7, Arterial Blood Partial Pressure O2 139.3H, Arterial Blood Total CO2 26.1, Arterial Blood HCO3 25.0, Arterial Blood Base Excess 1.6, Arterial Blood Oxygen Saturation 99.1H 06/10/19 10:53: Vancomycin Level Trough 8.3L 06/10/19 11:47: Bedside Glucose (Misc Panel) 135H CBC/BMP Laboratory Tests 06/10/19 04:17 Microbiology Microbiology 06/09/19 Blood Culture, Received Pending 06/09/19 Blood Culture - Preliminary, Resulted No growth after 24 hours . All specim... 06/06/19 Urine Culture - Final, Complete KAMALJIT ISIDRO MD Jun 10, 2019 14:11
--- NOTE | 2019-06-10 14:13 | IPN ---
CRITICAL CARE PROGRESS NOTE DATE: 06/10/2019 Patient was seen and examined this morning during bedside rounds. Overnight patient was continued on chest PT with deep percussion vest as well as with physical chest PT and positioning with the right lung up. She was continued on Vapotherm nasal cannula. She was sating well overnight and her EBG this morning showed improvement in her hypoxia. She was weaned down on the Vapotherm to maintain a oxygen saturation above 90%. This morning she appears more comfortable, is awake and alert, and is able to answer questions with nodding or shaking and able to speak a few words. She does have expressive aphasia at baseline. She did not have any fevers noted overnight. She denies any pain. PHYSICAL EXAMINATION: Temperature 97.6, pulse 91, respirations 20, blood pressure 138/81, oxygen (O2) saturation 99% on 90% FiO2 at 40 liters a minute. Was weaned down to 60% FiO2 at 40 liters a minute and sating 95%. General: The patient is a frail female, is lying in bed, appears to be awake and alert and is not in any respiratory distress. Is not using any accessory muscles or respirations currently and does not appear to be diaphoretic as she was yesterday. HEENT: Normocephalic, atraumatic. Pupils are reactive to light bilaterally. Mucous membranes are moist. Neck is supple. Trachea is midline. There is no palpable adenopathy. Cardiovascular: Regular rate and rhythm. Normal S1, S2. Unable to appreciate any murmurs. Pulmonary: Diminished breath sounds on the right side with a few scattered rhonchi noted more on the left. Abdomen is soft, nontender, nondistended. There is no palpable masses. Extremities: There is no significant lower extremity edema noted bilaterally. There is chronic muscle wasting noted. LABS: WBC 14.5, hemoglobin 14.6, platelets are 197. Chemistry - sodium 137, potassium 3.5, chloride is 104, bicarbonate 26, BUN 5, creatinine 0.41, glucose is 121. ABG this morning pH 7.464, pCO2 35.7, p02 of 139.3. IMAGING: Chest x-ray this morning shows continued opacity in the right lung which is unchanged. There is questionable effusion, but there appears to be mediastinal shift to the right more suggestive of atelectasis and consolidation. ASSESSMENT AND PLAN: Ms. Aguilar is a 59-year-old female with a history of multiple CVAs who is at baseline, very functionally limited with expressive aphasia and chronic weakness. She requires 24-hour care which is provided by her friend and neighbor. She had previously been admitted in April with a urinary tract infection (UTI) and she was sent in to the hospital this admission for failure to thrive and increased fatigue. Patient was initially being treated for a UTI with Levaquin. She has a chronic history of dysphagia and there was concern for aspiration which she was being evaluated by speech and swallow. She was noted to have worsening acute hypoxemic respiratory failure and respiratory distress. Her repeat chest x-ray showed development of a new right lower lobe consolidation likely secondary to aspiration pneumonia. She was transferred to the intensive care unit (ICU) for further management. 1. Acute hypoxemic respiratory failure in the setting of aspiration and right lower lobe consolidation and pneumonia 2. Dysphagia and aspiration, chronic residual deficits from prior multiple CVAs 3. Hypothyroidism - Patient was given aggressive chest PT with a percussion vest as wall as physical chest percussion for pulmonary toilet. She was also positioned with the right lung up and her oxygenation has improved, however, her x-ray is unchanged. Patient continues to have a very weak cough and suspects that she now has an aspiration pneumonia in that right side. - Continue patient on Vapotherm for her hypoxemic respiratory failure. Would continue wean down her FiO2 and the flow rate as tolerated to maintain oxygen saturation above 90%. She has been weaned down to 60% FiO2 at 40 liters a minutes and is sating 95% currently. She does appear to be in less respiratory distress than she was previously and her tachycardia has also improved. - We will continue positioning with the right side up as much as possible. - Continue with nebulizer treatments with her chest PT. We will try hypertonic saline nebulizers to see if there is improvement in her mucus clearance if she tolerates it. - Patient had a bedside ultrasound performed on the right lung to assess for any significant effusion. On the right lung she had hepatization of her lung noted with dense consolidation and air bronchograms. There was very minimal pleural effusion on the right side. - Continue with broad spectrum antibiotics with Vancomycin and meropenem given her hospitalization. Will followup with procalcitonin to crutcher helper in de-escalation of antibiotics and will attempt to get a sputum culture if possible. - Patient is still nothing by mouth and receiving gentle fluid hydration. I suspect given her chronic issues with dysphagia and her strokes that she may require a PEG tube placement at some time, but she is still pending cookie swallow evaluation by speech. - Patient's TSH was low. She would need adjustment of her Synthroid which we will discuss with her primary team. - Continue the rest of her home medications as per primary team. Deep venous thrombosis (DVT) prophylaxis. Heparin. Code status: Full code. Total critical care time spent not including procedures approximately 35 minutes. MTDD
[2019-06-10] MEDS: SODIUM CHLORIDE 0.9% INJ 10 ML SYR IV SCH (17:36)
[2019-06-10] MEDS: SCOPOLAMINE 1MG TRANSDERMAL PATCH TOP SCH (18:22)
[2019-06-10] MEDS: D5W/0.45% SODIUM CHLORIDE 1,000 ML IV SCH ×2 (18:22→20:35)
--- NOTE | 2019-06-10 19:51 | REP ---
MIDLINE CATHETER INSERTION WITH SITE ARRONClaribel The procedure was performed under the direct supervision of Dr. Barker. The benefits and risks including but not limited to pain infection bleeding and anaphylaxis were explained and informed consent was obtained by the health care proxy. The procedure was performed in the ICU at the bedside. The right brachial vein was localized using ultrasound guidance. The skin was prepped and draped in a sterile fashion. 1% lidocaine was used as a local anesthetic. Using ultrasound guidance the brachial vein was cannulated and a 0.018 guidewire was inserted. The needle was removed and a 5.5 Romanian dilator and peel-away sheath was inserted over the guide wire. A 5.5 Romanian dual lumen catheter was left at a length of 16.5 cm. The dilator was removed and the catheter was inserted over the guide wire. The peel-away sheath was removed and the catheter was flushed with heparinized saline as per Hospital protocol. The catheter was affixed to the skin and a sterile dressing was applied. The patient tolerated the procedure well and there were no immediate complications. Electronically Signed by TERA Smith 06/10/2019 04:00 P Electronically Signed by Axel Barker MD 06/10/2019 07:41 P
[2019-06-10] MEDS: ATORVASTATIN 20 MG TAB PO SCH (20:29)
[2019-06-11] VITALS (23 sets, daily range): BP systolic 126–158; BP diastolic 78–111
[2019-06-11] MEDS: SODIUM CHLORIDE 0.9% 3ML NEB SOLUTION FOR INHALATION INH SCH ×4 (00:11→19:43)
[2019-06-11] MEDS: VANCOMYCIN HCL 750 MG, VIAL MATE ADAPTER 1 EACH in D5W 250 ML IV SCH ×3 (00:28→20:47)
[2019-06-11] MEDS: MEROPENEM INJ 1 GM in IV 1 EA IV SCH ×3 (04:38→18:28)
[2019-06-11 04:56] LABS: BASO # 0.1 10^3/uL (0.0-0.2); BASO % 0.4 % (0.0-1.0); EOS # 0.1 10^3/uL (0.0-0.5); EOS % 0.7 % (0.0-3.0); HEMATOCRIT 36.8 % (36.0-47.0); HEMOGLOBIN 12.7 g/dl (12.0-15.5); LYMPH % 8.8 % (24.0-44.0); MEAN CORPUSCULAR HEMOGLOBIN 31.1 pg (27.0-33.0); MEAN CORPUSCULAR HGB CONC 34.5 g/dl (32.0-36.5); MONO # 0.5 10^3/uL (0.0-0.8); MONO % 4.4 % (0.0-5.0); NEUTROPHILS # 9.8 10^3/uL (1.5-8.5); NEUTROPHILS % 85.3 % (36.0-66.0); PLATELET COUNT, AUTOMATED 206 10^3/uL (150-450); RED BLOOD COUNT 4.09 10^6/uL (4.00-5.40); WHITE BLOOD COUNT 11.4 10^3/uL (4.0-10.0)
[2019-06-11 05:21] LABS: BLOOD UREA NITROGEN 5 MG/DL (7-18); CALCIUM LEVEL 8.2 MG/DL (8.5-10.1); CARBON DIOXIDE LEVEL 29 MEQ/L (21-32); CHLORIDE LEVEL 105 MEQ/L (98-107); CREATININE FOR GFR 0.26 MG/DL (0.55-1.30); GLOMERULAR FILTRATION RATE > 60.0 (>51); GLUCOSE, FASTING 128 MG/DL (70-100); POTASSIUM SERUM 3.6 MEQ/L (3.5-5.1); SODIUM LEVEL 138 MEQ/L (136-145)
[2019-06-11] MEDS: SODIUM CHLORIDE 0.9% INJ 10 ML SYR IV SCH ×2 (06:00→18:28)
--- NOTE | 2019-06-11 08:08 | REP ---
Portable chest x-ray: Single view. History: Oxygen requirements. Comparison study June 10, 2019. Findings: There is increased pleural opacification in the right lower hemithorax consistent with increased pleural effusion. The right hemidiaphragm is seen to be quite elevated. The left lung remains clear. There is a dextroconvex curvature in the thoracic spine. A midline catheter is seen in the right arm soft tissues terminating in the axilla. Impression: Elevated right hemidiaphragm. Pleural angle blunting consistent with increased right pleural effusion. Electronically Signed by Axel Barker MD 06/11/2019 07:59 A
[2019-06-11] MEDS: CLOPIDOGREL 75 MG TAB PO SCH (09:00)
[2019-06-11] MEDS: PREGABALIN 100 MG CAP (LYRICA) PO SCH ×3 (09:00→20:28)
[2019-06-11] MEDS: VALPROIC ACID 250MG/5ML SOL ORAL SYRINGE *DRAW UP EXACT DOSE PO SCH ×2 (09:00→20:27)
[2019-06-11] MEDS: D5W/0.45% SODIUM CHLORIDE 1,000 ML IV SCH (10:18)
--- NOTE | 2019-06-11 10:52 | CCN ---
DATE: 06/11/2019 The patient was seen and examined this morning during bedside rounds. Overnight the patient had an episode of desaturation after a session with the percussion vest. The patient was desaturating down into the 80s and 70s even with increasing her vapotherm to 100% FiO2. She was positioned with her left lung up however instead of with the right lung up which she usually does better with in terms of oxygenation. After doing continued percussion vest PT and placing her right lung up her saturations improved and she was able to be weaned down on the vapotherm to 55% FiO2 this morning. The patient is awake and alert, is able to answer questions with nodding or shaking her head and able to express a few words, however, she does have expressive aphasia and so was not able to speak in sentences. She denied any pain, did not have any fevers overnight. She does have some shortness of breath although improving. She has a very weak cough. Discussed with the patient today about the possibility of a nasogastric (NG) tube or percutaneous endoscopic gastrostomy (PEG) tube for feeding and she appears to be somewhat hesitant but agreeable. She does want to discuss with her healthcare proxy. PHYSICAL EXAM: Temperature is 98, pulse 83, respirations 25, blood pressure 137/87, oxygen saturation 99% on 55% FiO2 at 40 liters a minute. Ins 1.9 liters, outs not documented. General: The patient is a frail female, is lying in bed, appears to be awake and alert and is not in any respiratory distress. Is not using any accessory muscles for respirations currently. HEENT is normocephalic, atraumatic. Pupils reactive to light bilaterally. Mucous membranes are moist. Neck is supple. Trachea is midline. There is no palpable adenopathy. Cardiovascular is regular rate and rhythm. Normal S1, S2. Unable to appreciate murmurs. Pulmonary: Diminished breath sounds on the right with rhonchi noted bilaterally more on the left. Abdomen is soft, nontender, nondistended. There is no palpable mass. Extremities: There is no significant lower extremity edema bilaterally and no sacral edema. There is chronic muscle wasting noted. LABS: WBC 11.4, hemoglobin 12.7, platelets 206. Chemistry: Sodium is 138, potassium 3.6, chloride is 105, bicarbonate 29, BUN 5, creatinine is 0.26, glucose is 128. IMAGING: Chest x-ray this morning shows continued right lower lobe consolidation which is unchanged. ASSESSMENT: Ms. Aguilar is a 59-year-old female with history of multiple CVAs who is at baseline very functionally limited with expressive aphasia and chronic weakness. She was sent to the hospital for failure to thrive with increased fatigue and decreased oral intake. She has a chronic history of dysphagia and there was concern for aspiration which is being evaluated by speech and swallow. She was noted to have worsening acute hypoxemic respiratory failure and respiratory distress with development of a right lower lobe pneumonia likely secondary to aspiration. The patient was transferred to the intensive care unit (ICU) for management of her hypoxemic respiratory failure. Acute hypoxemic respiratory failure in the setting of aspiration and right lower lobe pneumonia. - The patient is on Vapotherm for hypoxemic respiratory failure and her oxygen saturations have been improving. She does need to be maintained mostly with her right lung up which improves the V/Q mismatch and her oxygenation. Will continue to wean down her FiO2 as tolerated and will attempt to wean down the flow rate as well to maintain oxygen saturation above 90%. - Continue with chest PT with percussion vest as well as with physical chest percussion for pulmonary toilet. The patient does get nasotracheal (NT) suctioning as well as she has a poor cough reflex. - Continue with nebulizer treatments with her chest PT with saline nebulizers to see if there is improvement in her mucus clearance if she tolerates it. - The patient had a bedside ultrasound performed yesterday on the right lung which did not show any significant pleural effusion. The right lung was noted to have dense consolidation in air bronchograms with hepatization of her lung. - Continue with broad-spectrum antibiotics with vancomycin and meropenem. Her procalcitonin was 0.07, so suspect in the next day or two can de-escalate her antibiotics pending the results of her cultures. - The patient is nothing by mouth. She had another bedside swallow eval and with applesauce and honey thick liquids she desaturated. The patient likely has ongoing aspiration and dysphagia in the setting of her previous CVA and would likely need PEG tube for feeding. Would have a discussion with her healthcare proxy about PEG tube placement and NG tube placement and keep her nothing by mouth for now. Continue with gentle fluid hydration. - The patient's TSH was low, her Synthroid was adjusted by the primary team. - Continue rest of home medications as per primary team. Deep venous thrombosis (DVT) prophylax heparin. Code status FULL CODE. Total critical care time spent not including procedures approximately 30 minutes. FREDDY
[2019-06-11] MEDS ORDERED: VANCOMYCIN HCL 1,000 MG, VIAL MATE ADAPTER 1 EACH in D5W 250 ML IV SCH (12:00)
[2019-06-11] MEDS: LEVOTHYROXINE 100 MCG (0.1MG) VIAL IV SCH (12:15)
[2019-06-11] MEDS: HEPARIN SOD (PORCINE) 5000 UNITS/ML VIAL (J1644 PER 1000UNITS) SC SCH ×2 (12:15→20:47)
[2019-06-11] MEDS: VALPROATE SOD INJ 500 MG in D5W 50 ML IV SCH (12:15)
[2019-06-11] MEDS ORDERED: VANCOMYCIN HCL 750 MG, VIAL MATE ADAPTER 1 EACH in D5W 250 ML IV ONE (13:00)
--- NOTE | 2019-06-11 17:10 | IPNPDOC ---
Date Seen The patient was seen on 06/11/19. Progress Note HISTORY OF PRESENT ILLNESS: 59-year-old female with past medical history of multiple CVAs and hypothyroidism presents from PCPs office for fatigue and failure to thrive. Patient was admitted in April 2019 for UTI, has very low mobility at baseline, requires [id number] help, which is provided by her friend and neighbor. Patient has expressive aphasia and weakness secondary to her strokes. Patient seen in the ED, unable to relate to me why her PCP sent her here, has no complaint at this time, reports she is at her baseline. As per ED physician. Her PCP believe that she has very poor oral intake, has lost weight and appears more fatigued from her baseline. Workup in the ED shows possible UTI, otherwise within normal limits. Patient denies any short of breath, chest pain, nausea, vomiting, abdominal pain or diarrhea. 06/07/19 Comfortable in bed, without any complaints, more alert compared to yesterday, appears to be at her baseline mentation, wishes to eat. 06/08/19 Patient comfortable in bed, no new complaints today, not tolerating oral intake, concerning for possible aspiration, wishes to make her neighbor her healthcare proxy, paperwork filled out. 06/09/19 Patient seen in the morning, requiring an extensive amount of supplemental oxygen to maintain adequate saturation, had multiple hypoxemic episodes overnight requiring deep suctioning with improvement in saturation, patient has been aspirating her oral secretions for the past 24-48 hours, likely has chronic microaspiration. Chest x-ray repeated in the morning shows white out of the right lower lung, likely due to aspiration/mucous plugging, patient requiring 100% FiO2 and despite that, PCO2 on ABG was 30, ICU was consulted for possible intubation. Had a discussion with patient's healthcare proxy, who wishes to keep the patient fell code for now, agreeable to endotracheal intubation and mechanical ventilation if needed. Patient reports mild dyspnea, otherwise at her baseline and without additional complaints. 06/10/19 Patient remains on Vapotherm, FiO2 down to 60% in the morning, repeat x-ray in the morning, unchanged is not slightly worsened from yesterday, patient otherwise comfortable, without any new complaints. She denies any chest pain, nausea, vomiting, abdominal pain or diarrhea. 06/11/19 Patient seen in the morning, remains on Vapotherm with 55% FiO2, no change from yesterday, without any complaints, had a repeat bedside swallow evaluation with drop in O2 saturation. 10 point review of system is negative except for above PHYSICAL EXAMINATION: VITAL SIGNS: Please see below. GENERAL: Frail, cachectic HEENT: Normocephalic, atraumatic, moist mucous membranes NECK: Supple CARDIOVASCULAR EXAMINATION: S1, S2, no murmurs RESPIRATORY EXAMINATION: Absent in the right lower lung, scattered rhonchi, no wheezing ABDOMINAL EXAMINATION: Soft, nontender, nondistended, positive bowel sounds EXTREMITIES: Range of motion intact SKIN: No rash NEUROLOGICAL EXAMINATION: no focal deficits PSYCHIATRIC EXAMINATION: Calm and cooperative LABORATORY DATA: See below. ASSESSMENT: 59-year-old female with past medical history of CVA, hypothyroidism is being admitted for failure to thrive a UTI. PLAN: 1. Aspiration pneumonia Likely has chronic microaspiration due to CVA, now with right lower lobe as piration pneumonia, remains unchanged on today's x-ray, FiO2 requirements down to 55% via Vapotherm, continue chest PT and hypertonic saline nebulizers, pro- calcitonin negative, will de-escalate/discontinue antibiotics within the next 24-48 hours, awaiting cultures, repeat bedside swallow eval resulted in oxygen desaturation, tentatively plan for cookie swallow following which we will discuss with healthcare proxy regarding PEG tube placement, nothing by mouth, making this IV fluids. 2. Severe protein malnutrition Chronic, has had dysphagia due to CVA, chronically aspirating with recent wor sening, nothing by mouth, will discuss PEG tube placement with healthcare proxy after cookie swallow. 3. CVA. Holding oral meds due to aspiration, if PEG tube placement will be delayed , then we will place an NG tube for medication. 4. Hypothyroidism. TSH 0.01, increased levothyroxine dose yesterday. DVT prophylaxis: Heparin subcutaneous. GI prophylaxis: Not needed VS, I&O, 24H, Fishbone Vital Signs/I&O Vital Signs Date Time Temp Pulse Resp B/P (MAP) Pulse Ox O2 Delivery O2 Flow Rate FiO2 06/11/19 16:08 98.1 88 24 141/78 (99) 94 HVNI-Vapotherm 35.0 50 I&O- Last 24 Hours up to 6 AM 06/11/19 06:00 Intake Total 2425 ml Balance 2425 ml Laboratory Data 24H LABS Laboratory Tests 2 06/10/19 18:26: Bedside Glucose (Misc Panel) 118H 06/11/19 04:48: Immature Granulocyte % (Auto) 0.4, Neutrophils (%) (Auto) 85.3H, Lymphocytes (%) (Auto) 8.8L, Monocytes (%) (Auto) 4.4, Eosinophils (%) (Auto) 0.7, Basophils (%) (Auto) 0.4, Neutrophils # (Auto) 9.8H, Lymphocytes # (Auto) 1.0L, Monocytes # (Auto) 0.5, Eosinophils # (Auto) 0.1, Basophils # (Auto) 0.1, Nucleated Red Blood Cells % (auto) 0.0, Anion Gap 4L, Glomerular Filtration Rate > 60.0, Calcium Level 8.2L 06/11/19 11:09: Vancomycin Level Trough 8.2L CBC/BMP Laboratory Tests 06/11/19 04:48 Microbiology Microbiology 06/09/19 Blood Culture - Preliminary, Resulted No Growth after 48 hours. All Specime... 06/09/19 Blood Culture - Preliminary, Resulted No Growth after 48 hours. All Specime... 06/06/19 Urine Culture - Final, Complete KAMALJIT ISIDRO MD Jun 11, 2019 17:10
[2019-06-11] MEDS: ATORVASTATIN 20 MG TAB PO SCH (20:27)
[2019-06-12] VITALS (12 sets, daily range): BP systolic 113–160; BP diastolic 77–95
[2019-06-12] MEDS: D5W/0.45% SODIUM CHLORIDE 1,000 ML IV SCH ×2 (00:14→19:56)
[2019-06-12] MEDS: SODIUM CHLORIDE 0.9% 3ML NEB SOLUTION FOR INHALATION INH SCH (01:16)
[2019-06-12] MEDS: MEROPENEM INJ 1 GM in IV 1 EA IV SCH (02:39)
[2019-06-12] MEDS: VANCOMYCIN HCL 750 MG, VIAL MATE ADAPTER 1 EACH in D5W 250 ML IV SCH (03:45)
[2019-06-12 05:19] LABS: BASO # 0.1 10^3/uL (0.0-0.2); EOS # 0.2 10^3/uL (0.0-0.5); EOS % 2.9 % (0.0-3.0); HEMATOCRIT 37.3 % (36.0-47.0); LYMPH # 1.5 10^3/uL (1.5-5.0); LYMPH % 17.8 % (24.0-44.0); MEAN CORPUSCULAR HGB CONC 34.9 g/dl (32.0-36.5); MEAN CORPUSCULAR VOLUME 88.8 fl (80.0-96.0); MONO # 0.4 10^3/uL (0.0-0.8); MONO % 4.5 % (0.0-5.0); NEUTROPHILS # 6.2 10^3/uL (1.5-8.5); NEUTROPHILS % 73.6 % (36.0-66.0); PLATELET COUNT, AUTOMATED 246 10^3/uL (150-450); WHITE BLOOD COUNT 8.4 10^3/uL (4.0-10.0)
[2019-06-12 05:48] LABS: BLOOD UREA NITROGEN 2 MG/DL (7-18); CARBON DIOXIDE LEVEL 29 MEQ/L (21-32); CHLORIDE LEVEL 102 MEQ/L (98-107); CREATININE FOR GFR 0.36 MG/DL (0.55-1.30); GLOMERULAR FILTRATION RATE > 60.0 (>51); GLUCOSE, FASTING 158 MG/DL (70-100); POTASSIUM SERUM 3.2 MEQ/L (3.5-5.1); SODIUM LEVEL 137 MEQ/L (136-145)
[2019-06-12 05:49] LABS: CALCIUM LEVEL 8.2 MG/DL (8.5-10.1)
[2019-06-12] MEDS: KCL 10MEQ/100ML SWI (KRUN) 10 MEQ in IV 1 EA IV SCH ×5 (06:13→11:28)
[2019-06-12] MEDS: SODIUM CHLORIDE 0.9% INJ 10 ML SYR IV SCH ×2 (06:14→19:09)
[2019-06-12] MEDS: SODIUM CHLORIDE HYPERTONIC 3% 15ML NEB SOL INH SCH ×4 (08:00→20:51)
--- NOTE | 2019-06-12 08:35 | REP ---
Portable chest x-ray: Single view. History: Mucous plugging. Comparison chest x-ray June 11, 2019 and June 10, 2019. Findings: A there is increased opacity in the lower half of the right hemithorax suggesting a combination of atelectasis and possibly effusion. Lung markings are improved in the remaining aerated right upper lobe region. The left lung remains clear. The findings are otherwise unchanged. There is a right-sided venous catheter in the axillary soft tissues again noted. Electronically Signed by Axel Barker MD 06/12/2019 08:26 A
--- NOTE | 2019-06-12 08:47 | REPVR ---
PROCEDURE INFORMATION: Exam: CT Head Without Contrast Exam date and time: 06/12/2019 7:00 AM Age: 59 years old Clinical indication: Altered mental status/memory loss; Additional info: R/O CVA TECHNIQUE: Imaging protocol: Computed tomography of the head without contrast. Radiation optimization: All CT scans at this facility use at least one of these dose optimization techniques: automated exposure control; mA and/or kV adjustment per patient size (includes targeted exams where dose is matched to clinical indication); or iterative reconstruction. Other technique: STROKE PROTOCOL was implemented. COMPARISON: CT Head without contrast 06/06/2019 1:36 PM FINDINGS: Brain: Comparison to the previous head CT exams from 04/08/2019 and 06/06/2019 show no significant interval change. Questionable endovascular coils are seen in the left [id number] and proximal left middle cerebral artery M1 region with encephalomalacia in the left frontal and temporo-parietal lobes together with colpocephaly/ex-vacuo dilatation of the left lateral ventricle, likely on the basis of an old chronic infarct in the left middle cerebral artery vascular territory, involving the left basal ganglia and left insula. No acute intracerebral abnormality or injury. No acute infarct or intracerebral bleed. Moderate patchy periventricular leukomalacia in both cerebral hemispheres, consistent with chronic underlying small vessel ischemic disease. [place] Stroke Program Early CT Score (ASPECTS score) = 10. Ventricles: Normal. No ventriculomegaly. Bones/joints: Unremarkable. No acute fracture. Sinuses: Fluid and mild mucosal thickening is present in the bilateral ethmoid sinuses and the sphenoid sinus. Mastoid air cells: Visualized mastoid air cells are well aerated. Soft tissues: Unremarkable. IMPRESSION: 1. Comparison to the previous head CT exams from 04/08/2019 and 06/06/2019 show no significant interval change. Questionable endovascular coils are seen in the left [id number] and proximal left middle cerebral artery M1 region with encephalomalacia in the left frontal and temporo-parietal lobes together with colpocephaly/ex-vacuo dilatation of the left lateral ventricle, likely on the basis of an old chronic infarct in the left middle cerebral artery vascular territory, involving the left basal ganglia and left insula. 2. No acute intracerebral abnormality or injury. No acute infarct or intracerebral bleed. 3. Moderate patchy periventricular leukomalacia in both cerebral hemispheres, consistent with chronic underlying small vessel ischemic disease. 4. [place] Stroke Program Early CT Score (ASPECTS score) = 10. 5. Fluid and mild mucosal thickening is present in the bilateral ethmoid sinuses and the sphenoid sinus. Electronically signed by: Nic Denney On 06/12/2019 08:47:41 AM
[2019-06-12] MEDS: VALPROIC ACID 250MG/5ML SOL ORAL SYRINGE *DRAW UP EXACT DOSE PO SCH ×2 (09:00→21:00)
[2019-06-12] MEDS: CLOPIDOGREL 75 MG TAB PO SCH (09:00)
[2019-06-12] MEDS: PREGABALIN 100 MG CAP (LYRICA) PO SCH ×3 (09:00→21:00)
[2019-06-12] MEDS: HEPARIN SOD (PORCINE) 5000 UNITS/ML VIAL (J1644 PER 1000UNITS) SC SCH ×2 (09:12→21:51)
[2019-06-12] MEDS: LEVOTHYROXINE 100 MCG (0.1MG) VIAL IV SCH (09:13)
[2019-06-12] MEDS: VALPROATE SOD INJ 500 MG in D5W 50 ML IV SCH (09:16)
[2019-06-12] MEDS: LevoFLOXacin IV 750 MG in IV 1 EA IV SCH (10:26)
--- NOTE | 2019-06-12 12:37 | CCN ---
DATE: 06/12/2019 The patient was seen and examined this morning during bedside rounds. Yesterday evening the patient was thought to have possible worsening of her baseline mental status. She was ordered for a head CT to evaluate for acute stroke overnight. In terms of her oxygenation, the patient has been improving and has been able to be weaned down on her vapotherapy settings. This morning she was weaned down to 25 liters a minute at 25% FiO2. She is also able to be positioned more on her back without having as much desaturation and she was previously. She also appears to be more awake and alert this morning, is able to answer questions with short phrases. She denies any significant chest pain. Has not had any worsening shortness of breath. Did not have any fevers overnight. When questioned about percutaneous endoscopic gastrostomy (PEG) tube, the patient is agreeable for PEG tube for feeding. She is more hesitant about a temporary nasogastric (NG) tube but if needed would be agreeable for it. PHYSICAL EXAM: Temperature 99.1, pulse 89, respirations 20, blood pressure 133/84, oxygen saturation sat 93% on vapotherapy at 25 liters a minute at 25% FiO2. General: The patient is a frail female, is lying in bed, is awake and alert and is not in any respiratory distress. Is not using accessory muscles for respiration. HEENT: Normocephalic, atraumatic. Pupils reactive to light bilaterally. Mucous membranes are moist. Neck is supple. Trachea is midline. There is no palpable adenopathy. Cardiovascular: Regular rate and rhythm. Normal S1, S2. Unable to appreciate any murmurs. Pulmonary: Diminished breath sounds on the right side with no significant wheezing, rales or rhonchi noted on the left. Abdomen: Soft, nontender, nondistended. There is no palpable mass. Extremities: There is no significant lower extremity noted bilaterally and no sacral edema. There is chronic muscle wasting noted. LABS: WBC 8.4, hemoglobin 13.0, platelets are 246. Chemistry: Sodium is 137, potassium 3.2, chloride is 102, bicarbonate 29, BUN 2, creatinine is 0.36, glucose is 158. Procalcitonin 0.07. IMAGING: Chest x-ray this morning shows consolidation in the right lower lobe with atelectasis and questionable effusion. There is some improved aeration in the right upper lobe. There is a right-sided midline noted. CT head compared to previous CT there is no significant interval change. There are possible endovascular coils in the left triple lumen and proximal left middle cerebral artery with encephalomalacia in the left frontal and temporal parietal lobes with colpocephaly/extraocular dilation of the left lateral ventricle likely due to an old chronic infarct in the left middle cerebral artery vascular territory involving left basal ganglia and left insula. No acute intracerebral abnormality or infarct. There is evidence of chronic underlying small vessel ischemic disease. ASSESSMENT AND PLAN: Ms. Aguilar is a 51-year female with history of multiple CVAs who at baseline is functionally limited with some expressive aphasia and chronic weakness. She was sent to the hospital for failure to thrive with increased fatigue and decreased oral intake. The patient has a history of chronic dysphagia and there was concern for aspiration for which she was being evaluated by speech and swallow. During her hospitalization she was noted have acute hypoxemic respiratory failure and respiratory distress with development of right lower lobe pneumonia likely secondary to aspiration. She was transferred to the intensive care unit (ICU) for management of her hypoxemic respiratory failure and started on Vapotherm. Acute hypoxemic respiratory failure in the setting of aspiration and a right lower lobe pneumonia. - The patient has been improving in terms of her oxygen requirements and was weaned down on Vapotherm to 25 liters a minute at 25% FiO2 this morning. Will transition her to nasal cannula oxygen supplementation with high-flow and bubble humidifier and continue to wean down as tolerated to maintain oxygen saturation above 90%. - Continue with chest PT with percussion vest and suctioning with nasotracheal suctioning as tolerated. - Continue with nebulizer treatments with her chest PT with saline nebulizers for mucus clearance. - The patient was started on broad-spectrum antibiotics with vancomycin and meropenem. Her cultures have been negative and her procalcitonin was 0.07. Would de-escalate her broad-spectrum antibiotics to Levaquin. - The patient has been nothing by mouth and has been evaluated again by speech and swallow. She was recommended for a cookie swallow evaluation. She has a history of chronic dysphagia as well as failure to thrive, and so suspect she would need a PEG tube for nutrition and can continue with followup with speech with evaluation about potential swallowing. Given her failure to thrive, however, suspect she does need PEG tube for her nutritional needs. Would get consult with surgery as patient is agreeable for PEG tube. She may need a NG tube temporarily for tube feeds depending on when she can get her surgery done. - The patient's Synthroid was adjusted by her primary team for her hypothyroidism as a thyroid-stimulating hormone (TSH) was low. - Continue with rest of home medications as per primary team. Deep venous thrombosis (DVT) prophylaxis with Heparin. Code status FULL CODE. Total critical care time spent, not including any procedures, approximately 30 minutes. Please do not hesitate to call if any further questions or concerns. FREDDY
[2019-06-12 13:31] LABS: MAGNESIUM LEVEL 1.8 MG/DL (1.8-2.4); POTASSIUM SERUM 4.1 MEQ/L (3.5-5.1)
[2019-06-12] MEDS ORDERED: MIDAZOLAM INJ 2 MG/2 ML VIAL (J2250) As Ordered ONE (14:00)
[2019-06-12] MEDS ORDERED: diphenhydrAMINE INJ 50MG/ML VIAL (J1200) As Ordered ONE (14:00)
[2019-06-12] MEDS ORDERED: LIDOCAINE 1% MDV 20ML VIAL As Ordered ONE ×2 (14:00→15:03)
[2019-06-12] MEDS ORDERED: fentaNYL 100 MCG/2 ML INJECTION (J3010) As Ordered ONE (14:00)
[2019-06-12] MEDS ORDERED: LIDOCAINE 2% JELLY 30 ML As Ordered ONE (14:02)
[2019-06-12] MEDS ORDERED: ISOVUE-300 61% 50ML VIAL (Q9967) As Ordered ONE (14:13)
[2019-06-12] MEDS ORDERED: GLUCAGON FOR INJ 1 MG VIAL (J1610) As Ordered ONE (14:18)
[2019-06-12] MEDS ORDERED: CLINDAMYCIN 600 MG/50 ML PREMIX BAG As Ordered ONE (14:22)
[2019-06-12] MEDS ORDERED: E-Z-PAQUE 96% w/w SUSP 176GM BTL As Ordered ONE (14:33)
--- NOTE | 2019-06-12 14:34 | IRMSE ---
[facility] IR Moderate Sedation Eval. Date and Time Date: Jun 12, 2019 Time: 14:33 ASA Classification ASA Classification: III-Severe systemic dis. Mallampati Score: II NPO: Yes Obstructive Sleep Apnea: No Interval Plan: moderate sedation WISAM PANCHAL MD Jun 12, 2019 14:34
--- NOTE | 2019-06-12 15:28 | POST-OPPD ---
Postoperative Procedure Note Date Of Procedure: Jun 12, 2019 Time Of Procedure: 15:26 PREOPERATIVE DIAGNOSIS: stroke. aspiration pneumonia POSTOPERATIVE DIAGNOSIS: same FINDINGS: normal stomach PROCEDURE: 18 F percutaneous gastrostomy placed. may use after 3 pm 06/13/19. Leave to gravity drainage until then. SURGEON: will ANESTHESIA: mod sed ESTIMATED BLOOD LOSS: < 5 ml COMPLICATIONS: none POSTOPERATIVE CONDITION: stable WISAM PANCHAL MD Jun 12, 2019 15:28
[2019-06-12] MEDS ORDERED: ACETAMINOPHEN 500 MG TAB PO PRN (16:00)
[2019-06-12] MEDS ORDERED: MAG SULF 1GM/100ML (MAG RUN) 1 GM in IV 1 EA IV ONE (16:00)
--- NOTE | 2019-06-12 17:20 | IPNPDOC ---
Date Seen The patient was seen on 06/12/19. Progress Note HISTORY OF PRESENT ILLNESS: 59-year-old female with past medical history of multiple CVAs and hypothyroidism presents from PCPs office for fatigue and failure to thrive. Patient was admitted in April 2019 for UTI, has very low mobility at baseline, requires [id number] help, which is provided by her friend and neighbor. Patient has expressive aphasia and weakness secondary to her strokes. Patient seen in the ED, unable to relate to me why her PCP sent her here, has no complaint at this time, reports she is at her baseline. As per ED physician. Her PCP believe that she has very poor oral intake, has lost weight and appears more fatigued from her baseline. Workup in the ED shows possible UTI, otherwise within normal limits. Patient denies any short of breath, chest pain, nausea, vomiting, abdominal pain or diarrhea. 06/07/19 Comfortable in bed, without any complaints, more alert compared to yesterday, appears to be at her baseline mentation, wishes to eat. 06/08/19 Patient comfortable in bed, no new complaints today, not tolerating oral intake, concerning for possible aspiration, wishes to make her neighbor her healthcare proxy, paperwork filled out. 06/09/19 Patient seen in the morning, requiring an extensive amount of supplemental oxygen to maintain adequate saturation, had multiple hypoxemic episodes overnight requiring deep suctioning with improvement in saturation, patient has been aspirating her oral secretions for the past 24-48 hours, likely has chronic microaspiration. Chest x-ray repeated in the morning shows white out of the right lower lung, likely due to aspiration/mucous plugging, patient requiring 100% FiO2 and despite that, PCO2 on ABG was 30, ICU was consulted for possible intubation. Had a discussion with patient's healthcare proxy, who wishes to keep the patient fell code for now, agreeable to endotracheal intubation and mechanical ventilation if needed. Patient reports mild dyspnea, otherwise at her baseline and without additional complaints. 06/10/19 Patient remains on Vapotherm, FiO2 down to 60% in the morning, repeat x-ray in the morning, unchanged is not slightly worsened from yesterday, patient otherwise comfortable, without any new complaints. She denies any chest pain, nausea, vomiting, abdominal pain or diarrhea. 06/11/19 Patient seen in the morning, remains on Vapotherm with 55% FiO2, no change from yesterday, without any complaints, had a repeat bedside swallow evaluation with drop in O2 saturation. 06/12/19 Patient with improvement in dyspnea and cough today, FiO2 of coronary stent at 25% via Vapotherm. Patient continues to fail swallow evaluation, is very frail and cachectic, due to chronic malnutrition, even if patient passes cookie swallow she will likely not be able to intake enough nutrition for her daily requirements, discussed PEG tube placement with patient and healthcare proxy. They are agreeable, contacted interventional radiology for percutaneous PEG tube placement, scheduled for later today. 10 point review of system is negative except for above PHYSICAL EXAMINATION: VITAL SIGNS: Please see below. GENERAL: Frail, cachectic HEENT: Normocephalic, atraumatic, moist mucous membranes NECK: Supple CARDIOVASCULAR EXAMINATION: S1, S2, no murmurs RESPIRATORY EXAMINATION: Improvement in aeration in the right side, scattered rhonchi, no wheezing ABDOMINAL EXAMINATION: Soft, nontender, nondistended, positive bowel sounds EXTREMITIES: Range of motion intact SKIN: No rash NEUROLOGICAL EXAMINATION: no focal deficits PSYCHIATRIC EXAMINATION: Calm and cooperative LABORATORY DATA: See below. ASSESSMENT: 59-year-old female with past medical history of CVA, hypothyroidism is being admitted for failure to thrive a UTI. PLAN: 1. Aspiration pneumonia Likely has chronic microaspiration due to CVA, now with right lower lobe aspiration pneumonia, x-ray slightly improved today, FiO2 requirements down to 25% via Vapotherm, continue chest PT and hypertonic saline nebulizers, pro- calcitonin negative, antibiotics down graded to Levaquin, cultures negative so far, patient has not had any form of nutrition in 5-6 days, discussed to placement, patient and healthcare proxy agreeable, scheduled for percutaneous PEG tube placement by interventional radiology later today. Continue gentle IV hydration. 2. Severe protein malnutrition Chronic, has had dysphagia due to CVA, chronically aspirating with recent worsening, nothing by mouth, PEG tube placement later today. 3. CVA. Holding oral meds due to aspiration, will start tomorrow via PEG tube. 4. Hypothyroidism. TSH 0.01, increased levothyroxine dose DVT prophylaxis: Heparin subcutaneous. GI prophylaxis: Not needed VS, I&O, 24H, Fishbone Vital Signs/I&O Vital Signs Date Time Temp Pulse Resp B/P (MAP) Pulse Ox O2 Delivery O2 Flow Rate FiO2 06/12/19 16:30 83 20 06/12/19 16:30 91 HVNI-Vapotherm 20.0 21 06/12/19 16:00 98.9 127/82 (97) I&O- Last 24 Hours up to 6 AM 06/12/19 06:00 Intake Total 2170 ml Balance 2170 ml Laboratory Data 24H LABS Laboratory Tests 2 06/12/19 05:06: Immature Granulocyte % (Auto) 0.2, Neutrophils (%) (Auto) 73.6H, Lymphocytes (%) (Auto) 17.8L, Monocytes (%) (Auto) 4.5, Eosinophils (%) (Auto) 2.9, Basophils (%) (Auto) 1.0, Neutrophils # (Auto) 6.2, Lymphocytes # (Auto) 1.5, Monocytes # (Auto) 0.4, Eosinophils # (Auto) 0.2, Basophils # (Auto) 0.1, Nucleated Red Blood Cells % (auto) 0.0, Anion Gap 6L, Glomerular Filtration Rate > 60.0, C alcium Level 8.2L 06/12/19 12:49: Magnesium Level 1.8 CBC/BMP Laboratory Tests 06/12/19 05:06 06/12/19 12:49 Microbiology Microbiology 06/09/19 Blood Culture - Preliminary, Resulted No Growth after 72 hours. All specime... 06/09/19 Blood Culture - Preliminary, Resulted No Growth after 72 hours. All specime... 06/06/19 Urine Culture - Final, Complete KAMALJIT ISIDRO MD Jun 12, 2019 17:20
[2019-06-12] MEDS: MORPHINE 2 MG/ML 1ML VIAL (J2270) IV PRN ×2 (17:47→23:37)
[2019-06-12] MEDS: ACETAMINOPHEN *IV* 1,000 MG in IV 1 EA IV PRN (18:22)
[2019-06-12] MEDS: ATORVASTATIN 20 MG TAB PO SCH (20:59)
[2019-06-12] MEDS ORDERED: LIDOCAINE 4% CREAM 5GM (LMX4) TOP ONE (22:15)
[2019-06-13] VITALS (9 sets, daily range): BP systolic 136–163; BP diastolic 88–102
[2019-06-13] MEDS: SODIUM CHLORIDE HYPERTONIC 3% 15ML NEB SOL INH SCH ×6 (00:47→18:30)
[2019-06-13] MEDS: ACETAMINOPHEN *IV* 1,000 MG in IV 1 EA IV PRN (04:52)
[2019-06-13 05:13] LABS: BASO # 0.1 10^3/uL (0.0-0.2); BASO % 0.8 % (0.0-1.0); EOS # 0.2 10^3/uL (0.0-0.5); EOS % 2.9 % (0.0-3.0); HEMATOCRIT 40.3 % (36.0-47.0); HEMOGLOBIN 13.5 g/dl (12.0-15.5); LYMPH # 1.6 10^3/uL (1.5-5.0); LYMPH % 24.8 % (24.0-44.0); MEAN CORPUSCULAR HEMOGLOBIN 30.2 pg (27.0-33.0); MEAN CORPUSCULAR HGB CONC 33.5 g/dl (32.0-36.5); MEAN CORPUSCULAR VOLUME 90.2 fl (80.0-96.0); MONO # 0.5 10^3/uL (0.0-0.8); MONO % 8.3 % (0.0-5.0); NEUTROPHILS % 62.9 % (36.0-66.0); PLATELET COUNT, AUTOMATED 250 10^3/uL (150-450); RED BLOOD COUNT 4.47 10^6/uL (4.00-5.40); WHITE BLOOD COUNT 6.3 10^3/uL (4.0-10.0)
[2019-06-13 05:39] LABS: BLOOD UREA NITROGEN 5 MG/DL (7-18); CALCIUM LEVEL 8.4 MG/DL (8.5-10.1); CARBON DIOXIDE LEVEL 27 MEQ/L (21-32); CHLORIDE LEVEL 102 MEQ/L (98-107); CREATININE FOR GFR 0.28 MG/DL (0.55-1.30); GLOMERULAR FILTRATION RATE > 60.0 (>51); GLUCOSE, FASTING 118 MG/DL (70-100); POTASSIUM SERUM 3.4 MEQ/L (3.5-5.1); SODIUM LEVEL 135 MEQ/L (136-145)
[2019-06-13] MEDS: SODIUM CHLORIDE 0.9% INJ 10 ML SYR IV SCH ×2 (06:04→18:22)
[2019-06-13] MEDS: PREGABALIN 100 MG CAP (LYRICA) PO SCH ×3 (07:04→22:46)
[2019-06-13] MEDS: VALPROIC ACID 250MG/5ML SOL ORAL SYRINGE *DRAW UP EXACT DOSE PO SCH ×2 (07:46→22:46)
[2019-06-13] MEDS: MORPHINE 2 MG/ML 1ML VIAL (J2270) IV PRN ×2 (08:32→14:45)
[2019-06-13] MEDS: LEVOTHYROXINE 100 MCG (0.1MG) VIAL IV SCH (08:34)
[2019-06-13] MEDS: KCL 10MEQ/100ML SWI (KRUN) 10 MEQ in IV 1 EA IV SCH ×4 (08:34→12:22)
[2019-06-13] MEDS: VALPROATE SOD INJ 500 MG in D5W 50 ML IV SCH (08:37)
[2019-06-13] MEDS: HEPARIN SOD (PORCINE) 5000 UNITS/ML VIAL (J1644 PER 1000UNITS) SC SCH ×2 (08:39→22:45)
[2019-06-13] MEDS: LevoFLOXacin IV 750 MG in IV 1 EA IV SCH (09:48)
[2019-06-13] MEDS ORDERED: VARIBAR NECTAR 40% w/v 240ML SUSP BTL As Ordered ONE (11:22)
[2019-06-13] MEDS ORDERED: VARIBAR PUDDING 40% w/v 230ML TUBE As Ordered ONE (11:22)
[2019-06-13] MEDS ORDERED: BARIUM SULFATE 700 MG TABLET (E-Z-DISK) As Ordered ONE (11:23)
[2019-06-13] MEDS ORDERED: E-Z-PAQUE 96% w/w SUSP 176GM BTL As Ordered ONE (11:23)
[2019-06-13] MEDS: D5W/0.45% SODIUM CHLORIDE 1,000 ML IV SCH (13:09)
[2019-06-13] MEDS: SCOPOLAMINE 1MG TRANSDERMAL PATCH TOP SCH (17:09)
[2019-06-13] MEDS: CLOPIDOGREL 75 MG TAB PO SCH (17:09)
--- NOTE | 2019-06-13 18:41 | IPNPDOC ---
Date Seen The patient was seen on 06/13/19. Progress Note HISTORY OF PRESENT ILLNESS: 59-year-old female with past medical history of multiple CVAs and hypothyroidism presents from PCPs office for fatigue and failure to thrive. Patient was admitted in April 2019 for UTI, has very low mobility at baseline, requires [id number]-[id number]-hintb help, which is provided by her friend and neighbor. Patient has expressive aphasia and weakness secondary to her strokes. Patient seen in the ED, unable to relate to me why her PCP sent her here, has no complaint at this time, reports she is at her baseline. As per ED physician. Her PCP believe that she has very poor oral intake, has lost weight and appears more fatigued from her baseline. Workup in the ED shows possible UTI, otherwise within normal limits. Patient denies any short of breath, chest pain, nausea, vomiting, abdominal pain or diarrhea. 06/07/19 Comfortable in bed, without any complaints, more alert compared to yesterday, appears to be at her baseline mentation, wishes to eat. 06/08/19 Patient comfortable in bed, no new complaints today, not tolerating oral intake, concerning for possible aspiration, wishes to make her neighbor her healthcare proxy, paperwork filled out. 06/09/19 Patient seen in the morning, requiring an extensive amount of supplemental oxygen to maintain adequate saturation, had multiple hypoxemic episodes overnight requiring deep suctioning with improvement in saturation, patient has been aspirating her oral secretions for the past 24-48 hours, likely has chronic microaspiration. Chest x-ray repeated in the morning shows white out of the right lower lung, likely due to aspiration/mucous plugging, patient requiring 100% FiO2 and despite that, PCO2 on ABG was 30, ICU was consulted for possible intubation. Had a discussion with patient's healthcare proxy, who wishes to keep the patient fell code for now, agreeable to endotracheal intubation and mechanical ventilation if needed. Patient reports mild dyspnea, otherwise at her baseline and without additional complaints. 06/10/19 Patient remains on Vapotherm, FiO2 down to 60% in the morning, repeat x-ray in the morning, unchanged is not slightly worsened from yesterday, patient otherwise comfortable, without any new complaints. She denies any chest pain, nausea, vomiting, abdominal pain or diarrhea. 06/11/19 Patient seen in the morning, remains on Vapotherm with 55% FiO2, no change from yesterday, without any complaints, had a repeat bedside swallow evaluation with drop in O2 saturation. 06/12/19 Patient with improvement in dyspnea and cough today, FiO2 of coronary stent at 25% via Vapotherm. Patient continues to fail swallow evaluation, is very frail and cachectic, due to chronic malnutrition, even if patient passes cookie swallow she will likely not be able to intake enough nutrition for her daily requirements, discussed PEG tube placement with patient and healthcare proxy. They are agreeable, contacted interventional radiology for percutaneous PEG tube placement, scheduled for later today. 06/13/19 Patient seen in the morning, reports abdominal pain at the PEG site, no other complaints. FiO2 requirements down to 21% via Vapotherm. 10 point review of system is negative except for above PHYSICAL EXAMINATION: VITAL SIGNS: Please see below. GENERAL: Frail, cachectic HEENT: Normocephalic, atraumatic, moist mucous membranes NECK: Supple CARDIOVASCULAR EXAMINATION: S1, S2, no murmurs RESPIRATORY EXAMINATION: Improvement in aeration in the right side, scattered rhonchi, no wheezing ABDOMINAL EXAMINATION: Soft, mild tenderness to palpation, PEG tube in place, nondistended, positive bowel sounds EXTREMITIES: Range of motion intact SKIN: No rash NEUROLOGICAL EXAMINATION: no focal deficits PSYCHIATRIC EXAMINATION: Calm and cooperative LABORATORY DATA: See below. ASSESSMENT: 59-year-old female with past medical history of CVA, hypothyroidism is being admitted for failure to thrive a UTI. PLAN: 1. Aspiration pneumonia Right lower lobe consolidation/mucous plugging improved with chest PT, hypertonic saline nebs and antibiotics. Patient doing well on nasal cannula, downgrade to MedSurg. Patient underwent PEG tube placement yesterday, will start tube feeds today, discontinue IV fluids. 2. Severe protein malnutrition Chronic, has had dysphagia due to CVA, chronically aspirating with recent worsening, nothing by mouth, start Jevity 1.5, 50 mL's per hour with free water flushes. 3. CVA. Restart Plavix and statin via PEG tube 4. Hypothyroidism. TSH 0.01, increased levothyroxine dose DVT prophylaxis: Heparin subcutaneous. GI prophylaxis: Not needed VS, I&O, 24H, Fishbone Vital Signs/I&O Vital Signs Date Time Temp Pulse Resp B/P (MAP) Pulse Ox O2 Delivery O2 Flow Rate FiO2 2/7/20 14:55 22 Room Air 06/13/19 14:45 2.0 06/13/19 14:05 97.0 99 150/102 (118) 95 06/13/19 09:00 21 I&O- Last 24 Hours up to 6 AM 06/13/19 06:00 Intake Total 2870 ml Output Total 800 ml Balance 2070 ml Laboratory Data 24H LABS Laboratory Tests 2 06/13/19 04:53: Immature Granulocyte % (Auto) 0.3, Neutrophils (%) (Auto) 62.9, Lymphocytes (%) (Auto) 24.8, Monocytes (%) (Auto) 8.3H, Eosinophils (%) (Auto) 2.9, Basophils (%) (Auto) 0.8, Neutrophils # (Auto) 4.0, Lymphocytes # (Auto) 1.6, Monocytes # (Auto) 0.5, Eosinophils # (Auto) 0.2, Basophils # (Auto) 0.1, Nucleated Red Blood Cells % (auto) 0.0, Anion Gap 6L, Glomerular Filtration Rate > 60.0, Calcium Level 8.4L CBC/BMP Laboratory Tests 06/13/19 04:53 Microbiology Microbiology 06/09/19 Blood Culture - Preliminary, Resulted No Growth after 72 hours. All specime... 06/09/19 Blood Culture - Preliminary, Resulted No Growth after 72 hours. All specime... 06/06/19 Urine Culture - Final, Complete KAMALJIT ISIDRO MD Jun 13, 2019 18:41
[2019-06-13] MEDS: ATORVASTATIN 20 MG TAB PO SCH (22:46)
[2019-06-13] MEDS: traMADol 50 MG TAB PO PRN (22:47)
[2019-06-14] MEDS: SODIUM CHLORIDE HYPERTONIC 3% 15ML NEB SOL INH SCH ×6 (00:35→19:49)
[2019-06-14] MEDS: SODIUM CHLORIDE 0.9% INJ 10 ML SYR IV SCH ×2 (05:27→16:54)
[2019-06-14] MEDS: traMADol 50 MG TAB PO PRN ×2 (05:28→12:17)
[2019-06-14 06:00] VITALS: BP 117/75
[2019-06-14 07:07] LABS: BASO # 0.1 10^3/uL (0.0-0.2); BASO % 1.1 % (0.0-1.0); EOS # 0.2 10^3/uL (0.0-0.5); HEMATOCRIT 44.4 % (36.0-47.0); HEMOGLOBIN 14.7 g/dl (12.0-15.5); LYMPH # 2.5 10^3/uL (1.5-5.0); LYMPH % 29.3 % (24.0-44.0); MEAN CORPUSCULAR HEMOGLOBIN 29.9 pg (27.0-33.0); MEAN CORPUSCULAR HGB CONC 33.1 g/dl (32.0-36.5); MEAN CORPUSCULAR VOLUME 90.4 fl (80.0-96.0); MONO # 1.2 10^3/uL (0.0-0.8); MONO % 14.4 % (0.0-5.0); NEUTROPHILS # 4.5 10^3/uL (1.5-8.5); NEUTROPHILS % 52.8 % (36.0-66.0); PLATELET COUNT, AUTOMATED 350 10^3/uL (150-450); RED BLOOD COUNT 4.91 10^6/uL (4.00-5.40); WHITE BLOOD COUNT 8.4 10^3/uL (4.0-10.0)
[2019-06-14 07:41] LABS: BLOOD UREA NITROGEN 10 MG/DL (7-18); CALCIUM LEVEL 8.6 MG/DL (8.5-10.1); CARBON DIOXIDE LEVEL 27 MEQ/L (21-32); CHLORIDE LEVEL 103 MEQ/L (98-107); CREATININE FOR GFR 0.41 MG/DL (0.55-1.30); GLOMERULAR FILTRATION RATE > 60.0 (>51); GLUCOSE, FASTING 115 MG/DL (70-100); POTASSIUM SERUM 3.9 MEQ/L (3.5-5.1); SODIUM LEVEL 137 MEQ/L (136-145)
[2019-06-14 09:00] VITALS: O2SAT 92
[2019-06-14] MEDS: LevoFLOXacin IV 750 MG in IV 1 EA IV SCH (09:31)
[2019-06-14] MEDS: VALPROIC ACID 250MG/5ML SOL ORAL SYRINGE *DRAW UP EXACT DOSE PO SCH (09:37)
[2019-06-14] MEDS: HEPARIN SOD (PORCINE) 5000 UNITS/ML VIAL (J1644 PER 1000UNITS) SC SCH ×2 (09:42→20:13)
[2019-06-14] MEDS: CLOPIDOGREL 75 MG TAB PO SCH (09:42)
[2019-06-14] MEDS: PREGABALIN 100 MG CAP (LYRICA) PO SCH (09:42)
[2019-06-14] MEDS: MORPHINE 2 MG/ML 1ML VIAL (J2270) IV PRN ×2 (10:09→16:53)
[2019-06-14] MEDS: LEVOTHYROXINE 100 MCG (0.1MG) VIAL IV SCH (10:27)
--- NOTE | 2019-06-14 11:10 | REP ---
Clinical: Abdominal pain. Technique: Axial noncontrast images from the lung bases to the pubic symphysis with coronal and sagittal re-formations. Comparison: 04/08/2019. Findings: Consolidations and partial collapse involving the visualized right upper lobe, right middle lobe, and right lower lobe noted along with moderate pleural effusion. Associated volume loss with mild ipsilateral mediastinal shift noted. Minuscule amount of pneumoperitoneum identified anterior to the liver which may be secondary to prior instrumentation and percutaneous gastrostomy tube placement. Liver, spleen, pancreas, bilateral adrenal glands and kidneys are relatively normal for noncontrast evaluation. Evidence of prior cholecystectomy. Small and large bowel without obstruction or acute inflammatory process. Pelvis demonstrates normal bladder and age-appropriate uterus/adnexa. Small amount of free fluid in the pelvis is nonspecific. Abdominal aorta demonstrates atherosclerotic changes without aneurysm. Musculoskeletal structures demonstrate age-related degenerative change. Impression: 1. Right-sided pleuroparenchymal changes. 2. A minuscule amount of pneumoperitoneum likely related to recent PEG tube placement. 3. No obvious acute abdominopelvic pathology otherwise appreciated. Electronically Signed by Ron Willett MD 06/14/2019 11:01 A
[2019-06-14] MEDS: VALPROATE SOD INJ 500 MG in D5W 50 ML IV SCH (11:47)
--- NOTE | 2019-06-14 11:53 | IPNPDOC ---
Date Seen The patient was seen on 06/14/19. Progress Note HISTORY OF PRESENT ILLNESS: 59-year-old female with past medical history of multiple CVAs and hypothyroidism presents from PCPs office for fatigue and failure to thrive. Patient was admitted in April 2019 for UTI, has very low mobility at baseline, requires [id number] help, which is provided by her friend and neighbor. Patient has expressive aphasia and weakness secondary to her strokes. Patient seen in the ED, unable to relate to me why her PCP sent her here, has no complaint at this time, reports she is at her baseline. As per ED physician. Her PCP believe that she has very poor oral intake, has lost weight and appears more fatigued from her baseline. Workup in the ED shows possible UTI, otherwise within normal limits. Patient denies any short of breath, chest pain, nausea, vomiting, abdominal pain or diarrhea. 06/07/19 Comfortable in bed, without any complaints, more alert compared to yesterday, appears to be at her baseline mentation, wishes to eat. 06/08/19 Patient comfortable in bed, no new complaints today, not tolerating oral intake, concerning for possible aspiration, wishes to make her neighbor her healthcare proxy, paperwork filled out. 06/09/19 Patient seen in the morning, requiring an extensive amount of supplemental oxygen to maintain adequate saturation, had multiple hypoxemic episodes overnight requiring deep suctioning with improvement in saturation, patient has been aspirating her oral secretions for the past 24-48 hours, likely has chronic microaspiration. Chest x-ray repeated in the morning shows white out of the right lower lung, likely due to aspiration/mucous plugging, patient requiring 100% FiO2 and despite that, PCO2 on ABG was 30, ICU was consulted for possible intubation. Had a discussion with patient's healthcare proxy, who wishes to keep the patient fell code for now, agreeable to endotracheal intubation and mechanical ventilation if needed. Patient reports mild dyspnea, otherwise at her baseline and without additional complaints. 06/10/19 Patient remains on Vapotherm, FiO2 down to 60% in the morning, repeat x-ray in the morning, unchanged is not slightly worsened from yesterday, patient otherwise comfortable, without any new complaints. She denies any chest pain, nausea, vomiting, abdominal pain or diarrhea. 06/11/19 Patient seen in the morning, remains on Vapotherm with 55% FiO2, no change from yesterday, without any complaints, had a repeat bedside swallow evaluation with drop in O2 saturation. 06/12/19 Patient with improvement in dyspnea and cough today, FiO2 of coronary stent at 25% via Vapotherm. Patient continues to fail swallow evaluation, is very frail and cachectic, due to chronic malnutrition, even if patient passes cookie swallow she will likely not be able to intake enough nutrition for her daily requirements, discussed PEG tube placement with patient and healthcare proxy. They are agreeable, contacted interventional radiology for percutaneous PEG tube placement, scheduled for later today. 06/13/19 Patient seen in the morning, reports abdominal pain at the PEG site, no other complaints. FiO2 requirements down to 21% via Vapotherm. 06/14/19 Patient is seen in the morning, on room air, appears in discomfort, reports pain at PEG tube site, repeat CT abdomen and pelvis today without acute pathology. 10 point review of system is negative except for above PHYSICAL EXAMINATION: VITAL SIGNS: Please see below. GENERAL: Frail, cachectic HEENT: Normocephalic, atraumatic, moist mucous membranes NECK: Supple CARDIOVASCULAR EXAMINATION: S1, S2, no murmurs RESPIRATORY EXAMINATION: Diminished on the right side, scattered rhonchi, no wheezing ABDOMINAL EXAMINATION: Soft, moderate tenderness to palpation, PEG tube in place, nondistended, positive bowel sounds EXTREMITIES: Range of motion intact SKIN: No rash NEUROLOGICAL EXAMINATION: no focal deficits PSYCHIATRIC EXAMINATION: Calm and cooperative LABORATORY DATA: See below. ASSESSMENT: 59-year-old female with past medical history of CVA, hypothyroidism is being admitted for failure to thrive a UTI. PLAN: 1. Aspiration pneumonia Right lower lobe consolidation/mucous plugging improved with chest PT, hypertonic saline nebs and antibiotics. Patient now on room air, continues to have right lower lobe consolidation/atelectasis on repeat imaging today, continue hypertonic saline nebs and chest PT. 2. Severe protein malnutrition Chronic, has had dysphagia due to CVA, chronically aspirating with recent worsening, nothing by mouth, PEG tube placed, continue tube feeds, scheduled for cookie swallow on Sunday. 3. CVA. Continue Plavix and statin via PEG tube 4. Hypothyroidism. TSH 0.01, increased levothyroxine dose DVT prophylaxis: Heparin subcutaneous. GI prophylaxis: Not needed VS, I&O, 24H, Fishbone Vital Signs/I&O Vital Signs Date Time Temp Pulse Resp B/P (MAP) Pulse Ox O2 Delivery O2 Flow Rate FiO2 06/14/19 10:20 20 Room Air 06/14/19 06:16 2.0 06/14/19 06:00 97.7 94 117/75 (89) 91 06/13/19 09:00 21 I&O- Last 24 Hours up to 6 AM 06/14/19 06:00 Intake Total 850 ml Output Total 1401 ml Balance -551 ml Laboratory Data 24H LABS Laboratory Tests 2 06/14/19 06:54: Immature Granulocyte % (Auto) 0.4, Neutrophils (%) (Auto) 52.8, Lymphocytes (%) (Auto) 29.3, Monocytes (%) (Auto) 14.4H, Eosinophils (%) (Auto) 2.0, Basophils (%) (Auto) 1.1H, Neutrophils # (Auto) 4.5, Lymphocytes # (Auto) 2.5, Monocytes # (Auto) 1.2H, Eosinophils # (Auto) 0.2, Basophils # (Auto) 0.1, Nucleated Red Blood Cells % (auto) 0.0, Anion Gap 7L, Glomerular Filtration Rate > 60.0, Calcium Level 8.6 CBC/BMP Laboratory Tests 06/14/19 06:54 Microbiology Microbiology 06/09/19 Blood Culture - Preliminary, Resulted No Growth after 72 hours. All specime... 06/09/19 Blood Culture - Preliminary, Resulted No Growth after 72 hours. All specime... 06/06/19 Urine Culture - Final, Complete KAMALJIT ISIDRO MD Jun 14, 2019 11:53
[2019-06-14] MEDS ORDERED: ACETAMINOPHEN TAB 650MG DOSE (2X325MG) PO PRN (12:00)
[2019-06-14 14:00] VITALS: BP 104/74
[2019-06-14] MEDS: SODIUM CHLORIDE 0.9% INJ 10 ML SYR IV PRN ×2 (14:41→21:37)
[2019-06-14] MEDS ORDERED: PROCHLORPERAZINE 5 MG TAB (S0183) GT PRN (16:00)
[2019-06-14] MEDS ORDERED: LORATADINE 10 MG TAB GT PRN (16:00)
[2019-06-14] MEDS ORDERED: RIZATRIPTAN BENZOATE 10 MG TAB GT PRN (16:00)
[2019-06-14] MEDS ORDERED: SIMETHICONE 80 MG CHEW TAB PO SCH (16:00)
[2019-06-14] MEDS: SIMETHICONE 80 MG CHEW TAB GT SCH ×2 (16:45→20:13)
[2019-06-14] MEDS: PREGABALIN 100 MG CAP (LYRICA) GT SCH ×2 (16:45→20:13)
[2019-06-14] MEDS ORDERED: traMADol 50 MG TAB GT PRN (17:45)
[2019-06-14] MEDS: FLUCONAZOLE 100 MG in IV 1 EA IV SCH (20:12)
[2019-06-14] MEDS: VALPROIC ACID 250MG/5ML SOL ORAL SYRINGE *DRAW UP EXACT DOSE GT SCH (20:12)
[2019-06-14] MEDS: ATORVASTATIN 20 MG TAB GT SCH (20:13)
[2019-06-14 22:00] VITALS: BP 114/90
[2019-06-15] VITALS (10 sets, daily range): BP systolic 88–110; BP diastolic 54–81; O2SAT 92–93
[2019-06-15] MEDS: SODIUM CHLORIDE HYPERTONIC 3% 15ML NEB SOL INH SCH ×6 (03:36→19:41)
[2019-06-15] MEDS ORDERED: LEVOTHYROXINE 25MCG TABLET (0.025MG) PO SCH (06:00)
[2019-06-15] MEDS ORDERED: LEVOTHYROXINE 150MCG TABLET (0.15MG) PO SCH (06:00)
[2019-06-15] MEDS: LEVOTHYROXINE 25MCG TABLET (0.025MG) GT SCH (06:01)
[2019-06-15] MEDS: LEVOTHYROXINE 150MCG TABLET (0.15MG) GT SCH (06:01)
[2019-06-15] MEDS: SODIUM CHLORIDE 0.9% INJ 10 ML SYR IV SCH ×2 (06:02→17:54)
[2019-06-15 06:15] LABS: HEMATOCRIT 39.5 % (36.0-47.0); HEMOGLOBIN 13.2 g/dl (12.0-15.5); MEAN CORPUSCULAR HEMOGLOBIN 30.4 pg (27.0-33.0); MEAN CORPUSCULAR HGB CONC 33.4 g/dl (32.0-36.5); PLATELET COUNT, AUTOMATED 417 10^3/uL (150-450); RED BLOOD COUNT 4.34 10^6/uL (4.00-5.40); WHITE BLOOD COUNT 11.5 10^3/uL (4.0-10.0)
[2019-06-15 06:28] LABS: BLOOD UREA NITROGEN 18 MG/DL (7-18); CALCIUM LEVEL 8.6 MG/DL (8.5-10.1); CARBON DIOXIDE LEVEL 30 MEQ/L (21-32); CHLORIDE LEVEL 102 MEQ/L (98-107); CREATININE FOR GFR 0.41 MG/DL (0.55-1.30); GLOMERULAR FILTRATION RATE > 60.0 (>51); GLUCOSE, FASTING 120 MG/DL (70-100); PHOSPHORUS LEVEL 3.5 MG/DL (2.5-4.9); POTASSIUM SERUM 3.8 MEQ/L (3.5-5.1); SODIUM LEVEL 140 MEQ/L (136-145)
[2019-06-15] MEDS ORDERED: NS 500 ML IV ONE ×2 (10:15→18:00)
[2019-06-15] MEDS: LevoFLOXacin IV 750 MG in IV 1 EA IV SCH (10:28)
[2019-06-15] MEDS: SIMETHICONE 80 MG CHEW TAB GT SCH ×3 (10:29→20:09)
[2019-06-15] MEDS: CLOPIDOGREL 75 MG TAB GT SCH (10:29)
[2019-06-15] MEDS: VALPROIC ACID 250MG/5ML SOL ORAL SYRINGE *DRAW UP EXACT DOSE GT SCH ×2 (10:29→20:11)
[2019-06-15] MEDS: PREGABALIN 100 MG CAP (LYRICA) GT SCH ×3 (10:29→20:08)
[2019-06-15] MEDS: HEPARIN SOD (PORCINE) 5000 UNITS/ML VIAL (J1644 PER 1000UNITS) SC SCH ×2 (10:30→20:08)
[2019-06-15] MEDS: ACETAMINOPHEN 325 MG/10.15 ML UDC GT PRN ×2 (10:36→16:11)
[2019-06-15] MEDS ORDERED: NS 1,000 ML IV ONE (16:00)
--- NOTE | 2019-06-15 16:57 | REP ---
Clinical: Pneumonia. Comparison: 06/12/2019. Findings: Large consolidation involves nearly the entire right lung is increased from prior examination. Left hemithorax is well-aerated and relatively clear although minimal medial left basilar atelectasis cannot be excluded. No pneumothorax. Visualized portions of the mediastinum and cardiac silhouette are stable. Skeletal structures are stable. PICC line identified with its tip at the level of the axillary vein. Impression: Large increasing right sided consolidation. Electronically Signed by Ron Willett MD 06/15/2019 04:48 P
[2019-06-15] MEDS: MEROPENEM INJ 1 GM in IV 1 EA IV SCH (17:04)
[2019-06-15] MEDS ORDERED: VANCOMYCIN HCL 1,000 MG, VIAL MATE ADAPTER 1 EACH in D5W 250 ML IV ONE (18:00)
[2019-06-15] MEDS: NS 1,000 ML IV SCH (18:31)
--- NOTE | 2019-06-15 19:51 | REPVR ---
PROCEDURE INFORMATION: Exam: CT Chest Without Contrast Exam date and time: 06/15/2019 6:56 PM Age: 59 years old Clinical indication: Condition or disease; Lung condition and disease; Pneumonia; Aspiration; Additional info: Aspiration pneumonia, assess for developement of empyema TECHNIQUE: Imaging protocol: Computed tomography of the chest without contrast. 3D rendering: MIP and/or 3D reconstructed images were created by the technologist. Radiation optimization: All CT scans at this facility use at least one of these dose optimization techniques: automated exposure control; mA and/or kV adjustment per patient size (includes targeted exams where dose is matched to clinical indication); or iterative reconstruction. COMPARISON: CT Chest without contrast 04/28/2016 2:12 PM FINDINGS: Lungs: A patchy infiltrate at the left lung base may represent atelectasis or small focus of pneumonitis. Atelectasis left lung base. Relative hyperexpansion of the left lobe secondary to atelectasis in the right hemithorax. Pleural space: Moderate right pleural effusion. Consolidated compressed lung in the right upper lobe, right middle lobe and right lower lobes associated with volume loss including shift of the heart mediastinal structures to the right. Air bronchograms demonstrated in the right upper lobe. There is occlusion of the bronchus to the right upper lobe, right mainstem bronchus and bronchus intermedius, findings suspect for the presence of neoplasm. Heart: There is mild atherosclerotic calcification of the coronary arteries. Aorta: There is fusiform dilatation of the ascending thoracic aorta which measures 3.9 cm. maximally. There is no saccular component. Lymph nodes: Unremarkable. No enlarged lymph nodes. Diaphragm: Large eventration right hemidiaphragm. Gallbladder and bile ducts: Cholecystectomy. Bones/joints: The spine demonstrates mild degenerative changes. Dextroscoliosis. Soft tissues: Unremarkable. IMPRESSION: 1. Moderate right pleural effusion. Consolidated compressed lung in the right upper lobe, right middle lobe and right lower lobes associated with volume loss including shift of the heart mediastinal structures to the right. Air bronchograms demonstrated in the right upper lobe. There is occlusion of the bronchus to the right upper lobe, right mainstem bronchus and bronchus intermedius, findings suspect for the presence of neoplasm. 2. A patchy infiltrate at the left lung base may represent atelectasis or small focus of pneumonitis. 3. There is fusiform dilatation of the ascending thoracic aorta which measures 3.9 cm. maximally. There is no saccular component. Electronically signed by: Panda Garcia On 06/15/2019 19:51:29 PM
[2019-06-15] MEDS: ATORVASTATIN 20 MG TAB GT SCH (20:08)
[2019-06-15] MEDS: FLUCONAZOLE 100 MG in IV 1 EA IV SCH (20:09)
--- NOTE | 2019-06-15 22:11 | IPNPDOC ---
Date Seen The patient was seen on 06/15/19. Progress Note HISTORY OF PRESENT ILLNESS: 59-year-old female with past medical history of multiple CVAs and hypothyroidism presents from PCPs office for fatigue and failure to thrive. Patient was admitted in April 2019 for UTI, has very low mobility at baseline, requires [id number] help, which is provided by her friend and neighbor. Patient has expressive aphasia and weakness secondary to her strokes. Patient seen in the ED, unable to relate to me why her PCP sent her here, has no complaint at this time, reports she is at her baseline. As per ED physician. Her PCP believe that she has very poor oral intake, has lost weight and appears more fatigued from her baseline. Workup in the ED shows possible UTI, otherwise within normal limits. Patient denies any short of breath, chest pain, nausea, vomiting, abdominal pain or diarrhea. 06/07/19 Comfortable in bed, without any complaints, more alert compared to yesterday, appears to be at her baseline mentation, wishes to eat. 06/08/19 Patient comfortable in bed, no new complaints today, not tolerating oral intake, concerning for possible aspiration, wishes to make her neighbor her healthcare proxy, paperwork filled out. 06/09/19 Patient seen in the morning, requiring an extensive amount of supplemental oxygen to maintain adequate saturation, had multiple hypoxemic episodes overnight requiring deep suctioning with improvement in saturation, patient has been aspirating her oral secretions for the past 24-48 hours, likely has chronic microaspiration. Chest x-ray repeated in the morning shows white out of the right lower lung, likely due to aspiration/mucous plugging, patient requiring 100% FiO2 and despite that, PCO2 on ABG was 30, ICU was consulted for possible intubation. Had a discussion with patient's healthcare proxy, who wishes to keep the patient fell code for now, agreeable to endotracheal intubation and mechanical ventilation if needed. Patient reports mild dyspnea, otherwise at her baseline and without additional complaints. 06/10/19 Patient remains on Vapotherm, FiO2 down to 60% in the morning, repeat x-ray in the morning, unchanged is not slightly worsened from yesterday, patient otherwise comfortable, without any new complaints. She denies any chest pain, nausea, vomiting, abdominal pain or diarrhea. 06/11/19 Patient seen in the morning, remains on Vapotherm with 55% FiO2, no change from yesterday, without any complaints, had a repeat bedside swallow evaluation with drop in O2 saturation. 06/12/19 Patient with improvement in dyspnea and cough today, FiO2 of coronary stent at 25% via Vapotherm. Patient continues to fail swallow evaluation, is very frail and cachectic, due to chronic malnutrition, even if patient passes cookie swallow she will likely not be able to intake enough nutrition for her daily requirements, discussed PEG tube placement with patient and healthcare proxy. They are agreeable, contacted interventional radiology for percutaneous PEG tube placement, scheduled for later today. 06/13/19 Patient seen in the morning, reports abdominal pain at the PEG site, no other complaints. FiO2 requirements down to 21% via Vapotherm. 06/14/19 Patient is seen in the morning, on room air, appears in discomfort, reports pain at PEG tube site, repeat CT abdomen and pelvis today without acute pathology. 06/15/19 Patient seen in the morning, pain significantly improved today, appeared fatigued in the morning. Patient given IV fluids during the day, slightly hypotensive and tachycardic in the afternoon, given 1.5 L normal saline bolus with improvement in heart rate and blood pressure, significant improvement in mentation and alertness, clinically stable, without complaints. 10 point review of system is negative except for above PHYSICAL EXAMINATION: VITAL SIGNS: Please see below. GENERAL: Frail, cachectic HEENT: Normocephalic, atraumatic, moist mucous membranes NECK: Supple CARDIOVASCULAR EXAMINATION: S1, S2, no murmurs RESPIRATORY EXAMINATION: Severely diminished on the right side, scattered rhonchi, no wheezing ABDOMINAL EXAMINATION: Soft, minimal tenderness to palpation, PEG tube in place, nondistended, positive bowel sounds EXTREMITIES: Range of motion intact SKIN: No rash NEUROLOGICAL EXAMINATION: no focal deficits PSYCHIATRIC EXAMINATION: Calm and cooperative LABORATORY DATA: See below. ASSESSMENT: 59-year-old female with past medical history of CVA, hypothyroidism is being admitted for failure to thrive a UTI. PLAN: 1. Aspiration pneumonia CT scan of chest shows worsening consolidation, pleural effusion and atelectasis, has not been receiving chest PT due to lack of equipment, discussed the importance of chest PT with RN and respiratory therapist, continue hyperton ic saline nebs, changed antibiotics to vancomycin and Merrem due to spiking a temp on Levaquin with worsening right lung collapse/consolidation. Continues to require minimal supplemental oxygen, clinically asymptomatic, stable at this time, consider pulmonary consult if no improvement with chest PT over the next 24 hours. 2. Severe protein malnutrition Chronic, has had dysphagia due to CVA, chronically aspirating with recent worsening, nothing by mouth, PEG tube placed, continue tube feeds, scheduled for cookie swallow on Sunday. 3. CVA. Continue Plavix and statin via PEG tube 4. Hypothyroidism. TSH 0.01, increased levothyroxine dose DVT prophylaxis: Heparin subcutaneous. GI prophylaxis: Not needed VS, I&O, 24H, Fishbone Vital Signs/I&O Vital Signs Date Time Temp Pulse Resp B/P (MAP) Pulse Ox O2 Delivery O2 Flow Rate FiO2 06/15/19 18:40 103 94/54 (67) 06/15/19 17:10 99.6 06/15/19 14:00 20 96 Nasal Cannula 2.0 06/13/19 09:00 21 I&O- Last 24 Hours up to 6 AM 06/15/19 06:00 Intake Total 1070 ml Output Total 450 ml Balance 620 ml Laboratory Data 24H LABS Laboratory Tests 2 06/15/19 05:49: Nucleated Red Blood Cells % (auto) 0.0, Anion Gap 8, Glomerular Filtration Rate > 60.0, Calcium Level 8.6, Phosphorus Level 3.5, Magnesium Level 2.0 06/15/19 16:59: Lactic Acid Level 2.3*H 06/15/19 21:26: CBC/BMP Laboratory Tests 06/15/19 05:49 Microbiology Microbiology 06/15/19 Blood Culture, Received Pending 06/15/19 Blood Culture, Received Pending 06/09/19 Blood Culture - Final, Complete NO GROWTH AFTER 5 DAYS 06/09/19 Blood Culture - Final, Complete NO GROWTH AFTER 5 DAYS 06/06/19 Urine Culture - Final, Complete KAMALJIT ISIDRO MD Jun 15, 2019 22:11
[2019-06-16] MEDS: SODIUM CHLORIDE HYPERTONIC 3% 15ML NEB SOL INH SCH ×6 (00:09→18:40)
[2019-06-16] MEDS: MEROPENEM INJ 1 GM in IV 1 EA IV SCH ×2 (05:31→16:20)
[2019-06-16] MEDS: LEVOTHYROXINE 150MCG TABLET (0.15MG) GT SCH (05:31)
[2019-06-16] MEDS: LEVOTHYROXINE 25MCG TABLET (0.025MG) GT SCH (05:31)
[2019-06-16] MEDS: SODIUM CHLORIDE 0.9% INJ 10 ML SYR IV SCH ×2 (05:32→18:16)
[2019-06-16 05:58] LABS: HEMATOCRIT 34.8 % (36.0-47.0); HEMOGLOBIN 11.6 g/dl (12.0-15.5); MEAN CORPUSCULAR HGB CONC 33.3 g/dl (32.0-36.5); PLATELET COUNT, AUTOMATED 349 10^3/uL (150-450); RED BLOOD COUNT 3.74 10^6/uL (4.00-5.40)
[2019-06-16 06:00] VITALS: BP 104/68
[2019-06-16 06:23] LABS: BLOOD UREA NITROGEN 8 MG/DL (7-18); CALCIUM LEVEL 8.3 MG/DL (8.5-10.1); CARBON DIOXIDE LEVEL 28 MEQ/L (21-32); CHLORIDE LEVEL 109 MEQ/L (98-107); CREATININE FOR GFR 0.33 MG/DL (0.55-1.30); GLOMERULAR FILTRATION RATE > 60.0 (>51); GLUCOSE, FASTING 105 MG/DL (70-100); MAGNESIUM LEVEL 2.1 MG/DL (1.8-2.4); PHOSPHORUS LEVEL 2.1 MG/DL (2.5-4.9); POTASSIUM SERUM 3.8 MEQ/L (3.5-5.1); SODIUM LEVEL 143 MEQ/L (136-145)
[2019-06-16] MEDS: VANCOMYCIN HCL 750 MG, VIAL MATE ADAPTER 1 EACH in D5W 250 ML IV SCH ×3 (06:45→22:42)
--- NOTE | 2019-06-16 07:49 | REP ---
IR gastrostomy catheter placement with fluoroscopy guidance. IR moderate sedation. Clinical information: Failure to thrive. Multiple strokes. Aspiration pneumonia. Physician: Dr. Pro. Procedure: The patient and patient's healthcare proxy were advised of the benefits, risks and alternatives of the procedure and informed consent was obtained. The time-out was performed with verification of the patient's name, MRN, site of procedure and type of procedure to be performed. The patient was positioned in the supine position on the angiographic table. The site was prepped and draped in the usual sterile fashion. A 5-Norwegian Kumpe catheter in conjunction with a Glidewire was inserted through the nostril under fluoroscopy guidance, down the esophagus into the stomach. The wire was removed. The catheter was taped to the nose. Moderate sedation was performed by the physician including the presence of an independent trained observer who assisted in monitoring the patient's level of consciousness and physiologic status. Following the administration of Versed and Fentanyl, the physician spent 60 minutes of continuous face to face time with the patient. A retail marketing coordinator radiograph reveals kumpe catheter tip in the expected location of the stomach. 1 mg of glucagon was administered intravenously. The stomach was insufflated and distended with air through the nasogastric tube. The soft tissues overlying the anticipated puncture site were anesthetized with lidocaine. A gastropexy needle was advanced into the stomach and positioning was confirmed with contrast injection. The gastropexy suture was deployed and secured in the usual fashion. A total of three gastropexy sutures were deployed under fluoroscopy guidance. An 18 gauge needle was advanced into the body of the stomach under fluoroscopy guidance. Contrast was injected through the needle documenting intragastric position. An Amplatz wire was advanced into the stomach. After serial dilation under fluoroscopy guidance, a 20-Norwegian peel-away sheath was advanced over the wire into the stomach under fluoroscopy guidance. An 18-Norwegian Socure gastrostomy catheter was then advanced through the peel-away sheath under fluoroscopy guidance. Contrast was injected through the gastrostomy catheter confirming position within the stomach. The balloon was insufflated and retracted to the anterior stomach wall. The catheter bumper was positioned to sandwich the anterior abdominal wall. The catheter was placed gravity drainage. The nasogastric catheter was removed. The patient tolerated the procedure well and was returned to the inpatient unit in stable condition. EBL: Less than 5 ml. Complications: None. Impression: 1. Successful percutaneous placement of 18-Norwegian gastrostomy catheter. Catheter to remain to gravity drainage for 24 hours. 2. Catheter may be used 24 hours past placement; Sunday06/13/19 1500 hours. The gastropexy sutures will dissolve within 6 weeks and the buttons will fall-off. 3. Patient to follow up in IR clinic in 2 weeks. Thank you this referral. Electronically Signed by Jamila Pro MD 06/13/2019 10:05 A
[2019-06-16 09:00] VITALS: O2SAT 92
--- NOTE | 2019-06-16 09:33 | IPN ---
DATE: 06/16/2019 Vilma is seen while rounding for the hospitalist. She feels better than she did yesterday. Looks as though she has had aspiration pneumonia. Her antibiotic regimen was accelerated yesterday and she seems to have responded to this. PHYSICAL EXAMINATION: Afebrile. Maximum temperature (T-max) 100.9, T-current 98.3. Blood pressure 104/68, pulse 100, respiratory rate 20, 94% oxygen saturation. She is alert and conversant. Lungs have scattered rhonchi. Heart: Regular rhythm. Abdomen soft, nontender. No peripheral edema. Neurological exam is stable. LABS: White count is down to 8. Electrolytes unremarkable. IMPRESSION: 1. Aspiration pneumonia: Improved on the current regiment of vancomycin and meropenem. She is also getting respiratory therapy for secretion clearance. Clinically, she is improved. She is also on IV fluconazole. I do not see through the notes why this was started. But she is clinically improved, we will continue this going for now. 2. Protein calorie malnutrition: Continued percutaneous endoscopic gastrostomy (PEG) tube feedings. She chronically aspirates which the PEG tube feedings will not prevent. She is on this solely for nutrition. 3. History of stroke: Continue Plavix and aspirin. 4. Hypothyroidism: Thyroid dose was recently adjusted.
[2019-06-16] MEDS ORDERED: VARIBAR PUDDING 40% w/v 230ML TUBE As Ordered ONE (09:43)
[2019-06-16] MEDS ORDERED: E-Z-PAQUE 96% w/w SUSP 176GM BTL As Ordered ONE (09:43)
[2019-06-16] MEDS ORDERED: VARIBAR NECTAR 40% w/v 240ML SUSP BTL As Ordered ONE (09:43)
[2019-06-16] MEDS ORDERED: BARIUM SULFATE 700 MG TABLET (E-Z-DISK) As Ordered ONE (09:44)
[2019-06-16] MEDS: PREGABALIN 100 MG CAP (LYRICA) GT SCH (10:42)
[2019-06-16] MEDS: VALPROIC ACID 250MG/5ML SOL ORAL SYRINGE *DRAW UP EXACT DOSE GT SCH (10:42)
[2019-06-16] MEDS: SIMETHICONE 80 MG CHEW TAB GT SCH (10:42)
[2019-06-16] MEDS: CLOPIDOGREL 75 MG TAB GT SCH (10:42)
[2019-06-16] MEDS: HEPARIN SOD (PORCINE) 5000 UNITS/ML VIAL (J1644 PER 1000UNITS) SC SCH ×2 (10:43→20:56)
[2019-06-16] MEDS: NS 1,000 ML IV SCH (13:31)
[2019-06-16] MEDS: ACETAMINOPHEN 325 MG/10.15 ML UDC GT PRN (13:44)
[2019-06-16 14:00] VITALS: BP 110/62
[2019-06-16] MEDS ORDERED: PROCHLORPERAZINE 5 MG TAB (S0183) PO PRN (15:45)
[2019-06-16] MEDS ORDERED: LORATADINE 10 MG TAB PO PRN (15:45)
[2019-06-16] MEDS ORDERED: RIZATRIPTAN BENZOATE 10 MG TAB PO PRN (15:45)
[2019-06-16] MEDS: PREGABALIN 100 MG CAP (LYRICA) PO SCH ×2 (16:18→20:55)
[2019-06-16] MEDS: SIMETHICONE 80 MG CHEW TAB PO SCH ×2 (16:18→20:56)
[2019-06-16] MEDS: traMADol 50 MG TAB PO PRN (16:19)
[2019-06-16] MEDS: SCOPOLAMINE 1MG TRANSDERMAL PATCH TOP SCH (16:20)
--- NOTE | 2019-06-16 17:31 | REP ---
COOKIE SWALLOW The procedure was performed under the direct supervision of Dr. Barker. The procedure was performed with Poppy Galvez from speech pathology present. 5 ml aliquots of thin, nectar, fruit and honey consistency barium was administered. There is no evidence of penetration or aspiration. The detailed report of this examination will be provided by speech pathology. 2 minutes of fluoroscopy time was utilized for this procedure. Electronically Signed by TERA Smith 06/16/2019 04:11 P Electronically Signed by Axel Barker MD 06/16/2019 05:23 P
[2019-06-16] MEDS: VALPROIC ACID 250MG/5ML SOL ORAL SYRINGE *DRAW UP EXACT DOSE PO SCH (20:55)
[2019-06-16] MEDS: FLUCONAZOLE 100 MG in IV 1 EA IV SCH (20:55)
[2019-06-16] MEDS: ATORVASTATIN 20 MG TAB PO SCH (20:56)
[2019-06-16 22:00] VITALS: BP 114/79
[2019-06-17] MEDS: SODIUM CHLORIDE HYPERTONIC 3% 15ML NEB SOL INH SCH ×6 (00:24→20:00)
[2019-06-17] MEDS: MEROPENEM INJ 1 GM in IV 1 EA IV SCH ×2 (04:25→16:52)
[2019-06-17 05:20] LABS: HEMATOCRIT 35.3 % (36.0-47.0); HEMOGLOBIN 11.2 g/dl (12.0-15.5); MEAN CORPUSCULAR HEMOGLOBIN 30.2 pg (27.0-33.0); MEAN CORPUSCULAR HGB CONC 31.7 g/dl (32.0-36.5); MEAN CORPUSCULAR VOLUME 95.1 fl (80.0-96.0); PLATELET COUNT, AUTOMATED 305 10^3/uL (150-450); RED BLOOD COUNT 3.71 10^6/uL (4.00-5.40)
[2019-06-17 05:49] LABS: BLOOD UREA NITROGEN 6 MG/DL (7-18); CALCIUM LEVEL 7.8 MG/DL (8.5-10.1); CARBON DIOXIDE LEVEL 33 MEQ/L (21-32); CHLORIDE LEVEL 108 MEQ/L (98-107); CREATININE FOR GFR 0.27 MG/DL (0.55-1.30); GLOMERULAR FILTRATION RATE > 60.0 (>51); GLUCOSE, FASTING 112 MG/DL (70-100); POTASSIUM SERUM 3.8 MEQ/L (3.5-5.1); SODIUM LEVEL 143 MEQ/L (136-145); VANCOMYCIN LEVEL TROUGH 16.5 UG/ML (10.0-20.0)
--- NOTE | 2019-06-17 05:55 | PHACANCOPD ---
PHARMACY VANCOMYCIN DOSING Pt Demographics Demographics Patient Age:59 , Weight:49.500 , Gender: female Adjusted Body Weight Date: 06/09/19, Adjusted Body Weight: Kg Events Past 24 Hours Events Past 24 Hours: NO: Dialysis, Diuretic Therapy, Change in CrCl, Fever, Elevation in WBC, Pending Diagnostics, Pending Procedures, Other Vancomycin Vancomycin Target Ranges: 15-20 mcg/ml Vancomycin Load Y/N: Yes Load Dose Date Time Vancomycin Load Dose: 1 GM Date: 06/09/19 Time: 1200 Vancomycin Dose Date: 06/17/19. Current Vancomycin Dose: [750 MG IV Q8H] Intermittent Dosing?: No Labs Labs Item Value Date Time White Blood Count 7.0 10^3/uL 06/17/19 0508 Glomerular Filtration Rate > 60.0 06/17/19 0508 Creatinine 0.27 MG/DL L 06/17/19 0508 Blood Urea Nitrogen 6 MG/DL L 06/17/19 0508 Vancomycin Level Trough 16.5 UG/ML 06/17/19 0508 Vital Signs Label Value Date Time Patient Temperature 98.5 degrees F 06/16/19 2200 Temperature Source Oral 06/16/19 2200 Micro Microbiology 06/15/19 Blood Culture - Preliminary, Resulted No growth after 24 hours . All specim... 06/15/19 Blood Culture - Preliminary, Resulted No growth after 24 hours . All specim... 06/09/19 Blood Culture - Final, Complete NO GROWTH AFTER 5 DAYS 06/09/19 Blood Culture - Final, Complete NO GROWTH AFTER 5 DAYS Creatinine Clearance Date:06/09/19. Creatinine Clearance: . Assessment and Plan Maintaining Current Dose?: Yes Reason for dose change: No Dose Change Pharmacist Note Pharmacist Note Date: 06/17/19. Pharmacist note: Trough of 16.5 is within target range. will continue current dosing. Will monitor and make adjustments as needed. NANCY FOFANA PHARMAC[facility] Jun 17, 2019 05:55
[2019-06-17 06:00] VITALS: BP 119/80
[2019-06-17] MEDS: VANCOMYCIN HCL 750 MG, VIAL MATE ADAPTER 1 EACH in D5W 250 ML IV SCH ×3 (06:08→22:16)
[2019-06-17] MEDS: LEVOTHYROXINE 25MCG TABLET (0.025MG) PO SCH (06:09)
[2019-06-17] MEDS: SODIUM CHLORIDE 0.9% INJ 10 ML SYR IV SCH ×2 (06:09→17:48)
[2019-06-17] MEDS: LEVOTHYROXINE 150MCG TABLET (0.15MG) PO SCH (06:09)
[2019-06-17] MEDS: NS 1,000 ML IV SCH (09:32)
[2019-06-17] MEDS: HEPARIN SOD (PORCINE) 5000 UNITS/ML VIAL (J1644 PER 1000UNITS) SC SCH ×2 (09:33→20:09)
[2019-06-17] MEDS: VALPROIC ACID 250MG/5ML SOL ORAL SYRINGE *DRAW UP EXACT DOSE PO SCH ×2 (09:33→20:09)
[2019-06-17] MEDS: SIMETHICONE 80 MG CHEW TAB PO SCH ×3 (09:34→20:09)
[2019-06-17] MEDS: PREGABALIN 100 MG CAP (LYRICA) PO SCH ×3 (09:34→20:09)
[2019-06-17] MEDS: CLOPIDOGREL 75 MG TAB PO SCH (09:34)
--- NOTE | 2019-06-17 11:42 | IPNPDOC ---
Subjective Date Seen The patient was seen on 06/17/19. Subjective Chief Complaint/HPI Patient comfortable, no apparent distress. Offers no new complaints General: Denies: ROS Unobtainable, Chills, Night Sweats, Fatigue, Malaise, Normal Appetite, Other Symptoms Constitutional: Denies: Chills, Fever, Malaise, Night Sweats, Weakness, Fatigue, Weight Loss, Lethargy, Other Eyes: Denies: Pain, Vision change, Conjunctivae inflammation, Eyelid inflammation, Redness, Other ENT: Denies: Head Aches, Ear Pain, Dysphagia, Sinus Congestion, Post Nasal Drip, Sore Throat, Epistaxis, Other Symptoms Cardiovascular: Denies: Chest Pain, Palpitations, Orthopnea, Paroxysmal Noc. Dyspnea, Edema, Lt Headedness, Other Symptoms Gastrointestinal: Denies: Nausea, Vomiting, Abdominal Pain, Diarrhea, Constipation, Melena, Hematochezia, Other Symptoms Musculoskeletal: Denies: Neck Pain, Back Pain, Shoulder Pain, Arm Pain, Hand Pain, Leg Pain, Foot Pain, Joint Pain, Muscle Pain, Spasms, Other Symptoms Neurological: Denies: Weakness, Numbness, Incoordination, Change in speech, Confusion, Seizures, Other Symptoms Objective Physical Examination General Exam: Positive: Alert, Cooperative ENT Exam: Positive: Atraumatic, Mucous membr. moist/pink Chest Exam: Positive: Clear to auscultation, Other (. Bilateral basilar crackles) Heart Exam: Positive: Rate Normal, Normal S1, Normal S2 Abdomen Exam: Positive: Normal bowel sounds Extremity Exam: Positive: Normal pulses Skin Exam: Positive: Nl turgor and temperature Neuro Exam: Positive: Strength at 5/5 X4 ext, Cranial Nerves 3-12 NL Assessment /Plan Problems (1) Pneumonia Status: Acute Problem Text: Most likely aspiration pneumonia Improved on the current regiment of vancomycin and meropenem. And fluconazole She is also getting respiratory therapy for secretion clearance. Continue present therapy. Her WBC count today is 7.0 Will repeat chest x-ray tomorrow as well as CBC and CMP. If patient has use antibiotics more than 7 days and there is no evidence of infiltrate on chest x- ray, then we will DC IV antibiotics (2) UTI (urinary tract infection) Status: Acute Problem Text: Urine cultures negative Patient currently on Vanco meropenem and fluconazole (3) Hypothyroidism Status: Chronic Problem Text: Continue present meds (4) Protein calorie malnutrition Status: Chronic Problem Text: Patient does have a protein calorie malnutrition with BMI of 16.6 Will request dietary consult for possible nutritional supplements (5) Hypothyroid Status: Chronic Problem Text: Continue home meds Plan/VTE VTE Prophylaxis Ordered?: Yes VS, I&O, 24H, Fishbone Vital Signs/I&O Vital Signs Date Time Temp Pulse Resp B/P (MAP) Pulse Ox O2 Delivery O2 Flow Rate FiO2 06/17/19 06:00 98.7 84 18 119/80 (93) 93 Nasal Cannula 1.0 06/13/19 09:00 21 I&O- Last 24 Hours up to 6 AM 06/17/19 05:59 Intake Total 3900 ml Output Total 4320 ml Balance -420 ml Laboratory Data 24H LABS Laboratory Tests 2 06/17/19 05:08: Nucleated Red Blood Cells % (auto) 0.0, Anion Gap 2L, Glomerular Filtration Rate > 60.0, Calcium Level 7.8L, Vancomycin Level Trough 16.5 CBC/BMP Laboratory Tests 06/17/19 05:08 Microbiology Microbiology 06/15/19 Blood Culture - Preliminary, Resulted No growth after 24 hours . All specim... 06/15/19 Blood Culture - Preliminary, Resulted No growth after 24 hours . All specim... 06/09/19 Blood Culture - Final, Complete NO GROWTH AFTER 5 DAYS 06/09/19 Blood Culture - Final, Complete NO GROWTH AFTER 5 DAYS ERIKA CASTILLO MD Jun 17, 2019 11:42
[2019-06-17] MEDS: traMADol 50 MG TAB PO PRN (12:26)
[2019-06-17 14:00] VITALS: BP 123/79
[2019-06-17] MEDS: PERCOCET 5MG/325MG TAB PO PRN (18:20)
[2019-06-17] MEDS: FLUCONAZOLE 100 MG in IV 1 EA IV SCH (20:08)
[2019-06-17] MEDS: ATORVASTATIN 20 MG TAB PO SCH (20:09)
[2019-06-17 22:00] VITALS: BP 121/76
[2019-06-18] MEDS: PERCOCET 5MG/325MG TAB PO PRN ×2 (02:46→12:41)
[2019-06-18] MEDS: SODIUM CHLORIDE HYPERTONIC 3% 15ML NEB SOL INH SCH ×7 (03:26→23:41)
[2019-06-18 04:42] VITALS: O2SAT 95
[2019-06-18] MEDS: MEROPENEM INJ 1 GM in IV 1 EA IV SCH ×2 (05:33→16:51)
[2019-06-18] MEDS: LEVOTHYROXINE 25MCG TABLET (0.025MG) PO SCH (05:34)
[2019-06-18] MEDS: LEVOTHYROXINE 150MCG TABLET (0.15MG) PO SCH (05:34)
[2019-06-18] MEDS: SODIUM CHLORIDE 0.9% INJ 10 ML SYR IV SCH ×2 (05:34→17:43)
[2019-06-18 06:00] VITALS: BP 120/74
[2019-06-18 06:24] LABS: BASO # 0.1 10^3/uL (0.0-0.2); BASO % 1.6 % (0.0-1.0); EOS # 0.4 10^3/uL (0.0-0.5); EOS % 4.9 % (0.0-3.0); HEMATOCRIT 33.8 % (36.0-47.0); HEMOGLOBIN 11.1 g/dl (12.0-15.5); LYMPH # 2.1 10^3/uL (1.5-5.0); LYMPH % 29.2 % (24.0-44.0); MEAN CORPUSCULAR HEMOGLOBIN 30.7 pg (27.0-33.0); MEAN CORPUSCULAR HGB CONC 32.8 g/dl (32.0-36.5); MEAN CORPUSCULAR VOLUME 93.4 fl (80.0-96.0); MONO # 0.9 10^3/uL (0.0-0.8); MONO % 11.6 % (0.0-5.0); NEUTROPHILS # 3.8 10^3/uL (1.5-8.5); NEUTROPHILS % 51.9 % (36.0-66.0); PLATELET COUNT, AUTOMATED 372 10^3/uL (150-450); RED BLOOD COUNT 3.62 10^6/uL (4.00-5.40); WHITE BLOOD COUNT 7.3 10^3/uL (4.0-10.0)
[2019-06-18] MEDS: VANCOMYCIN HCL 750 MG, VIAL MATE ADAPTER 1 EACH in D5W 250 ML IV SCH ×3 (06:25→22:21)
[2019-06-18 06:56] LABS: ALBUMIN 2.3 GM/DL (3.2-5.2); ALT/SGPT 19 U/L (12-78); BILIRUBIN,TOTAL 0.2 MG/DL (0.2-1.0); BLOOD UREA NITROGEN 10 MG/DL (7-18); CALCIUM LEVEL 8.5 MG/DL (8.5-10.1); CARBON DIOXIDE LEVEL 33 MEQ/L (21-32); CHLORIDE LEVEL 103 MEQ/L (98-107); GLOMERULAR FILTRATION RATE > 60.0 (>51); GLUCOSE, FASTING 118 MG/DL (70-100); POTASSIUM SERUM 4.2 MEQ/L (3.5-5.1); SODIUM LEVEL 141 MEQ/L (136-145); TOTAL PROTEIN 5.3 GM/DL (6.4-8.2)
--- NOTE | 2019-06-18 10:12 | REP ---
Clinical: Pneumonia. Technique: PA and lateral. Comparison: 06/15/2019. Findings: Moderate right lower lobe opacity suggesting consolidation and effusion is decreased and significantly improved as compared to prior examination. Left hemithorax is relatively clear. No pneumothorax. Visualized mediastinum and cardiac silhouette are normal / stable. Skeletal structures demonstrate osteopenia and degenerative changes. Prior cholecystectomy. Impression: Improved aeration with decreased right consolidation/effusion. Electronically Signed by Ron Willett MD 06/18/2019 10:04 A
--- NOTE | 2019-06-18 10:50 | REP ---
Clinical: Pulmonary mass. Technique: Axial noncontrast images from the thoracic inlet to the upper abdomen with coronal and sagittal re-formations. Comparison: 06/15/2019. Findings: Significant consolidation and air bronchograms with essentially complete collapse of the right middle and right lower lobes. Small associated right pleural effusion. The right upper lobe is essentially well-aerated and clear. Left hemithorax demonstrates minimal posterior basilar atelectasis and small pleural reaction. Reactive mediastinal and hilar adenopathy cannot be excluded. Thoracic aorta, pulmonary vasculature and heart/pericardium appear relatively normal by noncontrast evaluation. Musculoskeletal structures are intact. Impression: Complete consolidation / collapse with minimal central bronchograms involving the right middle lobe and right lower lobe. Associated small right pleural effusion. Electronically Signed by Ron Willett MD 06/18/2019 10:42 A
[2019-06-18] MEDS: SIMETHICONE 80 MG CHEW TAB PO SCH ×3 (11:13→20:02)
[2019-06-18] MEDS: PREGABALIN 100 MG CAP (LYRICA) PO SCH ×3 (11:13→20:02)
[2019-06-18] MEDS: VALPROIC ACID 250MG/5ML SOL ORAL SYRINGE *DRAW UP EXACT DOSE PO SCH ×2 (11:13→20:01)
[2019-06-18] MEDS: HEPARIN SOD (PORCINE) 5000 UNITS/ML VIAL (J1644 PER 1000UNITS) SC SCH ×2 (11:13→20:02)
[2019-06-18] MEDS: CLOPIDOGREL 75 MG TAB PO SCH (11:13)
[2019-06-18] MEDS: OMEPRAZOLE 20 MG CAP PO SCH (11:13)
[2019-06-18] MEDS: SCOPOLAMINE 1MG TRANSDERMAL PATCH TOP SCH (11:14)
[2019-06-18 14:00] VITALS: BP 120/68
--- NOTE | 2019-06-18 14:30 | IPNPDOC ---
Subjective Date Seen The patient was seen on 06/18/19. Subjective Chief Complaint/HPI Patient is comfortable in no distress. Offers no new complaints General: Denies: ROS Unobtainable, Chills, Night Sweats, Fatigue, Malaise, Normal Appetite, Other Symptoms ENT: Denies: Head Aches, Ear Pain, Dysphagia, Sinus Congestion, Post Nasal Drip, Sore Throat, Epistaxis, Other Symptoms Skin: Denies: Rash, Lesions, Jaundice, Bruising, Itching, Dry, Breakdown, Nail Changes, Other Pulmonary: Denies: Dyspnea, Cough, Pleuritic Chest Pain, Other Symptoms Cardiovascular: Denies: Chest Pain, Palpitations, Orthopnea, Paroxysmal Noc. D yspnea, Edema, Lt Headedness, Other Symptoms Gastrointestinal: Denies: Nausea, Vomiting, Abdominal Pain, Diarrhea, Constipation, Melena, Hematochezia, Other Symptoms Genitourinary: Denies: Dysuria, Frequency, Incontinence, Hematuria, Retention, Other Symptoms Musculoskeletal: Denies: Neck Pain, Back Pain, Shoulder Pain, Arm Pain, Hand Pain, Leg Pain, Foot Pain, Joint Pain, Muscle Pain, Spasms, Other Symptoms Neurological: Denies: Weakness, Numbness, Incoordination, Change in speech, Confusion, Seizures, Other Symptoms Objective Physical Examination General Exam: Positive: Alert, Cooperative ENT Exam: Positive: Atraumatic, Mucous membr. moist/pink Chest Exam: Positive: Clear to auscultation, Other (. Bilateral basilar crackles) Heart Exam: Positive: Rate Normal, Normal S1, Normal S2 Abdomen Exam: Positive: Normal bowel sounds Extremity Exam: Positive: Normal pulses Skin Exam: Positive: Nl turgor and temperature Neuro Exam: Positive: Strength at 5/5 X4 ext, Cranial Nerves 3-12 NL Assessment /Plan Problems (1) Pneumonia Status: Acute Problem Text: Most likely aspiration pneumonia Improved on the current regiment of vancomycin and meropenem. And fluconazole She is also getting respiratory therapy for secretion clearance. Continue present therapy. Her WBC count today is 7.[address] without contrast is consistent with complete consolidation/collapse with minimal central bronchograms involving the right middle lobe and right lower lobe, small right pleural effusion Dr. Mckeon was called and message has been left for pulmonary follow-up at the recommend any further intervention if needed Also once cleared by pulmonary can also stop IV antibiotics after tomorrow, Diflucan has been DC'd as there is no evidence of thrush at the present time (2) UTI (urinary tract infection) Status: Acute Problem Text: Urine cultures negative Patient currently on Vanco meropenem (3) Hypothyroidism Status: Chronic Problem Text: Continue present meds (4) Protein calorie malnutrition Status: Chronic Problem Text: Patient does have a protein calorie malnutrition with BMI of 16.6 Will request dietary consult for possible nutritional supplements (5) Hypothyroid Status: Chronic Problem Text: Continue home meds Plan/VTE VTE Prophylaxis Ordered?: Yes VS, I&O, 24H, Fishbone Vital Signs/I&O Vital Signs Date Time Temp Pulse Resp B/P (MAP) Pulse Ox O2 Delivery O2 Flow Rate FiO2 06/18/19 13:11 18 06/18/19 06:00 97.7 111 120/74 (89) 97 Nasal Cannula 1.0 06/18/19 04:42 28 I&O- Last 24 Hours up to 6 AM 06/18/19 06:00 Intake Total 2295 ml Output Total 2825 ml Balance -530 ml Laboratory Data 24H LABS Laboratory Tests 2 06/18/19 05:26: Immature Granulocyte % (Auto) 0.8, Neutrophils (%) (Auto) 51.9, Lymphocytes (%) (Auto) 29.2, Monocytes (%) (Auto) 11.6H, Eosinophils (%) (Auto) 4.9H, Basophils (%) (Auto) 1.6H, Neutrophils # (Auto) 3.8, Lymphocytes # (Auto) 2.1, Monocytes # (Auto) 0.9H, Eosinophils # (Auto) 0.4, Basophils # (Auto) 0.1, Nucleated Red Blood Cells % (auto) 0.0, Anion Gap 5L, Glomerular Filtration Rate > 60.0, Calcium Level 8.5, Total Bilirubin 0.2, Aspartate Amino Transf (AST/SGOT) 20, A lanine Aminotransferase (ALT/SGPT) 19, Alkaline Phosphatase 73, Total Protein 5.3L, Albumin 2.3L, Albumin/Globulin Ratio 0.77L CBC/BMP Laboratory Tests 06/18/19 05:26 Microbiology Microbiology 06/15/19 Blood Culture - Preliminary, Resulted No Growth after 48 hours. All Specime... 06/15/19 Blood Culture - Preliminary, Resulted No Growth after 48 hours. All Specime... 06/09/19 Blood Culture - Final, Complete NO GROWTH AFTER 5 DAYS 06/09/19 Blood Culture - Final, Complete NO GROWTH AFTER 5 DAYS ERIKA CASTILLO MD Jun 18, 2019 14:30
[2019-06-18] MEDS: SODIUM CHLORIDE 0.9% INJ 10 ML SYR IV PRN (14:58)
[2019-06-18] MEDS: ATORVASTATIN 20 MG TAB PO SCH (20:02)
[2019-06-18 22:00] VITALS: BP 136/78
[2019-06-19] MEDS: SODIUM CHLORIDE HYPERTONIC 3% 15ML NEB SOL INH SCH ×5 (04:02→20:00)
[2019-06-19 06:00] VITALS: BP 116/71
[2019-06-19] MEDS: VANCOMYCIN HCL 750 MG, VIAL MATE ADAPTER 1 EACH in D5W 250 ML IV SCH (06:04)
[2019-06-19] MEDS: LEVOTHYROXINE 25MCG TABLET (0.025MG) PO SCH (06:04)
[2019-06-19] MEDS: SODIUM CHLORIDE 0.9% INJ 10 ML SYR IV SCH ×2 (06:04→16:33)
[2019-06-19] MEDS: MEROPENEM INJ 1 GM in IV 1 EA IV SCH (06:04)
[2019-06-19] MEDS: LEVOTHYROXINE 150MCG TABLET (0.15MG) PO SCH (06:05)
[2019-06-19 06:25] LABS: HEMATOCRIT 41.7 % (36.0-47.0); MEAN CORPUSCULAR HEMOGLOBIN 30.3 pg (27.0-33.0); MEAN CORPUSCULAR HGB CONC 31.7 g/dl (32.0-36.5); MEAN CORPUSCULAR VOLUME 95.9 fl (80.0-96.0); PLATELET COUNT, AUTOMATED 378 10^3/uL (150-450); RED BLOOD COUNT 4.35 10^6/uL (4.00-5.40); WHITE BLOOD COUNT 9.8 10^3/uL (4.0-10.0)
[2019-06-19 06:30] LABS: HEMOGLOBIN 13.2 g/dl (12.0-15.5)
[2019-06-19 06:46] LABS: BLOOD UREA NITROGEN 12 MG/DL (7-18); CALCIUM LEVEL 9.2 MG/DL (8.5-10.1); CARBON DIOXIDE LEVEL 32 MEQ/L (21-32); CHLORIDE LEVEL 102 MEQ/L (98-107); CREATININE FOR GFR 0.38 MG/DL (0.55-1.30); GLOMERULAR FILTRATION RATE > 60.0 (>51); GLUCOSE, FASTING 126 MG/DL (70-100); POTASSIUM SERUM 4.6 MEQ/L (3.5-5.1); SODIUM LEVEL 140 MEQ/L (136-145)
[2019-06-19 08:00] VITALS: BP 115/80
[2019-06-19] MEDS: PREGABALIN 100 MG CAP (LYRICA) PO SCH ×3 (09:19→21:47)
[2019-06-19] MEDS: OMEPRAZOLE 20 MG CAP PO SCH (10:46)
[2019-06-19] MEDS: HEPARIN SOD (PORCINE) 5000 UNITS/ML VIAL (J1644 PER 1000UNITS) SC SCH ×2 (10:46→21:47)
[2019-06-19] MEDS: VALPROIC ACID 250MG/5ML SOL ORAL SYRINGE *DRAW UP EXACT DOSE PO SCH ×2 (10:46→21:47)
[2019-06-19] MEDS: SIMETHICONE 80 MG CHEW TAB PO SCH ×3 (10:47→21:46)
[2019-06-19] MEDS: CLOPIDOGREL 75 MG TAB PO SCH (10:47)
--- NOTE | 2019-06-19 12:46 | IPNPDOC ---
Subjective Date Seen The patient was seen on 06/19/19. Subjective Chief Complaint/HPI Patient is comfortable in no distress. Offers no new complaints. Adams catheter is still in place General: Denies: ROS Unobtainable, Chills, Night Sweats, Fatigue, Malaise, Normal Appetite, Other Symptoms Constitutional: Denies: Chills, Fever, Malaise, Night Sweats, Weakness, Fatigue, Weight Loss, Lethargy, Other Pulmonary: Denies: Dyspnea, Cough, Pleuritic Chest Pain, Other Symptoms Cardiovascular: Denies: Chest Pain, Palpitations, Orthopnea, Paroxysmal Noc. Dyspnea, Edema, Lt Headedness, Other Symptoms Gastrointestinal: Denies: Nausea, Vomiting, Abdominal Pain, Diarrhea, Constipation, Melena, Hematochezia, Other Symptoms Genitourinary: Denies: Dysuria, Frequency, Incontinence, Hematuria, Retention, Other Symptoms Musculoskeletal: Denies: Neck Pain, Back Pain, Shoulder Pain, Arm Pain, Hand Pain, Leg Pain, Foot Pain, Joint Pain, Muscle Pain, Spasms, Other Symptoms Neurological: Denies: Weakness, Numbness, Incoordination, Change in speech, Confusion, Seizures, Other Symptoms Objective Physical Examination ENT Exam: Positive: Atraumatic, Mucous membr. moist/pink Chest Exam: Positive: Clear to auscultation, Other (. Bilateral basilar crackles) Heart Exam: Positive: Rate Normal, Normal S1, Normal S2 Abdomen Exam: Positive: Normal bowel sounds Extremity Exam: Positive: Normal pulses Skin Exam: Positive: Nl turgor and temperature Neuro Exam: Positive: Strength at 5/5 X4 ext, Cranial Nerves 3-12 NL Assessment /Plan Problems (1) Pneumonia Status: Resolved Problem Text: Most likely aspiration pneumonia Improved with the vancomycin, meropenem and fluconazole. We will DC all antibiot ics and fluconazole was DC'd yesterday as patient is asymptomatic, afebrile and repeat CT shows collapse of right lower middle lobe, but meds discussed with Dr. Mcekon. She checked the CAT scan herself and she she explained that actually helped CAT scan looks much better than her previous x-rays and scans and she can have repeat CAT scan in 6 weeks again. Patient also has no respiratory symptoms at the present time and as she is allergic to most of the antibiotics. Hence, will not start any new antibiotics and monitor her clinically. Patient. WBC count today is 9.8, hemoglobin 18.2 Will DC Adams catheter today Possible discharge to rehabilitation was the bed is available (2) UTI (urinary tract infection) Status: Resolved Problem Text: Urine cultures negative Patient received 7 days of vancomycin, meropenem and fluconazole . We'll DC all antibiotics and monitor clinically DC urinary catheter (3) Hypothyroidism Status: Chronic Problem Text: Continue present meds (4) Protein calorie malnutrition Status: Chronic Problem Text: Patient does have a mild protein calorie malnutrition with BMI of 16.6 Dietary consult appreciated (5) Hypothyroid Status: Chronic Problem Text: Continue home meds Plan/VTE VTE Prophylaxis Ordered?: Yes VS, I&O, 24H, Fishbone Vital Signs/I&O Vital Signs Date Time Temp Pulse Resp B/P (MAP) Pulse Ox O2 Delivery O2 Flow Rate FiO2 06/19/19 09:22 2.0 06/19/19 08:00 98.4 92 18 115/80 (92) 96 Nasal Cannula 06/18/19 04:42 28 I&O- Last 24 Hours up to 6 AM 06/19/19 06:00 Intake Total 1760 ml Output Total 5625 ml Balance -3865 ml Laboratory Data 24H LABS Laboratory Tests 2 06/19/19 05:47: Nucleated Red Blood Cells % (auto) 0.0, Anion Gap 6L, Glomerular Filtration Rate > 60.0, Calcium Level 9.2 CBC/BMP Laboratory Tests 06/19/19 05:47 Microbiology Microbiology 06/15/19 Blood Culture - Preliminary, Resulted No Growth after 72 hours. All specime... 06/15/19 Blood Culture - Preliminary, Resulted No Growth after 72 hours. All specime... 06/09/19 Blood Culture - Final, Complete NO GROWTH AFTER 5 DAYS 06/09/19 Blood Culture - Final, Complete NO GROWTH AFTER 5 DAYS ERIKA CASTILLO MD Jun 19, 2019 12:46
[2019-06-19 14:00] VITALS: BP 113/80; O2SAT 98
[2019-06-19] MEDS: SCOPOLAMINE 1MG TRANSDERMAL PATCH TOP SCH (16:34)
[2019-06-19] MEDS: ATORVASTATIN 20 MG TAB PO SCH (21:47)
[2019-06-19 22:00] VITALS: BP 112/79
[2019-06-19 23:27] VITALS: O2SAT 95
[2019-06-20] MEDS: SODIUM CHLORIDE 0.9% INJ 10 ML SYR IV SCH ×2 (05:17→16:45)
[2019-06-20 06:00] VITALS: BP 114/80
[2019-06-20] MEDS: LEVOTHYROXINE 150MCG TABLET (0.15MG) PO SCH (06:15)
[2019-06-20] MEDS: LEVOTHYROXINE 25MCG TABLET (0.025MG) PO SCH (06:15)
[2019-06-20 06:25] LABS: HEMATOCRIT 40.4 % (36.0-47.0); HEMOGLOBIN 13.5 g/dl (12.0-15.5); MEAN CORPUSCULAR HGB CONC 33.4 g/dl (32.0-36.5); MEAN CORPUSCULAR VOLUME 92.7 fl (80.0-96.0); PLATELET COUNT, AUTOMATED 471 10^3/uL (150-450); RED BLOOD COUNT 4.36 10^6/uL (4.00-5.40); WHITE BLOOD COUNT 11.8 10^3/uL (4.0-10.0)
[2019-06-20 06:40] LABS: BLOOD UREA NITROGEN 25 MG/DL (7-18); CALCIUM LEVEL 9.3 MG/DL (8.5-10.1); CARBON DIOXIDE LEVEL 32 MEQ/L (21-32); CHLORIDE LEVEL 103 MEQ/L (98-107); CREATININE FOR GFR 0.42 MG/DL (0.55-1.30); GLOMERULAR FILTRATION RATE > 60.0 (>51); GLUCOSE, FASTING 137 MG/DL (70-100); POTASSIUM SERUM 4.2 MEQ/L (3.5-5.1); SODIUM LEVEL 141 MEQ/L (136-145)
[2019-06-20 08:00] VITALS: O2SAT 96
[2019-06-20] MEDS: VALPROIC ACID 250MG/5ML SOL ORAL SYRINGE *DRAW UP EXACT DOSE PO SCH ×2 (09:38→20:33)
[2019-06-20] MEDS: CLOPIDOGREL 75 MG TAB PO SCH (09:39)
[2019-06-20] MEDS: PREGABALIN 100 MG CAP (LYRICA) PO SCH ×3 (09:39→20:34)
[2019-06-20] MEDS: SIMETHICONE 80 MG CHEW TAB PO SCH ×3 (09:39→20:34)
[2019-06-20] MEDS: HEPARIN SOD (PORCINE) 5000 UNITS/ML VIAL (J1644 PER 1000UNITS) SC SCH ×2 (09:39→20:34)
[2019-06-20] MEDS: OMEPRAZOLE 20 MG CAP PO SCH (09:39)
--- NOTE | 2019-06-20 10:00 | ECGEPIP ---
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
--- NOTE | 2019-06-20 12:26 | IPNPDOC ---
Subjective Date Seen The patient was seen on 06/20/19. Subjective Chief Complaint/HPI Patient had a anxiety-like episode complaining of weakness, chest pains all over the chest. During the physical therapy. Stat EKG was obtained which showed normal sinus tachycardia, no ST-T changes. Once patient was the bed to become very comfortable. Again General: Denies: ROS Unobtainable, Chills, Night Sweats, Fatigue, Malaise, Normal Appetite, Other Symptoms Constitutional: Denies: Chills, Fever, Malaise, Night Sweats, Weakness, Fatigue, Weight Loss, Lethargy, Other Eyes: Denies: Pain, Vision change, Conjunctivae inflammation, Eyelid inflammation, Redness, Other Pulmonary: Denies: Dyspnea, Cough, Pleuritic Chest Pain, Other Symptoms Cardiovascular: Denies: Chest Pain, Palpitations, Orthopnea, Paroxysmal Noc. Dyspnea, Edema, Lt Headedness, Other Symptoms Gastrointestinal: Denies: Nausea, Vomiting, Abdominal Pain, Diarrhea, Constipation, Melena, Hematochezia, Other Symptoms Genitourinary: Denies: Dysuria, Frequency, Incontinence, Hematuria, Retention, Other Symptoms Hematologic: Denies: Bruising, Bleeding Excessively, Petecchia, Purpura, Enlarged Lymph Nodes, Other Hematologic Musculoskeletal: Denies: Neck Pain, Back Pain, Shoulder Pain, Arm Pain, Hand Pain, Leg Pain, Foot Pain, Joint Pain, Muscle Pain, Spasms, Other Symptoms Neurological: Denies: Weakness, Numbness, Incoordination, Change in speech, C onfusion, Seizures, Other Symptoms Objective Physical Examination ENT Exam: Positive: Atraumatic, Mucous membr. moist/pink Chest Exam: Positive: Clear to auscultation, Other (. Bilateral basilar crackles) Heart Exam: Positive: Rate Normal, Normal S1, Normal S2 Abdomen Exam: Positive: Normal bowel sounds Extremity Exam: Positive: Normal pulses Skin Exam: Positive: Nl turgor and temperature Neuro Exam: Positive: Strength at 5/5 X4 ext, Cranial Nerves 3-12 NL Assessment /Plan Problems (1) Pneumonia Status: Resolved Problem Text: Most likely aspiration pneumonia Improved with the vancomycin, meropenem and fluconazole. We will DC all antibiotics and fluconazole was DC'd yesterday as patient is asymptomatic, afebrile and repeat CT shows collapse of right lower middle lobe, but meds discussed with Dr. Mckeon. She checked the CAT scan herself and she she explained that actually helped CAT scan looks much better than her previous x- rays and scans and she can have repeat CAT scan in 6 weeks again. Patient is completely asymptomatic. No respiratory symptoms. She is off antibiotics and her WBC count is essentially within normal limits Adams's catheter catheter were DC'd and she is able to micturate without any problems And possibly needs discharged to rehabilitation center as soon as the bed is available (2) UTI (urinary tract infection) Status: Resolved Problem Text: Urine cultures negative Patient received 7 days of vancomycin, meropenem and fluconazole We'll DC all antibiotics and monitor clinically Urinary cath was DC'd (3) Hypothyroidism Status: Chronic Problem Text: Continue present meds (4) Protein calorie malnutrition Status: Chronic Problem Text: Patient does have a mild protein calorie malnutrition with BMI of 16.6 Dietary consult appreciated (5) Hypothyroid Status: Chronic Problem Text: Continue home meds Plan/VTE VTE Prophylaxis Ordered?: Yes VS, I&O, 24H, Fishbone Vital Signs/I&O Vital Signs Date Time Temp Pulse Resp B/P (MAP) Pulse Ox O2 Delivery O2 Flow Rate FiO2 06/20/19 09:49 2.0 06/20/19 06:00 97.1 112 21 114/80 (91) 96 Nasal Cannula 06/18/19 04:42 28 I&O- Last 24 Hours up to 6 AM 06/20/19 06:00 Intake Total 575 ml Output Total 775 ml Balance -200 ml Laboratory Data 24H LABS Laboratory Tests 2 06/20/19 06:04: Nucleated Red Blood Cells % (auto) 0.0, Anion Gap 6L, Glomerular Filtration Rate > 60.0, Calcium Level 9.3 CBC/BMP Laboratory Tests 06/20/19 06:04 Microbiology Microbiology 06/15/19 Blood Culture - Preliminary, Resulted No Growth after 72 hours. All specime... 06/15/19 Blood Culture - Preliminary, Resulted No Growth after 72 hours. All specime... ERIKA CASTILLO MD Jun 20, 2019 12:26
[2019-06-20 14:00] VITALS: BP 111/77
[2019-06-20] MEDS: ATORVASTATIN 20 MG TAB PO SCH (20:34)
[2019-06-20] MEDS: traMADol 50 MG TAB PO PRN (20:36)
[2019-06-20 22:00] VITALS: BP 114/60; O2SAT 96
[2019-06-21] MEDS: LEVOTHYROXINE 150MCG TABLET (0.15MG) PO SCH (05:39)
[2019-06-21] MEDS: LEVOTHYROXINE 25MCG TABLET (0.025MG) PO SCH (05:40)
[2019-06-21] MEDS: SODIUM CHLORIDE 0.9% INJ 10 ML SYR IV SCH ×2 (05:40→17:29)
[2019-06-21] MEDS: traMADol 50 MG TAB PO PRN ×2 (05:41→17:29)
[2019-06-21 06:00] VITALS: BP 130/70
[2019-06-21 06:28] LABS: BASO # 0.2 10^3/uL (0.0-0.2); BASO % 1.4 % (0.0-1.0); EOS # 0.4 10^3/uL (0.0-0.5); EOS % 3.4 % (0.0-3.0); HEMATOCRIT 38.6 % (36.0-47.0); HEMOGLOBIN 12.8 g/dl (12.0-15.5); LYMPH # 3.3 10^3/uL (1.5-5.0); LYMPH % 31.1 % (24.0-44.0); MEAN CORPUSCULAR HEMOGLOBIN 31.1 pg (27.0-33.0); MEAN CORPUSCULAR HGB CONC 33.2 g/dl (32.0-36.5); MEAN CORPUSCULAR VOLUME 93.9 fl (80.0-96.0); MONO # 0.9 10^3/uL (0.0-0.8); MONO % 8.3 % (0.0-5.0); NEUTROPHILS % 55.5 % (36.0-66.0); PLATELET COUNT, AUTOMATED 456 10^3/uL (150-450); RED BLOOD COUNT 4.11 10^6/uL (4.00-5.40); WHITE BLOOD COUNT 10.8 10^3/uL (4.0-10.0)
[2019-06-21 07:05] LABS: ALBUMIN 2.9 GM/DL (3.2-5.2); ALT/SGPT 48 U/L (12-78); BILIRUBIN,TOTAL 0.3 MG/DL (0.2-1.0); BLOOD UREA NITROGEN 30 MG/DL (7-18); CALCIUM LEVEL 8.9 MG/DL (8.5-10.1); CARBON DIOXIDE LEVEL 31 MEQ/L (21-32); CHLORIDE LEVEL 105 MEQ/L (98-107); CREATININE FOR GFR 0.41 MG/DL (0.55-1.30); GLOMERULAR FILTRATION RATE > 60.0 (>51); GLUCOSE, FASTING 156 MG/DL (70-100); POTASSIUM SERUM 3.9 MEQ/L (3.5-5.1); SODIUM LEVEL 142 MEQ/L (136-145); TOTAL PROTEIN 6.3 GM/DL (6.4-8.2)
[2019-06-21] MEDS: VALPROIC ACID 250MG/5ML SOL ORAL SYRINGE *DRAW UP EXACT DOSE PO SCH ×2 (10:36→21:10)
[2019-06-21] MEDS: OMEPRAZOLE 20 MG CAP PO SCH (10:37)
[2019-06-21] MEDS: CLOPIDOGREL 75 MG TAB PO SCH (10:37)
[2019-06-21] MEDS: SIMETHICONE 80 MG CHEW TAB PO SCH ×3 (10:37→21:11)
[2019-06-21] MEDS: PREGABALIN 100 MG CAP (LYRICA) PO SCH ×3 (10:37→21:10)
[2019-06-21] MEDS: HEPARIN SOD (PORCINE) 5000 UNITS/ML VIAL (J1644 PER 1000UNITS) SC SCH ×2 (10:38→21:11)
--- NOTE | 2019-06-21 11:29 | IPNPDOC ---
Subjective Date Seen The patient was seen on 06/21/19. Subjective Chief Complaint/HPI Patient is comfortable today in no apparent distress. Offers no new complaints, lying comfortably in her bed General: Denies: ROS Unobtainable, Chills, Night Sweats, Fatigue, Malaise, Normal Appetite, Other Symptoms Constitutional: Denies: Chills, Fever, Malaise, Night Sweats, Weakness, Fatigue, Weight Loss, Lethargy, Other Pulmonary: Denies: Dyspnea, Cough, Pleuritic Chest Pain, Other Symptoms Cardiovascular: Denies: Chest Pain, Palpitations, Orthopnea, Paroxysmal Noc. Dyspnea, Edema, Lt Headedness, Other Symptoms Gastrointestinal: Denies: Nausea, Vomiting, Abdominal Pain, Diarrhea, Constipation, Melena, Hematochezia, Other Symptoms Musculoskeletal: Denies: Neck Pain, Back Pain, Shoulder Pain, Arm Pain, Hand Pain, Leg Pain, Foot Pain, Joint Pain, Muscle Pain, Spasms, Other Symptoms Neurological: Denies: Weakness, Numbness, Incoordination, Change in speech, Confusion, Seizures, Other Symptoms Objective Physical Examination ENT Exam: Positive: Atraumatic, Mucous membr. moist/pink Chest Exam: Positive: Clear to auscultation, Other (. Bilateral basilar crackles) Heart Exam: Positive: Rate Normal, Normal S1, Normal S2 Abdomen Exam: Positive: Normal bowel sounds Extremity Exam: Positive: Normal pulses Skin Exam: Positive: Nl turgor and temperature Neuro Exam: Positive: Strength at 5/5 X4 ext, Cranial Nerves 3-12 NL Assessment /Plan Problems (1) Pneumonia Status: Resolved Problem Text: Most likely aspiration pneumonia Improved with the vancomycin, meropenem and fluconazole. We will DC all antibiotics and fluconazole was DC'd yesterday as patient is asymptomatic, afebrile and repeat CT shows collapse of right lower middle lobe, but meds discussed with Dr. Mckeon. She checked the CAT scan herself and she she explained that actually helped CAT scan looks much better than her previous x- rays and scans and she can have repeat CAT scan in 6 weeks again. Patient is completely asymptomatic. No respiratory symptoms. She is off antibiotics and her WBC count is essentially within normal limits Adams's catheter catheter were DC'd and she is able to micturate without any problems Hospital rehabilitation facility was the bed is available (2) UTI (urinary tract infection) Status: Resolved Problem Text: Urine cultures negative Patient received 7 days of vancomycin, meropenem and fluconazole We'll DC all antibiotics and monitor clinically Urinary cath was DC'd (3) Hypothyroidism Status: Chronic Problem Text: Continue present meds (4) Hypothyroid Status: Chronic Problem Text: Continue home meds (5) Physical deconditioning Status: Acute Problem Text: Secondary to prolonged illness PT is in progress , She will probably need placement in rehabilitation facility for strength training and endurance buildup (6) Protein-calorie malnutrition, mild Status: Chronic Problem Text: Patient does have a mild protein calorie malnutrition with BMI of 16.6 Dietary consult appreciated Plan/VTE VTE Prophylaxis Ordered?: Yes VS, I&O, 24H, Fishbone Vital Signs/I&O Vital Signs Date Time Temp Pulse Resp B/P (MAP) Pulse Ox O2 Delivery O2 Flow Rate FiO2 06/21/19 06:29 17 Nasal Cannula 2.0 06/21/19 06:00 98.3 80 130/70 (90) 98 06/18/19 04:42 28 I&O- Last 24 Hours up to 6 AM 06/21/19 06:00 Intake Total 2410 ml Balance 2410 ml Laboratory Data 24H LABS Laboratory Tests 2 06/21/19 05:50: Immature Granulocyte % (Auto) 0.3, Neutrophils (%) (Auto) 55.5, Lymphocytes (%) (Auto) 31.1, Monocytes (%) (Auto) 8.3H, Eosinophils (%) (Auto) 3.4H, Basophils (%) (Auto) 1.4H, Neutrophils # (Auto) 6.0, Lymphocytes # (Auto) 3.3, Monocytes # (Auto) 0.9H, Eosinophils # (Auto) 0.4, Basophils # (Auto) 0.2, Nucleated Red Blood Cells % (auto) 0.0, Anion Gap 6L, Glomerular Filtration Rate > 60.0, Calcium Level 8.9, Total Bilirubin 0.3, Aspartate Amino Transf (AST/SGOT) 45H, Alanine Aminotransferase (ALT/SGPT) 48, Alkaline Phosphatase 95, Total Protein 6.3L, Albumin 2.9L, Albumin/Globulin Ratio 0.85L CBC/BMP Laboratory Tests 06/21/19 05:50 Microbiology Microbiology 06/15/19 Blood Culture - Final, Complete NO GROWTH AFTER 5 DAYS 2/9/20 Blood Culture - Final, Complete NO GROWTH AFTER 5 DAYS ERIKA CASTILLO MD Jun 21, 2019 11:29
[2019-06-21 11:49] VITALS: O2SAT 96
[2019-06-21 14:00] VITALS: BP 107/72
[2019-06-21] MEDS: SODIUM CHLORIDE 0.9% INJ 10 ML SYR IV PRN (17:34)
[2019-06-21 20:00] VITALS: O2SAT 96
[2019-06-21] MEDS: ATORVASTATIN 20 MG TAB PO SCH (21:11)
[2019-06-21 22:00] VITALS: BP 111/80
[2019-06-22] MEDS: LEVOTHYROXINE 150MCG TABLET (0.15MG) PO SCH (05:36)
[2019-06-22] MEDS: LEVOTHYROXINE 25MCG TABLET (0.025MG) PO SCH (05:36)
[2019-06-22] MEDS: SODIUM CHLORIDE 0.9% INJ 10 ML SYR IV SCH ×2 (05:37→17:50)
[2019-06-22 06:00] VITALS: BP_SYST 104; BP_SYST 111; BP_DIAS 80
[2019-06-22 06:16] LABS: HEMATOCRIT 35.1 % (36.0-47.0); HEMOGLOBIN 11.3 g/dl (12.0-15.5); MEAN CORPUSCULAR HEMOGLOBIN 30.5 pg (27.0-33.0); MEAN CORPUSCULAR HGB CONC 32.2 g/dl (32.0-36.5); MEAN CORPUSCULAR VOLUME 94.9 fl (80.0-96.0); PLATELET COUNT, AUTOMATED 386 10^3/uL (150-450); WHITE BLOOD COUNT 9.2 10^3/uL (4.0-10.0)
[2019-06-22 06:40] LABS: BLOOD UREA NITROGEN 27 MG/DL (7-18); CALCIUM LEVEL 9.4 MG/DL (8.5-10.1); CARBON DIOXIDE LEVEL 34 MEQ/L (21-32); CHLORIDE LEVEL 101 MEQ/L (98-107); CREATININE FOR GFR 0.38 MG/DL (0.55-1.30); GLOMERULAR FILTRATION RATE > 60.0 (>51); GLUCOSE, FASTING 113 MG/DL (70-100); POTASSIUM SERUM 4.2 MEQ/L (3.5-5.1); SODIUM LEVEL 139 MEQ/L (136-145)
[2019-06-22 08:00] VITALS: O2SAT 98
[2019-06-22] MEDS: VALPROIC ACID 250MG/5ML SOL ORAL SYRINGE *DRAW UP EXACT DOSE PO SCH ×2 (09:48→20:41)
[2019-06-22] MEDS: HEPARIN SOD (PORCINE) 5000 UNITS/ML VIAL (J1644 PER 1000UNITS) SC SCH ×2 (09:48→20:42)
[2019-06-22] MEDS: OMEPRAZOLE 20 MG CAP PO SCH (09:49)
[2019-06-22] MEDS: PREGABALIN 100 MG CAP (LYRICA) PO SCH ×3 (09:50→20:41)
[2019-06-22] MEDS: SIMETHICONE 80 MG CHEW TAB PO SCH ×3 (09:51→20:42)
[2019-06-22] MEDS: CLOPIDOGREL 75 MG TAB PO SCH (09:51)
[2019-06-22] MEDS: traMADol 50 MG TAB PO PRN ×2 (09:51→17:49)
--- NOTE | 2019-06-22 10:16 | IPNPDOC ---
Subjective Date Seen The patient was seen on 06/22/19. Subjective Chief Complaint/HPI Patient had a difficulty urinating yesterday and had a straight cath placed in with drainage of 350 mL of urine, patient offers no other complaints General: Denies: ROS Unobtainable, Chills, Night Sweats, Fatigue, Malaise, Normal Appetite, Other Symptoms Constitutional: Denies: Chills, Fever, Malaise, Night Sweats, Weakness, Fatigue, Weight Loss, Lethargy, Other Pulmonary: Denies: Dyspnea, Cough, Pleuritic Chest Pain, Other Symptoms Cardiovascular: Denies: Chest Pain, Palpitations, Orthopnea, Paroxysmal Noc. Dyspnea, Edema, Lt Headedness, Other Symptoms Gastrointestinal: Denies: Nausea, Vomiting, Abdominal Pain, Diarrhea, Const ipation, Melena, Hematochezia, Other Symptoms Musculoskeletal: Denies: Neck Pain, Back Pain, Shoulder Pain, Arm Pain, Hand Pain, Leg Pain, Foot Pain, Joint Pain, Muscle Pain, Spasms, Other Symptoms Neurological: Denies: Weakness, Numbness, Incoordination, Change in speech, Confusion, Seizures, Other Symptoms Objective Physical Examination ENT Exam: Positive: Atraumatic, Mucous membr. moist/pink Chest Exam: Positive: Clear to auscultation, Other (. Bilateral basilar crackles) Heart Exam: Positive: Rate Normal, Normal S1, Normal S2 Abdomen Exam: Positive: Normal bowel sounds Extremity Exam: Positive: Normal pulses Skin Exam: Positive: Nl turgor and temperature Neuro Exam: Positive: Strength at 5/5 X4 ext, Cranial Nerves 3-12 NL Assessment /Plan Problems (1) Pneumonia Status: Resolved Problem Text: Most likely aspiration pneumonia Improved with the vancomycin, meropenem and fluconazole. We will DC all antibiotics and fluconazole was DC'd yesterday as patient is asymptomatic, afebrile and repeat CT shows collapse of right lower middle lobe, but meds discussed with Dr. Mckeon. She checked the CAT scan herself and she she explained that actually helped CAT scan looks much better than her previous x- rays and scans and she can have repeat CAT scan in 6 weeks again. Patient is completely asymptomatic. No respiratory symptoms. She is off antibiotics and her WBC count is essentially within normal limits Adams's catheter catheter were DC'd and she is able to micturate without any problems but had a trouble urinating yesterday and had a for straight cath placed in with the drainage of 350 mL of urine Again, counseling was done and patient will try to urinate on her own if she has difficulty again. They will try straight cath again. We'll avoid too placed long-term Adams catheter in Transfer patient to rehabilitation facility once the bed is available (2) UTI (urinary tract infection) Status: Resolved Problem Text: Urine cultures negative Patient received 7 days of vancomycin, meropenem and fluconazole The biotics would DC the patient is clinically stable, afebrile. No symptoms (3) Hypothyroidism Status: Chronic Problem Text: Continue present meds (4) Hypothyroid Status: Chronic Problem Text: Continue home meds (5) Physical deconditioning Status: Acute Problem Text: Secondary to prolonged illness PT is in progress , She will probably need placement in rehabilitation facility for strength training and endurance buildup (6) Protein-calorie malnutrition, mild Status: Chronic Problem Text: Patient does have a mild protein calorie malnutrition with BMI of 16.6 Dietary consult appreciated Plan/VTE VTE Prophylaxis Ordered?: Yes VS, I&O, 24H, [facility] Vital Signs/I&O Vital Signs Date Time Temp Pulse Resp B/P (MAP) Pulse Ox O2 Delivery O2 Flow Rate FiO2 06/22/19 09:51 18 06/22/19 06:00 98.3 100 104/80 (88) 98 06/21/19 22:00 Nasal Cannula 2.0 06/18/19 04:42 28 I&O- Last 24 Hours up to 6 AM 06/22/19 06:00 Intake Total 680 ml Balance 680 ml Laboratory Data 24H LABS Laboratory Tests 2 06/22/19 05:36: Nucleated Red Blood Cells % (auto) 0.0, Anion Gap 4L, Glomerular Filtration Rate > 60.0, Calcium Level 9.4 CBC/BMP Laboratory Tests 06/22/19 05:36 Microbiology Microbiology 06/15/19 Blood Culture - Final, Complete NO GROWTH AFTER 5 DAYS 06/15/19 Blood Culture - Final, Complete NO GROWTH AFTER 5 DAYS ERIKA CASTILLO MD Jun 22, 2019 10:16
[2019-06-22 14:00] VITALS: BP 105/72
[2019-06-22] MEDS: SCOPOLAMINE 1MG TRANSDERMAL PATCH TOP SCH (17:48)
[2019-06-22] MEDS: SODIUM CHLORIDE 0.9% INJ 10 ML SYR IV PRN (17:50)
[2019-06-22 20:00] VITALS: O2SAT 95
[2019-06-22] MEDS: ATORVASTATIN 20 MG TAB PO SCH (20:42)
[2019-06-22 22:00] VITALS: BP 105/71
[2019-06-23] MEDS: LEVOTHYROXINE 150MCG TABLET (0.15MG) PO SCH (05:48)
[2019-06-23] MEDS: LEVOTHYROXINE 25MCG TABLET (0.025MG) PO SCH (05:48)
[2019-06-23] MEDS: SODIUM CHLORIDE 0.9% INJ 10 ML SYR IV SCH ×2 (05:49→17:04)
[2019-06-23 05:56] LABS: HEMATOCRIT 32.8 % (36.0-47.0); HEMOGLOBIN 10.9 g/dl (12.0-15.5); MEAN CORPUSCULAR HEMOGLOBIN 31.6 pg (27.0-33.0); MEAN CORPUSCULAR HGB CONC 33.2 g/dl (32.0-36.5); MEAN CORPUSCULAR VOLUME 95.1 fl (80.0-96.0); PLATELET COUNT, AUTOMATED 332 10^3/uL (150-450); RED BLOOD COUNT 3.45 10^6/uL (4.00-5.40)
[2019-06-23 06:00] VITALS: BP 102/70
[2019-06-23 06:16] LABS: BLOOD UREA NITROGEN 22 MG/DL (7-18); CALCIUM LEVEL 8.7 MG/DL (8.5-10.1); CARBON DIOXIDE LEVEL 36 MEQ/L (21-32); CHLORIDE LEVEL 101 MEQ/L (98-107); CREATININE FOR GFR 0.33 MG/DL (0.55-1.30); GLOMERULAR FILTRATION RATE > 60.0 (>51); GLUCOSE, FASTING 111 MG/DL (70-100); POTASSIUM SERUM 4.3 MEQ/L (3.5-5.1); SODIUM LEVEL 140 MEQ/L (136-145)
[2019-06-23] MEDS ORDERED: SIME80TA PO (09:00)
[2019-06-23] MEDS ORDERED: SCOP1PAT2 TOP (09:00)
[2019-06-23] MEDS ORDERED: OMEP-218 PO (09:00)
[2019-06-23] MEDS ORDERED: LEVO150T7 PO (09:00)
[2019-06-23] MEDS ORDERED: LEVO25TA5 PO (09:00)
[2019-06-23] MEDS ORDERED: PERCOCET PO (09:00)
[2019-06-23] MEDS: OMEPRAZOLE 20 MG CAP PO SCH (09:38)
[2019-06-23 09:39] VITALS: O2SAT 94
[2019-06-23] MEDS: CLOPIDOGREL 75 MG TAB PO SCH (09:39)
[2019-06-23] MEDS: PREGABALIN 100 MG CAP (LYRICA) PO SCH ×3 (09:39→22:29)
[2019-06-23] MEDS: HEPARIN SOD (PORCINE) 5000 UNITS/ML VIAL (J1644 PER 1000UNITS) SC SCH ×2 (09:40→22:28)
[2019-06-23] MEDS: SIMETHICONE 80 MG CHEW TAB PO SCH ×3 (09:40→22:29)
[2019-06-23] MEDS: ACETAMINOPHEN 325 MG/10.15 ML UDC PO PRN (09:40)
[2019-06-23] MEDS: VALPROIC ACID 250MG/5ML SOL ORAL SYRINGE *DRAW UP EXACT DOSE PO SCH ×2 (09:40→22:29)
--- NOTE | 2019-06-23 12:24 | DS.PDOC ---
Discharge Summary General Date of Admission Jun 06, 2019 at 17:31 Date of Discharge 06/23/19 Discharge Summary PROCEDURES PERFORMED DURING STAY: None. ADMITTING DIAGNOSES: 1. Acute cystitis. Failure to thrive, history of CVA. DISCHARGE DIAGNOSES: 1. Acute cystitis. Failure to thrive, history of CVA. COMPLICATIONS/CHIEF COMPLAINT: Cystitis;Failure To Thrive In Adult;Hx Of Cva, aspiration pneumonia, UTI, hypothyroidism, physical deconditioning, mild to moderate protein calorie malnutrition HISTORY OF PRESENT ILLNESS: 59-year-old female with past medical history of multiple CVAs and hypothyroidism presents from PCPs office for fatigue and failure to thrive. Patient was admitted in April 2019 for UTI, has very low mobility at baseline, requires [id number] help, which is provided by her f rodrigo and neighbor. Patient has expressive aphasia and weakness secondary to her strokes. Patient seen in the ED, unable to relate to me why her PCP sent her here, has no complaint at this time, reports she is at her baseline. As per ED physician. Her PCP believe that she has very poor oral intake, has lost weight and appears more fatigued from her baseline. Workup in the ED shows possible UTI, otherwise within normal limits. Patient denies any short of breath, chest pain, nausea, vomiting, abdominal pain or diarrhea. . HOSPITAL COURSE: Patient was admitted with the diagnosis of failure to thrive and she was found to have a pneumonia on chest x-ray, most likely aspiration pneumonia in nature as she was started on vancomycin, meropenem and fluconazole. Patient improved very well to the above antibiotics R and fluconazole was DC'd it did not show any evidence of fungal infection on clinical examination. With a repeat CT of the chest showed possible collapse of right lower and middle lobe, but I discussed with Dr. Mckeon. He reviewed the CAT scan herself and she explained that actually her CAT scan looks much better than the previous one and she possibly needs a repeat CAT scan in 6 weeks for complete follow-up. Outpatient antibiotics were DC'd and she is been doing well clinically very well without any complaint of problems, and she is afebrile, asymptomatic at the present time. Patient also was diagnosed with UTI, but for which she also received 7 days of vancomycin, meropenem and fluconazole and her symptoms have resolved Pt wass continued on all her medications for hypothyroidism and other chronic illnesses Patient possibly needs transfer to rehabilitation facility for further care and possible long-term care ]. DISCHARGE MEDICATIONS: Please see below. ALLERGIES: Please see below. PHYSICAL EXAMINATION ON DISCHARGE: VITAL SIGNS: Please see below. GENERAL: Within normal limits HEENT: PERRLA. Extraocular muscles intact NECK: Supple. Negative JVD, negative lymphadenopathy CARDIOVASCULAR EXAMINATION: S1, S2, regular RESPIRATORY EXAMINATION: Clear to A&P ABDOMINAL EXAMINATION: Benign EXTREMITIES: No clubbing, cyanosis, edema SKIN: Normal NEUROLOGICAL EXAMINATION: . No focal motor sensory deficit PSYCHIATRIC EXAMINATION: Normal LABORATORY DATA: Please see below. IMAGING: CT of the chest: Impression: Complete consolidation / collapse with minimal central bronchograms involving the right middle lobe and right lower lobe. Associated small right pleural effusion. PROGNOSIS: Good ACTIVITY: As tolerated. DIET: As tolerated DISCHARGE PLAN: To rehabilitation/SNF DISPOSITION: . To rehabilitation/SNF DISCHARGE INSTRUCTIONS: 1. As per discharge instructions. ITEMS TO FOLLOWUP ON ON OUTPATIENT: 1. Follow-up PCP in one week. DISCHARGE CONDITION: Stable. TIME SPENT ON DISCHARGE: 42 minutes. Vital Signs/I&Os Vital Signs Date Time Temp Pulse Resp B/P (MAP) Pulse Ox O2 Delivery O2 Flow Rate FiO2 06/23/19 09:40 2.0 06/23/19 09:39 94 Nasal Cannula 06/23/19 06:00 97.9 98 19 102/70 (81) 06/18/19 04:42 28 I&O- Last 24 Hours up to 6 AM 06/23/19 06:00 Intake Total 1620 ml Output Total 0 ml Balance 1620 ml Laboratory Data Labs 24H Laboratory Tests 2 06/23/19 05:41: Nucleated Red Blood Cells % (auto) 0.0, Anion Gap 3L, Glomerular Filtration Rate > 60.0, Calcium Level 8.7 CBC/BMP Laboratory Tests 06/23/19 05:41 Microbiology Microbiology 06/15/19 Blood Culture - Final, Complete NO GROWTH AFTER 5 DAYS 06/15/19 Blood Culture - Final, Complete NO GROWTH AFTER 5 DAYS Discharge Medications Scheduled Atorvastatin Calcium (Atorvastatin Calcium) 40 Mg Tablet, 40 MG PO QHS, (Reported) Clopidogrel Bisulfate (Clopidogrel) 75 Mg Tab, 75 MG PO DAILY, (Reported) Levothyroxine Sodium (Levothyroxine Sodium) 150 Mcg Tablet, 150 MCG PO DAILY@06 Levothyroxine Sodium (Levothyroxine Sodium) 25 Mcg Tablet, 25 MCG PO DAILY@06 Omeprazole (Omeprazole) 20 Mg Capsule.dr, 20 MG PO DAILY Pregabalin (Lyrica) 200 Mg Cap, 200 MG PO TID, (Reported) Scopolamine (Transderm-Scop) 1 Each Patch.td.3, 1 MG TOP Q72H Simethicone (Simethicone) 80 Mg Tab.chew, 80 MG PO TID Valproic Acid (As Sodium Salt) (Valproic Acid) 250 Mg/5 Ml Solution, 250 MG PO BID, (Reported) Scheduled PRN Acetaminophen (Acetaminophen) 325 Mg Tablet, 650 MG PO Q6H PRN for PAIN, (Reported) Loratadine (Loratadine) 10 Mg Tab, 10 MG PO DAILY PRN for ALLERGIES, (Reported) Oxycodone/Acetaminophen (Oxycodone-Acetaminophen 5-325) 1 Each Tablet, 1 TAB PO Q4HP PRN for MILD/MODERATE PAIN (PS 1-7) Prochlorperazine Maleate (Prochlorperazine Maleate) 10 Mg Tab, 10 MG PO BID PRN for NAUSEA OR VOMITING, (Reported) Tizanidine HCl (Tizanidine HCl) 2 Mg Tablet, 2 MG PO BID PRN for SPASMS, (Reported) Tramadol HCl (Tramadol HCl) 50 Mg Tab, 100 MG PO Q6H PRN for PAIN, (Reported) Allergies Coded Allergies: FISH (Verified Allergy, Severe, TONGUE SWELLING, 06/26/18) Sulfa (Sulfonamide Antibiotics) (Verified Allergy, Severe, dyspnea/hives/vomiting, 10/05/18) Cephalosporins (Verified Allergy, Intermediate, hives, 10/05/18) Contrast Media (Verified Allergy, Intermediate, HIVES, 10/05/18) Nitrate Analogues (Verified Allergy, Intermediate, HIVES, 10/05/18) Penicillins (Verified Allergy, Intermediate, HIVES, 10/05/18) clavulanic acid (Verified Allergy, Intermediate, hives, 10/05/18) metronidazole (Verified Allergy, Intermediate, HIVES, 10/05/18) nitrofurantoin (Verified Allergy, Intermediate, HIVES, 10/05/18) TAPE (Verified Allergy, Unknown, 06/26/18) chlorhexidine (Verified Allergy, Unknown, UNKNOWN TO PATIENT, 10/05/18) ibuprofen (Verified Allergy, Unknown, UNKNOWN TO PATIENT, 10/05/18) morphine (Verified Allergy, Unknown, UNKNOWN TO PATIENT, 10/05/18) procaine (Verified Allergy, Unknown, UNKNOWN TO PATIENT, 10/05/18) Low Fat Milk (Verified Adverse Reaction, Mild, VOMITING, DIARRHEA, 06/26/18) Quinolones (Verified Adverse Reaction, Mild, GI upset, 10/05/18) clarithromycin (Verified Adverse Reaction, Mild, GI upset, 10/05/18) milk (Verified Adverse Reaction, Mild, vomiting/diarrhea, 10/05/18) ERIKA CASTILLO MD Jun 23, 2019 12:23
[2019-06-23 14:00] VITALS: BP 101/69
[2019-06-23 16:00] VITALS: O2SAT 94
[2019-06-23 22:00] VITALS: BP 101/69
[2019-06-23] MEDS: ATORVASTATIN 20 MG TAB PO SCH (22:29)
[2019-06-24 00:39] VITALS: O2SAT 96
[2019-06-24 06:00] VITALS: BP 102/70
[2019-06-24] MEDS: LEVOTHYROXINE 25MCG TABLET (0.025MG) PO SCH (06:27)
[2019-06-24] MEDS: LEVOTHYROXINE 150MCG TABLET (0.15MG) PO SCH (06:34)
[2019-06-24 09:00] VITALS: O2SAT 94
[2019-06-24] MEDS: OMEPRAZOLE 20 MG CAP PO SCH (09:03)
[2019-06-24] MEDS: SIMETHICONE 80 MG CHEW TAB PO SCH ×3 (09:04→20:00)
[2019-06-24] MEDS: CLOPIDOGREL 75 MG TAB PO SCH (09:04)
[2019-06-24] MEDS: VALPROIC ACID 250MG/5ML SOL ORAL SYRINGE *DRAW UP EXACT DOSE PO SCH ×2 (09:04→20:00)
[2019-06-24] MEDS: PREGABALIN 100 MG CAP (LYRICA) PO SCH ×3 (09:04→20:00)
[2019-06-24] MEDS: HEPARIN SOD (PORCINE) 5000 UNITS/ML VIAL (J1644 PER 1000UNITS) SC SCH ×2 (09:04→20:01)
[2019-06-24] MEDS: ACETAMINOPHEN 325 MG/10.15 ML UDC PO PRN (09:09)
[2019-06-24] MEDS: SENOKOT S TAB PO SCH ×2 (13:51→20:00)
[2019-06-24 14:00] VITALS: BP 101/69
[2019-06-24] MEDS: ATORVASTATIN 20 MG TAB PO SCH (20:01)
[2019-06-24 22:00] VITALS: BP 100/73; O2SAT 95
--- NOTE | 2019-06-25 01:16 | IPNPDOC ---
Text Note Date of Service The patient was seen on 06/24/19. NOTE Subjective -No complaints -Explained that we are working on her transportation Objective Physical Examination ENT Exam: Atraumatic, Mucous membr. moist/pink Chest Exam: Bilateral basilar crackles Heart Exam: Rate Normal, Normal S1, Normal S2 Abdomen Exam: Normal bowel sounds Extremity Exam: Normal pulses Skin Exam: Nl turgor and temperature Neuro Exam: Strength at 5/5 X4 ext, Cranial Nerves 3-12 NL Labs: none today Assessment /Plan Problems (1) Pneumonia Status: Resolved, presumed to have been aspiration PNA -afebrile, s/p antibiotics and antifungals course. CT shows collapse of right lower middle lobe, but meds discussed with Dr. Mckeon. She checked the CAT scan herself and she she explained that actually helped CAT scan looks much better than her previous x-rays and scans and she can have repeat CAT scan in 6 weeks again. -Transfer patient to rehabilitation facility once the bed is available (2) UTI (urinary tract infection) Status: Resolved Problem Text: Urine cultures negative Patient received 7 days of vancomycin, meropenem and fluconazole Clinically stable, afebrile. No symptoms (3) Hypothyroidism Status: Chronic Problem Text: Continue present meds (4) Hypothyroid Status: Chronic Problem Text: Continue home meds (5) Physical deconditioning Status: Acute Problem Text: Secondary to prolonged illness PT is in progress She will probably need placement in rehabilitation facility for strength training and endurance buildup VS,Fishbone, I+O VS, Fishbone, I+O Vital Signs Date Time Temp Pulse Resp B/P (MAP) Pulse Ox O2 Delivery O2 Flow Rate FiO2 06/24/19 22:00 97.8 92 15 100/73 (82) 95 Room Air 06/23/19 14:00 2.0 I&O- Last 24 Hours up to 6 AM 06/25/19 06:00 Intake Total 1150 ml Balance 1150 ml BLAYNE WALL MD Jun 25, 2019 01:16
[2019-06-25 06:00] VITALS: BP 100/72
[2019-06-25] MEDS: LEVOTHYROXINE 25MCG TABLET (0.025MG) PO SCH (06:15)
[2019-06-25] MEDS: LEVOTHYROXINE 150MCG TABLET (0.15MG) PO SCH (06:15)
--- NOTE | 2019-06-25 07:22 | IPNPDOC ---
Text Note Date of Service The patient was seen on 06/25/19. NOTE THIS NOTE IS TO SERVE THE FINAL DISCHARGE NOTE FOR THIS ENCOUNTER. THE DISCHARGE SUMMARY WAS PREPARED ON 06/23/2019 AND SIGNED AND IS ACCURATE. THE DISCHARGE WAS DELAYED DUE TO CHALLENGES WITH TRANSPORTATION ARRANGEMENTS TO THE [facility]. -THERE ARE NO CHANGES TO THE DISCHARGE MEDICATIONS AND COURSE DESCRIBED IN THE 06/23 DISCHARGE SUMMARY. OTHERWISE MS. ROY'S EXAM ON DISCHARGE IS BELOW. Objective Physical Examination General: Lying in bed, in no acute distress ENT Exam: Atraumatic, Mucous membr. moist/pink Chest Exam: Bilateral basilar crackles Heart Exam: Rate Normal, Normal S1, Normal S2 Abdomen Exam: Normal bowel sounds Extremity Exam: Normal pulses Skin Exam: Nl turgor and temperature Neuro Exam: Strength at 5/5 X4 ext, Cranial Nerves 3-12 NL Labs: none today Assessment: Pneumonia: s/p antibiotic course. Resolved, presumed to have been aspiration PNA Presumed UTI (urinary tract infection): Urine cultures were ultimately negative. She did however receive 7 days of vancomycin, meropenem and fluconazole Hypothyroidism: Continued synthroid per home dosing Physical deconditioning: Secondary to prolonged illness and is now being discharged to a SNF with continuing physical therapy VS,Fishbone, I+O VS, Fishbone, I+O Vital Signs Date Time Temp Pulse Resp B/P (MAP) Pulse Ox O2 Delivery O2 Flow Rate FiO2 06/25/19 06:00 96.8 99 20 100/72 (81) 94 Room Air 06/23/19 14:00 2.0 I&O- Last 24 Hours up to 6 AM 06/25/19 06:00 Intake Total 1150 ml Balance 1150 ml BLAYNE WALL MD Jun 25, 2019 07:22
[2019-06-25] MEDS: CLOPIDOGREL 75 MG TAB PO SCH (08:01)
[2019-06-25] MEDS: PREGABALIN 100 MG CAP (LYRICA) PO SCH (08:01)
[2019-06-25] MEDS: OMEPRAZOLE 20 MG CAP PO SCH (08:02)
[2019-06-25] MEDS: SENOKOT S TAB PO SCH (08:02)
[2019-06-25] MEDS: HEPARIN SOD (PORCINE) 5000 UNITS/ML VIAL (J1644 PER 1000UNITS) SC SCH (08:02)
[2019-06-25] MEDS: VALPROIC ACID 250MG/5ML SOL ORAL SYRINGE *DRAW UP EXACT DOSE PO SCH (08:02)
[2019-06-25] MEDS: SIMETHICONE 80 MG CHEW TAB PO SCH (08:02)
== END 2019-06-25 08:26 | DRG 463 ==
LOC: M ED 12:22 → EDBD 12:22 → EEVIPCON 17:31 → M ED INP 17:31 → ENRESERVDT 17:56 → ENRESERVTM 17:56 → M MS5PR 18:15 → M ICU 06-08 21:30 → M MS5PR 06-08 22:26 → M PCU 06-09 04:12 → M ICU 06-09 11:56 → M MSPAV 06-13 13:00
PROVIDERS: ADMIT Internal Medicine; ATTEND Internal Medicine
PROC: 05H733Z Insertion of Infusion Device into Right Axillary Vein, Percutaneous Approach (ICD-10-PCS; 2019-06-11)
PROC: 0DH63UZ Insertion of Feeding Device into Stomach, Percutaneous Approach (ICD-10-PCS; principal; 2019-06-12 12:37)
DX: N30.00 Acute cystitis without hematuria (principal); J96.01 Acute respiratory failure with hypoxia; J69.0 Pneumonitis due to inhalation of food and vomit; E43 Unspecified severe protein-calorie malnutrition; R62.7 Adult failure to thrive; E03.9 Hypothyroidism, unspecified; I69.320 Aphasia following cerebral infarction; Z79.01 Long term (current) use of anticoagulants; Z88.0 Allergy status to penicillin; Z88.1 Allergy status to other antibiotic agents; Z88.2 Allergy status to sulfonamides; Z88.5 Allergy status to narcotic agent; Z88.6 Allergy status to analgesic agent; Z88.8 Allergy status to other drugs, medicaments and biological substances; Z91.041 Radiographic dye allergy status; Z91.040 Latex allergy status; Z91.013 Allergy to seafood; Z91.011 Allergy to milk products; E87.6 Hypokalemia

== ENCOUNTER 2019-09-05 12:23 | Emergency (ER) | payer OTHER ==
[~2019-09-05] VITALS: Ht 172.7 cm; Wt 53.5 kg
[~2019-09-05 12:23] MED LIST changes: -TIZA2TAB4 PO; +TIZA2TAB6 PO
[2019-09-05 12:24] VITALS: BP 132/83
== END 2019-09-05 13:48 | disposition home or self-care (01) ==
LOC: M ED 12:23
DX: K94.29 Other complications of gastrostomy (principal); G40.909 Epilepsy, unspecified, not intractable, without status epilepticus; Z86.73 Personal history of transient ischemic attack (TIA), and cerebral infarction without residual deficits; J45.909 Unspecified asthma, uncomplicated; G43.909 Migraine, unspecified, not intractable, without status migrainosus; K21.9 Gastro-esophageal reflux disease without esophagitis; Z91.041 Radiographic dye allergy status; Z88.0 Allergy status to penicillin; Z88.2 Allergy status to sulfonamides; Z88.8 Allergy status to other drugs, medicaments and biological substances; Z88.5 Allergy status to narcotic agent; Z88.1 Allergy status to other antibiotic agents; Z88.4 Allergy status to anesthetic agent; Z91.013 Allergy to seafood; Z91.011 Allergy to milk products; Z91.048 Other nonmedicinal substance allergy status; Z79.899 Other long term (current) drug therapy; Z79.02 Long term (current) use of antithrombotics/antiplatelets

== ENCOUNTER → 2019-09-05 | Outpatient (CLI) | payer OTHER ==
[~2019-09-05] MED LIST changes: +APAP325T4 PO; +ATOR40TA75 PO; +CYCL-707 PO; -CYCL10TA PO; +LEVO112T2 PO; +LEVO150T7 PO; +LEVO25TA5 PO; +OMEP-218 PO; +OXYC-1 PO; -OXYC15TA76 PO; +PATIENT COMMENT; +PERCOCET PO; +SCOP1PAT2 TOP; +SIME80TA PO
[2019-09-05 12:47] LABS: BASO # 0.1 10^3/uL (0.0-0.2); BASO % 1.4 % (0.0-1.0); EOS # 0.2 10^3/uL (0.0-0.5); EOS % 5.3 % (0.0-3.0); HEMATOCRIT 41.9 % (36.0-47.0); HEMOGLOBIN 13.1 g/dl (12.0-15.5); LYMPH # 1.1 10^3/uL (1.5-5.0); MEAN CORPUSCULAR HEMOGLOBIN 27.3 pg (27.0-33.0); MEAN CORPUSCULAR HGB CONC 31.3 g/dl (32.0-36.5); MEAN CORPUSCULAR VOLUME 87.3 fl (80.0-96.0); MONO # 0.4 10^3/uL (0.0-0.8); MONO % 9.3 % (0.0-5.0); NEUTROPHILS # 2.4 10^3/uL (1.5-8.5); NEUTROPHILS % 56.8 % (36.0-66.0); PLATELET COUNT, AUTOMATED 178 10^3/uL (150-450); WHITE BLOOD COUNT 4.2 10^3/uL (4.0-10.0)
[2019-09-05 13:19] LABS: ALBUMIN 3.3 GM/DL (3.2-5.2); ALT/SGPT 20 U/L (12-78); BILIRUBIN,TOTAL 0.4 MG/DL (0.2-1.0); BLOOD UREA NITROGEN 6 MG/DL (7-18); CARBON DIOXIDE LEVEL 30 MEQ/L (21-32); CHLORIDE LEVEL 107 MEQ/L (98-107); CREATININE FOR GFR 0.47 MG/DL (0.55-1.30); GLOMERULAR FILTRATION RATE > 60.0 (>51); GLUCOSE, FASTING 80 MG/DL (70-100); POTASSIUM SERUM 4.5 MEQ/L (3.5-5.1); SODIUM LEVEL 144 MEQ/L (136-145); VALPROIC ACID (DEPAKOTE) 65.3 UG/ML (50.0-100.0)
[2019-09-05 13:20] LABS: HEMOGLOBIN A1c 5.1 %
== END ==
LOC: M LAB 11:48
PROVIDERS: ATTEND Family Medicine
DX: R56.9 Unspecified convulsions (principal)

== ENCOUNTER → 2020-02-16 | Outpatient (CLI) | payer OTHER ==
[~2020-02-16] MED LIST changes: -ASPI81TA85 PO; +ASPI81TA86 PO; +PANT40TA29 PO; -PANT40TA3 PO
[2020-02-16 10:39] LABS: BASO # 0.1 10^3/uL (0.0-0.2); BASO % 1.7 % (0.0-1.0); EOS # 0.3 10^3/uL (0.0-0.5); EOS % 7.2 % (0.0-3.0); HEMATOCRIT 36.3 % (36.0-47.0); HEMOGLOBIN 10.8 g/dl (12.0-15.5); LYMPH # 1.3 10^3/uL (1.5-5.0); LYMPH % 32.9 % (24.0-44.0); MEAN CORPUSCULAR HEMOGLOBIN 23.9 pg (27.0-33.0); MEAN CORPUSCULAR HGB CONC 29.8 g/dl (32.0-36.5); MEAN CORPUSCULAR VOLUME 80.3 fl (80.0-96.0); MONO # 0.4 10^3/uL (0.0-0.8); MONO % 9.2 % (0.0-5.0); NEUTROPHILS % 48.8 % (36.0-66.0); PLATELET COUNT, AUTOMATED 166 10^3/uL (150-450); RED BLOOD COUNT 4.52 10^6/uL (4.00-5.40)
[2020-02-16 11:36] LABS: ALBUMIN 3.3 GM/DL (3.2-5.2); ALT/SGPT 11 U/L (12-78); BILIRUBIN,TOTAL 0.3 MG/DL (0.2-1.0); BLOOD UREA NITROGEN 10 MG/DL (7-18); CALCIUM LEVEL 9.1 MG/DL (8.5-10.1); CARBON DIOXIDE LEVEL 28 MEQ/L (21-32); CHLORIDE LEVEL 109 MEQ/L (98-107); CREATININE FOR GFR 0.48 MG/DL (0.55-1.30); FREE T4 1.36 NG/DL (0.76-1.46); GLOMERULAR FILTRATION RATE > 60.0 (>51); GLUCOSE, FASTING 72 MG/DL (70-100); POTASSIUM SERUM 3.9 MEQ/L (3.5-5.1); SODIUM LEVEL 145 MEQ/L (136-145); THYROID STIMULATING HORMONE 0.031 uIU/ML (0.358-3.740); TOTAL 25(OH) VITAMIN D 49.9 NG/ML (30.0-100.0); TOTAL PROTEIN 5.9 GM/DL (6.4-8.2)
== END ==
LOC: M LAB 08:19
PROVIDERS: ATTEND Physician Assistant
DX: R63.6 Underweight (principal); R56.9 Unspecified convulsions; E03.8 Other specified hypothyroidism; I63.89 Other cerebral infarction; G89.4 Chronic pain syndrome; Z68.1 Body mass index [BMI] 19.9 or less, adult

== ENCOUNTER → 2020-04-19 | Outpatient (CLI) | payer OTHER ==
[2020-04-19 13:17] LABS: BASO # 0.1 10^3/uL (0.0-0.2); BASO % 1.5 % (0.0-1.0); EOS # 0.3 10^3/uL (0.0-0.5); EOS % 5.9 % (0.0-3.0); HEMATOCRIT 38.7 % (36.0-47.0); HEMOGLOBIN 11.8 g/dl (12.0-15.5); LYMPH # 1.5 10^3/uL (1.5-5.0); LYMPH % 27.9 % (24.0-44.0); MEAN CORPUSCULAR HEMOGLOBIN 22.8 pg (27.0-33.0); MEAN CORPUSCULAR HGB CONC 30.5 g/dl (32.0-36.5); MEAN CORPUSCULAR VOLUME 74.9 fl (80.0-96.0); MONO # 0.6 10^3/uL (0.0-0.8); MONO % 10.4 % (0.0-5.0); NEUTROPHILS # 2.9 10^3/uL (1.5-8.5); NEUTROPHILS % 54.1 % (36.0-66.0); PLATELET COUNT, AUTOMATED 205 10^3/uL (150-450); RED BLOOD COUNT 5.17 10^6/uL (4.00-5.40); WHITE BLOOD COUNT 5.4 10^3/uL (4.0-10.0)
[2020-04-19 13:48] LABS: PERCENT SATURATION 5.3 % (13.2-45.0); THYROID STIMULATING HORMONE 0.094 uIU/ML (0.358-3.740)
== END ==
LOC: M LAB 12:19
PROVIDERS: ATTEND Physician Assistant
DX: D64.9 Anemia, unspecified (principal); E03.9 Hypothyroidism, unspecified

== ENCOUNTER → 2020-06-25 | Outpatient (CLI) | payer OTHER ==
[~2020-06-25] MED LIST changes: +SIME80CH5 PO; -SIME80TA PO; +TIZA1TAB12 PO; -TIZA2TAB6 PO
== END ==
LOC: M LAB 11:34
PROVIDERS: ATTEND Physician Assistant
DX: E03.9 Hypothyroidism, unspecified (principal)

== ENCOUNTER → 2020-11-22 | Outpatient (REF) | payer OTHER, MEDICAID ==
[2020-11-22 18:48] LABS: APPEARANCE, URINE CLEAR (CLEAR); BACTERIA, URINE AUTO NEGATIVE (NEGATIVE); BILIRUBIN, URINE AUTO NEGATIVE (NEGATIVE); BLOOD, URINE BLOOD NEGATIVE (NEGATIVE); COLOR, URINE YELLOW (YELLOW); GLUCOSE, URINE (UA) AUTO NEGATIVE (NEGATIVE); KETONE, URINE AUTO NEGATIVE (NEGATIVE); LEUKOCYTE ESTERASE, URINE AUTO NEGATIVE (NEGATIVE); NITRITE, URINE AUTO NEGATIVE (NEGATIVE); PROTEIN, URINE AUTO NEGATIVE (NEGATIVE); RBC, URINE AUTO 0 /HPF (0-3); SPECIFIC GRAVITY URINE AUTO 1.011 (1.002-1.035); SQUAMOUS EPITHELIAL CELL UR AU 0 /HPF (0-6); UROBILINOGEN, URINE AUTO 0.2 mg/dL (0.0-2.0); WBC, URINE AUTO 1 /HPF (0-3)
== END ==
LOC: M SMT 17:19
PROVIDERS: ATTEND Urology
DX: N39.0 Urinary tract infection, site not specified (principal)

== ENCOUNTER → 2020-12-03 | Outpatient (CLI) | payer OTHER ==
[2020-12-03 11:40] LABS: BASO # 0.1 10^3/uL (0.0-0.2); BASO % 1.3 % (0.0-1.0); EOS # 0.3 10^3/uL (0.0-0.5); EOS % 4.9 % (0.0-3.0); HEMATOCRIT 37.8 % (36.0-47.0); HEMOGLOBIN 11.4 g/dl (12.0-15.5); LYMPH # 1.3 10^3/uL (1.5-5.0); LYMPH % 21.9 % (24.0-44.0); MEAN CORPUSCULAR HEMOGLOBIN 23.3 pg (27.0-33.0); MEAN CORPUSCULAR HGB CONC 30.2 g/dl (32.0-36.5); MEAN CORPUSCULAR VOLUME 77.1 fl (80.0-96.0); MONO # 0.4 10^3/uL (0.0-0.8); MONO % 6.4 % (2.0-8.0); NEUTROPHILS # 3.9 10^3/uL (1.5-8.5); NEUTROPHILS % 65.3 % (36.0-66.0); PLATELET COUNT, AUTOMATED 215 10^3/uL (150-450)
[2020-12-03 12:10] LABS: ALBUMIN 3.6 GM/DL (3.2-5.2); ALT/SGPT 18 U/L (12-78); BILIRUBIN,TOTAL 0.4 MG/DL (0.2-1.0); BLOOD UREA NITROGEN 12 MG/DL (7-18); CALCIUM LEVEL 8.8 MG/DL (8.5-10.1); CARBON DIOXIDE LEVEL 26 MEQ/L (21-32); CHLORIDE LEVEL 110 MEQ/L (98-107); CHOLESTEROL LEVEL 178 MG/DL (<200); CHOLESTEROL RISK RATIO 2.438 (<5); CREATININE FOR GFR 0.52 MG/DL (0.55-1.30); GLOMERULAR FILTRATION RATE > 60.0 (>51); GLUCOSE, FASTING 82 MG/DL (70-100); HDL CHOLESTEROL 73 MG/DL (>40); IRON (FE) 28 UG/DL (50-170); LDL CHOLESTEROL 80 MG/DL (<100); NON-HDL-C 105 MG/DL; PERCENT SATURATION 5.7 % (13.2-45.0); POTASSIUM SERUM 3.9 MEQ/L (3.5-5.1); SODIUM LEVEL 145 MEQ/L (136-145); THYROID STIMULATING HORMONE 0.966 uIU/ML (0.358-3.740); TOTAL IRON BINDING CAPACITY 493 UG/DL (250-450); TOTAL PROTEIN 6.4 GM/DL (6.4-8.2); TRIGLYCERIDES LEVEL 127 MG/DL (<150)
== END ==
LOC: M LAB 10:32
PROVIDERS: ATTEND Physician Assistant
DX: D50.9 Iron deficiency anemia, unspecified (principal); J45.30 Mild persistent asthma, uncomplicated; E78.5 Hyperlipidemia, unspecified; E03.9 Hypothyroidism, unspecified

== ENCOUNTER → 2020-12-03 | Outpatient (CLI) | payer OTHER ==
[2020-12-03 12:05] LABS: BLOOD UREA NITROGEN 12 MG/DL (7-18); CALCIUM LEVEL 8.9 MG/DL (8.5-10.1); CARBON DIOXIDE LEVEL 27 MEQ/L (21-32); CHLORIDE LEVEL 109 MEQ/L (98-107); CREATININE FOR GFR 0.52 MG/DL (0.55-1.30); GLOMERULAR FILTRATION RATE > 60.0 (>51); GLUCOSE, FASTING 85 MG/DL (70-100); POTASSIUM SERUM 3.9 MEQ/L (3.5-5.1); SODIUM LEVEL 143 MEQ/L (136-145)
== END ==
LOC: M LAB 10:30
PROVIDERS: ATTEND Urology
DX: N39.0 Urinary tract infection, site not specified (principal)